=== PATIENT | male | born 1930 | race Caucasian/White ===

== ENCOUNTER 2018-01-25 14:35 | Emergency (ER) | payer MEDICARE ==
[2018-01-25 15:42] LABS: Urine Appearance Cloudy; Urine Blood 1+ (Negative); Urine Color Yellow; Urine Ketones Negative (Negative); Urine Protein 1+(30 mg/dL) (Negative); Urine Specific Gravity 1.023 (1.010-1.030); Urine Urobilinogen Negative (Negative)
[2018-01-25 15:45] LABS: ABS Basophils 0.1 10^3/ul (0-0.2); ABS Eosinophils 0.1 10^3/ul (0-0.6); ABS Lymphocytes 1.3 10^3/ul (1.0-4.8); ABS Monocytes 1.4 10^3/ul (0-0.8); ABS Neutrophils 6.3 10^3/ul (1.5-7.7); ABS Nucleated RBC 0 10^3/ul; Hematocrit 36 % (42-52); Hemoglobin 12.3 g/dl (14.0-18.0); Lymphocyte % 13.9 % (25-47); Mean Corpuscular HGB Conc 34 g/dl (31-36); Mean Corpuscular Hemoglobin 32 pg (27-31); Mean Corpuscular Volume 93 fL (80-94); Mean Platelet Volume 7.9 um3 (7.4-10.4); Nucleated Red Blood Cells % 0; Platelet Count 242 10^3/ul (150-450); Red Blood Count 3.86 10^6/ul (4.0-5.4); Red Cell Distribution Width 14 % (10.5-15); White Blood Count 9.2 10^3/ul (3.5-10.8)
[2018-01-25 16:05] LABS: EGFR Non-African American 66.7 (>60)
--- NOTE | 2018-01-25 16:08 | RAD ---
INDICATION: Altered mental status. COMPARISON: Comparison is made with prior study from July 13, 2016. TECHNIQUE: Dual-energy PA and lateral views of the chest were obtained. FINDINGS: The heart is within normal limits in size. Mediastinal and hilar contours appear within normal limits. The lungs are underinflated. There is a small infiltrate at the left lung base. No pleural effusion is seen. IMPRESSION: LOW LUNG VOLUMES, SMALL LEFT BASILAR INFILTRATE.
[2018-01-25] MEDS ORDERED: Levofloxacin TAB* 250 MG PO ONE (17:31)
[2018-01-25 17:38] VITALS: BP 111/55
--- NOTE | 2018-01-25 20:45 | ED ---
Hawa Brown Edward, scribed for Thor Fishman MD on 01/25/18 at 1457 . Altered Mental Status - HPI Summary HPI Summary: 87 y/o male presents to ED c/o acute worsening of his dementia in the past week. PMHx dementia. Around 1 week ago pt had a cough and a head cold. Pt sent by PCP for concerns of UTI and PNA. Denies pain. Associated sx: decreased appetite, urinary and fecal incontinence. - History Of Current Complaint Chief Complaint: EDAltMentalStatus Stated Complaint: ILLNESS Time Seen by Provider: 01/25/18 14:55 Hx Obtained From: Family/Latex Caster Timing: Lasting Weeks Aggravating Factor(s): Nothing Alleviating Factor(s): Nothing - Allergies/Home Medications Allergies/Adverse Reactions: Allergies Allergy/AdvReac Type Severity Reaction Status Date / Time No Known Allergies Allergy Verified 01/25/18 14:59 Home Medications: Home Medications Digoxin TAB* [Lanoxin TAB*] 62.5 mcg PO DAILY 01/25/18 [History Confirmed ] Diltiazem TAB* [Cardizem TAB*] 120 mg PO DAILY 01/25/18 [History Confirmed 01/25] Latanoprost 0.005%* [Xalatan 0.005%*] 1 drop BOTH EYES QPM 01/25/18 [History Confirmed 01/25/18] Warfarin TAB(*) [Coumadin TAB(*)] 1 mg PO SUMOTUWEFRSA 01/25/18 [History Confirmed 01/25/18] Warfarin TAB(*) [Coumadin TAB(*)] 2 mg PO TH 01/25/18 [History Confirmed ] PMH/Surg Hx/FS Hx/Imm Hx Previously Healthy: No Cardiovascular History: Reports: Hx Coronary Artery Disease, Hx Hypercholesterolemia, Hx Hypertension History: Reports: Hx Benign Prostatic Hyperplasia Musculoskeletal History: Reports: Hx Arthritis, Hx Osteoporosis Sensory History: Reports: Hx Cataracts - BILATERAL, Hx Contacts or Glasses - GLASSES, Hx Hearing Aid, Hx Hearing Problem Opthamlomology History: Reports: Hx Cataracts - BILATERAL, Hx Contacts or Glasses - GLASSES Neurological History: Reports: Hx Dementia, Other Neuro Impairments/Disorders - MILD DEMENTIA, MEMORY LOSS - Surgical History Surgery Procedure, Year, and Place: 1989 [place] [facility], [facility]. 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, [facility] Hx Anesthesia Reactions: Yes - CONFUSED AFTER RETINA SURGERY Infectious Disease History: No Infectious Disease History: Reports: Hx Hepatitis Denies: Traveled Outside the [place] in Last 30 Days - Family History Known Family History: Negative: Other - negative malignant hypothermia, negative adverse reacton to anesthesia Family History: No FHx anesthesia reaction - Social History Alcohol Use: Daily Alcohol Amount: wine 1-2 glasses Hx Substance Use: No Substance Use Type: Reports: None Hx Tobacco Use: No Smoking Status (MU): Never Smoked Tobacco Review of Systems Constitutional: Negative Eyes: Negative ENT: Other - head cold Cardiovascular: Negative Positive: Cough Positive: Other - decreased appetite, fecal incontinence Positive: incontinence Musculoskeletal: Negative Skin: Negative Neurological: Other - AMS Psychological: Normal All Other Systems Reviewed And Are Negative: Yes Physical Exam - Summary Physical Exam Summary: Appearance: The patient is well-nourished in no acute distress and in no acute pain. Skin: The skin is warm and dry and skin color reflects adequate perfusion. The skin is tense. HEENT: The head is normocephalic and atraumatic. The pupils are equal and reactive. The conjunctivae are clear and without drainage. Nares are patent and without drainage. Mouth reveals dry mucous membranes and the throat is without erythema and exudate. The external ears are intact. The ear canals are patent and without drainage. The tympanic membranes are intact. Neck: the neck is supple with full range of motion and non-tender. There are no carotid bruits. There is no neck vein distension. Respiratory: Chest is non-tender. Lungs are clear to auscultation and breath sounds are symmetrical and equal. Cardiovascular: Heart is regular rate and rhythm. There is no murmur or rub auscultated. There is no peripheral edema and pulses are symmetrical and equal. Abdomen: The abdomen is soft and non-tender. There are normal bowel sounds heard in all four quadrants and there is no organomegaly palpated. Musculoskeletal: There is no back tenderness noted. Extremities are non-tender with full range of motion. There is good capillary refill. There is no peripheral edema or calf tenderness elicited. Neurological: Patient is alert and oriented to person, place and time. The patient has symmetrical motor strength in all four extremities. Cranial nerves are grossly intact. Deep tendon reflexes are symmetrical and equal in all four extremities. Psychiatric: The patient has an appropriate affect and does not exhibit any anxiety or depression. Triage Information Reviewed: Yes Vital Signs On Initial Exam: Initial Vitals Temp Pulse Resp BP Pulse Ox 98.7 F 67 18 114/54 98 01/25/18 14:37 01/25/18 14:37 01/25/18 14:37 01/25/18 14:37 01/25/18 14:37 Vital Signs Reviewed: Yes Diagnostics - Vital Signs Vital Signs Temp Pulse Resp BP Pulse Ox 01/25/18 14:37 98.7 F 67 18 114/54 98 - Laboratory Lab Results: Lab Results 01/25/18 01/25/18 01/25/18 Range/Units 15:20 15:35 15:35 WBC 9.2 (3.5-10.8) 10^3/ul RBC 3.86 L (4.0-5.4) 10^6/ul Hgb 12.3 L (14.0-18.0) g/dl Hct 36 L (42-52) % MCV 93 (80-94) fL MCH 32 H (27-31) pg MCHC 34 (31-36) g/dl RDW 14 (10.5-15) % Plt Count 242 (150-450) 10^3/ul MPV 7.9 (7.4-10.4) um3 Neut % (Auto) 68.6 (38-83) % Lymph % (Auto) 13.9 L (25-47) % Cuming % (Auto) 15.6 H (0-7) % Eos % (Auto) 1.0 (0-6) % Baso % (Auto) 0.9 (0-2) % Absolute Neuts (auto) 6.3 (1.5-7.7) 10^3/ul Absolute Lymphs (auto) 1.3 (1.0-4.8) 10^3/ul Absolute Monos (auto) 1.4 H (0-0.8) 10^3/ul Absolute Eos (auto) 0.1 (0-0.6) 10^3/ul Absolute Basos (auto) 0.1 (0-0.2) 10^3/ul Absolute Nucleated RBC 0 10^3/ul Nucleated RBC % 0 Sodium 140 (139-145) mmol/L Potassium 3.9 (3.5-5.0) mmol/L Chloride 106 (101-111) mmol/L Carbon Dioxide 27 (22-32) mmol/L Anion Gap 7 (2-11) mmol/L BUN 17 (6-24) mg/dL Creatinine 1.05 (0.67-1.17) mg/dL Est GFR ( Amer) 85.7 (>60) Est GFR (Non-Af Amer) 66.7 (>60) BUN/Creatinine Ratio 16.2 (8-20) Glucose 81 (70-100) mg/dL Calcium 9.0 (8.6-10.3) mg/dL Total Bilirubin 0.60 (0.2-1.0) mg/dL AST 16 (13-39) U/L ALT 13 (7-52) U/L Alkaline Phosphatase 57 (34-104) U/L C-Reactive Protein 86.94 H (< 5.00) mg/L Total Protein 7.1 (6.4-8.9) g/dL Albumin 3.3 (3.2-5.2) g/dL Globulin 3.8 (2-4) g/dL Albumin/Globulin Ratio 0.9 L (1-3) Urine Color Yellow Urine Appearance Cloudy Urine pH 6.0 (5-9) Ur Specific Hardy 1.023 (1.010-1.030) Urine Protein 1+(30 mg/dl) A (Negative) Urine Ketones Negative (Negative) Urine Blood 1+ A (Negative) Urine Nitrate Negative (Negative) Urine Bilirubin Negative (Negative) Urine Urobilinogen Negative (Negative) Ur Leukocyte Esterase Trace A (Negative) Urine WBC (Auto) 2+(11-20/hpf) A (Absent) Urine RBC (Auto) 3+(>10/hpf) A (Absent) Urine Bacteria Absent (Absent) Hyaline Casts Present A (Absent) Urine Glucose Negative (Negative) Digoxin 0.6 L (0.8-2.0) ng/ml Result Diagrams: 01/25/18 15:35 01/25/18 15:35 Lab Statement: Any lab studies that have been ordered have been reviewed, and results considered in the medical decision making process. - Radiology CXR Radiology Interpretation Completed By: Radiologist - LOW LUNG VOLUMES. SMALL LEFT BASILAR INFILTRATE Re-Evaluation - Re-Evaluation 1' Re-Evaluation Time: 17:25 Comment: Discuss plan to d/c, test results Altered Mental Statu Course/Dx - Course Course Of Treatment: Mr. Vizcaino presented with his who was concerned that he may have pneumonia or a UTI because he has not been acting quite right. He was found to have an equivocal U/A and a likely infiltrate on CXR. He was stable here in the ED and I will treat him with PO antibiotics to cover both. - Diagnoses Provider Diagnoses: PNA (pneumonia) Discharge - Sign-Out/Discharge Documenting (check all that apply): Discharge - Discharge Plan Condition: Stable Disposition: HOME Prescriptions: Levofloxacin TAB* [Levaquin TAB*] 750 mg PO DAILY #10 tab Patient Education Materials: Pneumonia (ED) Referrals: Nicolasa Garner MD [Primary Care Provider] - 4 Days (PLEASE F/U IN 3-5 DAYS) Additional Instructions: RETURN TO THE ED FOR CHANGING OR WORSENING SYMPTOMS - Billing Disposition and Condition Condition: STABLE Disposition: HOME The documentation as recorded by the Hawa moreno Edward accurately reflects the service I personally performed and the decisions made by me, Thor Fishman MD.
== END 2018-01-25 17:45 | disposition home or self-care (01) ==
LOC: ED 14:35
DX: J18.9 Pneumonia, unspecified organism (principal); R05 Cough
CPT/HCPCS: 36415; 71046; 80053; 80162; 81003; 81015; 85025; 86140; 87086; 99283; A9270-GY

== ENCOUNTER 2018-02-10 10:46 | Emergency (ER) | payer MEDICARE ==
--- OUTSIDE RECORDS SUMMARY | 2018-02-10 11:01 | XMS REPORT ---
:1930 External Reference #:[id number] Author Organization [employer] [facility] Address [address] [address] Phone [phone] Care Team Providers Name Role Phone Nicolasa Garner MD Primary Care Physician Unavailable Payers Type Date Identification Numbers Payment Provider Subscriber Medicare Primary Effective: Policy Number: Medicare Ryder Vizcaino 1955 [id number] PayID: [id number] [address] [place] [address] [facility] Policy Number: [id number] [facility] Ryder iVzcaino PayID: [id number] [address] [place] [address] Advance Directives Type Date Description Status Comment Other Directive 07/18/2016 Health Care Proxy Current and Verified Problems Date Description Provider Status Onset: 02/08/2014 Heart disease Vikas Reece M.D. Active Onset: 02/08/2014 Coronary arteriosclerosis Vikas Reece M.D. Active Onset: 04/26/2015 Alzheimer's disease Lisa Lr M.D. Active Onset: 07/13/2016 Pulmonary embolism Celio Santamaria M.D. 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 Active Onset: 07/13/2016 Paroxysmal atrial fibrillation Celio Santamaria M.D. Active Note: Intolerant of long acting cardizem [place] [facility] [place] Onset: 08/26/2016 Dementia Celio Santamaria M.D. Active Onset: 07/13/2016 Deep venous thrombosis of lower Celio Santamaria M.D. 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 Smoking Patient is a former smoker quit smoking cigarettes whe he was in his 40's Recreational Drug Use Denies Drug Use Daily Caffeine Consumes on average 1 cup of decaffeinated hot tea per day Exercise Type/Frequency Exercises sporadically walking around block Allergies, Adverse Reactions, Alerts Date Description Reaction Status Severity Comments 02/08/2014 Simvastatin cognitive impairment active per patients 10/19/2012 NKDA inactive Medications Medication Date Status Form Strength Qnty SIG Indications Ordering Provider Digoxin 08/14/ Active Tablets 125mcg 45tabs 1/2 tab by Z79.01 Vikas Schneider 2015 mouth every Brand, day M.D. Aricept 04/22/ Active Tablets 10mg 60tabs take two Naila 2013 tablets MD Tejinder every day Vitamin B-12 / Active Tablets 500mcg 1 by mouth Unknown 0000 Sub three times a week Warfarin / Active Tablets 1mg 90tabs daily as I26.99 Brett E. Sodium 0000 directed Carissa, M.DTanika 2MG Latanoprost / Active Solution 0.005% 1 gtt to Unknown 0000 bothe eyes daily Diltiazem CD / Active Caps ER 120mg 90caps 1 by mouth Nicolasa 0000 24HR every day Cora Garner Vitamin D3 / Active Capsules 500U 1 by mouth Unknown Super Strength 0000 2-3 times a week Levofloxacin / Active Tablets 750mg Take One Unknown 0000 Tablet By Mouth Every Day ends 02/03/18 Xarelto 02/01/ Hx Tablets 20mg 90tabs 1 by mouth 427.32 Vikas Schneider 2014 - every day Brand, 11/20/ M.DTanika 2015 Aricept 10/19/ Hx Tablets 10mg 60tabs 2 tab by Lisa Christensen 2012 - mouth every Stackman, day M.D. 2012 Aricept / Hx Tablets 23mg 30tabs 1 tab po Lisa Christensen 0000 - qhs Stacksterling, 04/22/ M.DTanika 2012 Aspirin / Hx Tablets 81mg 1 po qd Unknown 0000 - 2015 Vitamin 00/00/ Hx Tablets 1 po qd Unknown B-Complex - 2014 Diltiazem HCL /00/ Hx Caps ER 120mg 90caps 1 po qd Unknown 0000 - 24HR 2015 Doxazosin /00/ Hx Tablets 4mg 30tabs 1 po qd Unknown Mesylate - 2015 Lisinopril /00/ Hx Tablets 20mg 90tabs 1 po qd Unknown 2014 Simvastatin /00/ Hx Tablets 20mg 90tabs 1 po qhs Unknown 2013 Vitamin D-3 00/ Hx Tablets 400Unit 1 po qd Unknown 2013 Glutamine /00/ Hx Capsules 500mg Unknown 2013 Ginkoba 00/ Hx Tablets 40mg qod Unknown 2013 Fish Oil / Hx Capsules 600mg 90caps 1 po qd Unknown - 2014 Vitamin D3 00/ Hx Capsules 400Unit 1 cap po Unknown 0000 - daily 2014 Mirtazapine 00/ Hx Tablets 7.5mg 30tabs pt not Unknown 0000 - using it . 2015 Diltiazem HCL 0000/ Hx Tablets 30mg 1 by mouth Z79.01 Unknown 0000 - four times 11/12/ a day 2016 Digoxin 00/00/ Hx Tablets 0.125mg 1/2 by Unknown 0000 - mouth every 08/14/ day 2016 Magnesium /00/ Hx Capsules 125mg 1 caps a Unknown Citrate 0000 - couple 01/28/ times a 2017 week Immunizations CPT Code Status Date Vaccine Lot # [id number] Given 09/07/2017 Influenza Virus Vaccine, Quadrivalent, Split, [id number] Preservative Free [id number] Given 09/09/2016 Pneumonia Vaccine [id number] Vital Signs Date Vital Result Comment 01/29/2018 Height 66 inches 5'6" Weight 148.00 lb Heart Rate 76 /min BP Systolic Sitting 92 mmHg BP Diastolic Sitting 50 mmHg Respiratory Rate 15 /min BMI (Body Mass Index) 23.9 kg/m2 12/10/2017 Weight 152.00 lb Heart Rate 72 /min BP Systolic Sitting 98 mmHg BP Diastolic Sitting 58 mmHg O2 % BldC Oximetry 96 % 09/07/2017 Height 66.5 inches 5'6.50" Weight 150.38 lb Heart Rate 65 /min BP Systolic Sitting 106 mmHg BP Diastolic Sitting 64 mmHg O2 % BldC Oximetry 95 % BMI (Body Mass Index) 23.9 kg/m2 06/26/2017 Height 58 inches 4'10" Weight 148.00 lb with shoes Heart Rate 108 /min BP Systolic Sitting 120 mmHg Rue reg cuff BP Diastolic Sitting 66 mmHg Rue reg cuff BP Systolic Standing 118 mmHg Rue reg cuff BP Diastolic Standing 68 mmHg Rue reg cuff Respiratory Rate 18 /min BMI (Body Mass Index) 30.9 kg/m2 Ejection Fraction 45-50% 07/14/2016-echo 06/18/2017 Height 58 inches 4'10" Weight 150.00 lb Heart Rate 88 /min BP Systolic Sitting 110 mmHg BP Diastolic Sitting 74 mmHg Respiratory Rate 18 /min BMI (Body Mass Index) 31.3 kg/m2 04/29/2017 Weight 151.12 lb Heart Rate 66 /min BP Systolic 146 mmHg BP Diastolic 70 mmHg Body Temperature 97.9 F O2 % BldC Oximetry 97 % 12/11/2016 Height 68 inches 5'8" Weight 152.00 lb Heart Rate 60 /min BP Systolic Sitting 112 mmHg BP Diastolic Sitting 68 mmHg Respiratory Rate 17 /min BMI (Body Mass Index) 23.1 kg/m2 12/10/2016 Weight 150.00 lb with shoes Heart Rate 61 /min irreg BP Systolic Sitting 138 mmHg Lue reg cuff BP Diastolic Sitting 78 mmHg Lue reg cuff BP Systolic Standing 124 mmHg Lue regcuff BP Diastolic Standing 70 mmHg Lue regcuff Respiratory Rate 17 /min 11/28/2016 Body Temperature 98.2 F recheck 11/28/2016 Height 68 inches 5'8" Weight 158.12 lb Heart Rate 64 /min BP Systolic 110 mmHg BP Diastolic 70 mmHg Body Temperature 94.5 F O2 % BldC Oximetry 97 % BMI (Body Mass Index) 24.0 kg/m2 08/26/2016 Height 68 inches 5'8" Weight 145.38 lb Heart Rate 71 /min BP Systolic 100 mmHg BP Diastolic 75 mmHg Body Temperature 97.5 F O2 % BldC Oximetry 98 % BMI (Body Mass Index) 22.1 kg/m2 08/08/2016 Height 68 inches 5'8" Weight 143.50 lb with shoes Heart Rate 70 /min BP Systolic Sitting 110 mmHg Rue reg cuff BP Diastolic Sitting 60 mmHg Rue reg cuff BP Systolic Standing 106 mmHg Rue reg cuff BP Diastolic Standing 72 mmHg Rue reg cuff Respiratory Rate 16 /min BMI (Body Mass Index) 21.8 kg/m2 Ejection Fraction 45-50% 07/14/2016 06/05/2016 Height 68 inches 5'8" Weight 149.50 lb Heart Rate 68 /min BP Systolic Sitting 102 mmHg BP Diastolic Sitting 60 mmHg Respiratory Rate 16 /min BMI (Body Mass Index) 22.7 kg/m2 12/06/2015 Height 68 inches 5'8" Weight 162.00 lb Heart Rate 76 /min BP Systolic Sitting 102 mmHg BP Diastolic Sitting 70 mmHg Respiratory Rate 17 /min BMI (Body Mass Index) 24.6 kg/m2 07/26/2015 Height 68 inches 5'8" Weight 168.31 lb with shoes Heart Rate 58 /min BP Systolic Sitting 126 mmHg LA, reg cuff BP Diastolic Sitting 64 mmHg LA, reg cuff BP Systolic Standing 128 mmHg LA BP Diastolic Standing 68 mmHg LA Respiratory Rate 14 /min BMI (Body Mass Index) 25.6 kg/m2 Ejection Fraction 55-60% 02/08/2015 04/26/2015 Height 68 inches 5'8" Weight 168.50 lb Heart Rate 54 /min BP Systolic Sitting 130 mmHg BP Diastolic Sitting 78 mmHg Respiratory Rate 16 /min BMI (Body Mass Index) 25.6 kg/m2 03/14/2015 Height 68 inches 5'8" Weight 171.00 lb w/shoes Heart Rate 66 /min BP Systolic Sitting 160 mmHg LA reg cuff BP Diastolic Sitting 82 mmHg LA reg cuff Respiratory Rate 12 /min BMI (Body Mass Index) 26.0 kg/m2 Ejection Fraction 60-65 echo 11/08/13 02/23/2015 Height 68 inches 5'8" Weight 172.00 lb Heart Rate 140 /min BP Systolic Sitting 116 mmHg right arm, reg cuff BP Diastolic Sitting 74 mmHg right arm, reg cuff BP Systolic Standing 100 mmHg right arm, reg cuff BP Diastolic Standing 72 mmHg right arm, reg cuff Respiratory Rate 16 /min BMI (Body Mass Index) 26.1 kg/m2 Ejection Fraction 55-60% 02/08/15 02/01/2015 Height 68 inches 5'8" Weight 173.00 lb w/o shoes Heart Rate 104 /min irreg BP Systolic Sitting 118 mmHg Ra, reg cuff BP Diastolic Sitting 82 mmHg Ra, reg cuff BP Systolic Standing 104 mmHg Ra BP Diastolic Standing 70 mmHg Ra Respiratory Rate 18 /min BMI (Body Mass Index) 26.3 kg/m2 Ejection Fraction 62% Calculated Ef as of 02/10/13 11/02/2014 Height 68 inches 5'8" Weight 173.00 lb Heart Rate 64 /min BP Systolic Sitting 110 mmHg BP Diastolic Sitting 64 mmHg Respiratory Rate 16 /min BMI (Body Mass Index) 26.3 kg/m2 04/27/2014 Height 68 inches 5'8" Weight 164.00 lb Heart Rate 72 /min BP Systolic Sitting 112 mmHg BP Diastolic Sitting 60 mmHg Respiratory Rate 16 /min BMI (Body Mass Index) 24.9 kg/m2 02/08/2014 Height 68 inches 5'8" Weight 167.00 lb Heart Rate 56 /min BP Systolic Sitting 90 mmHg LA reg cuff BP Diastolic Sitting 50 mmHg LA reg cuff BP Systolic Standing 110 mmHg LA BP Diastolic Standing 62 mmHg LA Respiratory Rate 16 /min BMI (Body Mass Index) 25.4 kg/m2 10/27/2013 Heart Rate 60 /min BP Systolic Sitting 140 mmHg BP Diastolic Sitting 70 mmHg Respiratory Rate 16 /min 04/22/2013 Height 70 inches 5'10" Weight 159.00 lb Heart Rate 56 /min BP Systolic Sitting 102 mmHg BP Diastolic Sitting 54 mmHg Respiratory Rate 8 /min BMI (Body Mass Index) 22.8 kg/m2 10/19/2012 Heart Rate 60 /min BP Systolic 120 mmHg BP Diastolic 58 mmHg Respiratory Rate 14 /min Results Test Date Test Result H/L Range Note CBC Auto Diff 01/25/2018 White Blood Count 9.2 10^3/uL 3.5-10.8 Red Blood Count 3.86 10^6/uL Low 4.0-5.4 Hemoglobin 12.3 g/dL Low 14.0-18.0 Hematocrit 36 % Low 42-52 Mean Corpuscular Volume 93 fL 80-94 Mean Corpuscular Hemoglobin 32 pg High 27-31 Mean Corpuscular HGB Conc 34 g/dL 31-36 Red Cell Distribution Width 14 % 10.5-15 Platelet Count 242 10^3/uL 150-450 Mean Platelet Volume 7.9 um3 7.4-10.4 Abs Neutrophils 6.3 10^3/uL 1.5-7.7 Abs Lymphocytes 1.3 10^3/uL 1.0-4.8 Abs Monocytes 1.4 10^3/uL High 0-0.8 Abs Eosinophils 0.1 10^3/uL 0-0.6 Abs Basophils 0.1 10^3/uL 0-0.2 Abs Nucleated RBC 0 10^3/uL Granulocyte % 68.6 % 38-83 Lymphocyte % 13.9 % Low 25-47 Monocyte % 15.6 % High 0-7 Eosinophil % 1.0 % 0-6 Basophil % 0.9 % 0-2 Nucleated Red Blood Cells % 0 Comp Metabolic Panel 01/25/2018 Sodium 140 mmol/L 139-145 Potassium 3.9 mmol/L 3.5-5.0 Chloride 106 mmol/L 101-111 Co2 Carbon Dioxide 27 mmol/L 22-32 Anion Gap 7 mmol/L 2-11 Glucose 81 mg/dL 70-100 Blood Urea Nitrogen 17 mg/dL 6-24 Creatinine 1.05 mg/dL 0.67-1.17 BUN/Creatinine Ratio 16.2 8-20 Calcium 9.0 mg/dL 8.6-10.3 Total Protein 7.1 g/dL 6.4-8.9 Albumin 3.3 g/dL 3.2-5.2 Globulin 3.8 g/dL 2-4 Albumin/Globulin Ratio 0.9 Low 1-3 Total Bilirubin 0.60 mg/dL 0.2-1.0 Alkaline Phosphatase 57 U/L 34-104 Alt 13 U/L 7-52 Ast 16 U/L 13-39 Egfr Non- 66.7 >60 Egfr 85.7 >60 1 Laboratory test finding 01/25/2018 C Reactive Protein 86.94 mg/L High &lt ; 5.00 2 Digoxin 0.6 ng/ml Low 0.8-2.0 Urinalysis Profile 01/25/2018 Urine Color Yellow Urine Appearance Cloudy Urine Specific [place] 1.023 1.010-1.030 Urine pH 6.0 5-9 Urine Urobilinogen Negative Negative Urine Ketones Negative Negative Urine Protein 1+(30 mg/dL) Negative Urine Leukocytes Trace Negative Urine Blood 1+ Negative Urine Nitrite Negative Negative Urine Bilirubin Negative Negative Urine Glucose Negative Negative Urine White Blood Cell 2+(11-20/hpf) Absent Urine Red Blood Cell 3+(>10/hpf) Absent Urine Bacteria Absent Absent Urine Hyaline Casts Present Absent Urine Culture And Sensitivities 01/25/2018 Urine Culture SEE RESULT BELOW 3 Protime W/ Inr 01/07/2018 Prothrombin Time 26.8 Inr 2.2 Protime W/ Inr 12/10/2017 Prothrombin Time 28.2 Inr 2.3 Protime W/ Inr 12/03/2017 Prothrombin Time 18.5 Inr 1.5 Protime W/ Inr 11/12/2017 Prothrombin Time 26.9 Inr 2.2 Protime W/ Inr 11/02/2017 Prothrombin Time 21.6 Inr 1.8 Protime W/ Inr 10/22/2017 Prothrombin Time 24.5 Inr 2.0 Protime W/ Inr 09/24/2017 Prothrombin Time 26.4 Inr 2.2 Protime W/ Inr 09/14/2017 Prothrombin Time 21.1 Inr 1.7 Protime W/ Inr 09/07/2017 Prothrombin Time 21.7 Inr 1.8 Protime W/ Inr 09/02/2017 Prothrombin Time 36.2 Inr 3.0 Lipid Profile (Trig/Chol/HDL) 08/28/2017 Triglycerides 100 mg/dL 4 Cholesterol 220 mg/dL 5 HDL Cholesterol 58.7 mg/dL 6 LDL Cholesterol 141 mg/dL 7 Comp Metabolic Panel 08/28/2017 Sodium 139 mmol/L 133-145 Potassium 4.1 mmol/L 3.5-5.0 Chloride 107 mmol/L 101-111 Co2 Carbon Dioxide 25 mmol/L 22-32 Anion Gap 7 mmol/L 2-11 Glucose 86 mg/dL 70-100 Blood Urea Nitrogen 17 mg/dL 6-24 Creatinine 0.95 mg/dL 0.67-1.17 BUN/Creatinine Ratio 17.9 8-20 Calcium 9.1 mg/dL 8.6-10.3 Total Protein 6.6 g/dL 6.4-8.9 Albumin 3.9 g/dL 3.2-5.2 Globulin 2.7 g/dL 2-4 Albumin/Globulin Ratio 1.4 1-3 Total Bilirubin 1.10 mg/dL High 0.2-1.0 Alkaline Phosphatase 68 U/L 34-104 Alt 16 U/L 7-52 Ast 21 U/L 13-39 Egfr Non- 75.0 >60 Egfr 96.4 >60 8 CBC Auto Diff 08/28/2017 White Blood Count 9.6 10^3/uL 3.5-10.8 Red Blood Count 3.95 10^6/uL Low 4.0-5.4 Hemoglobin 12.7 g/dL Low 14.0-18.0 Hematocrit 38 % Low 42-52 Mean Corpuscular Volume 95 fL High 80-94 Mean Corpuscular Hemoglobin 32 pg High 27-31 Mean Corpuscular HGB Conc 34 g/dL 31-36 Red Cell Distribution Width 14 % 10.5-15 Platelet Count 229 10^3/uL 150-450 Mean Platelet Volume 9 um3 7.4-10.4 Abs Neutrophils 6.6 10^3/uL 1.5-7.7 Abs Lymphocytes 1.6 10^3/uL 1.0-4.8 Abs Monocytes 1.3 10^3/uL High 0-0.8 Abs Eosinophils 0.1 10^3/uL 0-0.6 Abs Basophils 0.1 10^3/uL 0-0.2 Abs Nucleated RBC 0 10^3/uL Granulocyte % 68.2 % 38-83 Lymphocyte % 16.2 % Low 25-47 Monocyte % 13.2 % High 1-9 Eosinophil % 1.4 % 0-6 Basophil % 1.0 % 0-2 Nucleated Red Blood Cells % 0 Protime W/ Inr 08/06/2017 Prothrombin Time 24.6 Inr 2.0 Protime W/ Inr 07/09/2017 Prothrombin Time 26.5 Inr 2.2 Protime W/ Inr 07/02/2017 Prothrombin Time 23.2 Inr 1.9 Protime W/ Inr 06/24/2017 Prothrombin Time 16.9 Inr 1.4 Protime W/ Inr 06/10/2017 Prothrombin Time 23.7 Inr 1.9 Protime W/ Inr 05/13/2017 Prothrombin Time 28.3 Inr 2.4 Comp Metabolic Panel 04/30/2017 Sodium 141 mmol/L 133-145 Potassium 4.1 mmol/L 3.5-5.0 Chloride 106 mmol/L 101-111 Co2 Carbon Dioxide 27 mmol/L 22-32 Anion Gap 8 mmol/L 2-11 Glucose 96 mg/dL 70-100 Blood Urea Nitrogen 15 mg/dL 6-24 Creatinine 0.96 mg/dL 0.67-1.17 BUN/Creatinine Ratio 15.6 8-20 Calcium 9.3 mg/dL 8.6-10.3 Total Protein 7.1 g/dL 6.4-8.9 Albumin 3.9 g/dL 3.2-5.2 Globulin 3.2 g/dL 2-4 Albumin/Globulin Ratio 1.2 1-3 Total Bilirubin 0.90 mg/dL 0.2-1.0 Alkaline Phosphatase 62 U/L 34-104 Alt 13 U/L 7-52 Ast 19 U/L 13-39 Egfr Non- 74.1 >60 Egfr 95.3 >60 9 Protime W/ Inr 04/29/2017 Prothrombin Time 24.9 Inr 2.1 Protime W/ Inr 03/31/2017 Prothrombin Time 31.7 Inr 2.6 Protime W/ Inr 03/03/2017 Prothrombin Time 26.3 Inr 2.2 Protime W/ Inr 02/03/2017 Prothrombin Time 28.7 Inr 2.4 Protime W/ Inr 01/20/2017 Prothrombin Time 28.0 Inr 2.3 Protime W/ Inr 01/13/2017 Prothrombin Time 24.4 Inr 2.0 Protime W/ Inr 12/30/2016 Prothrombin Time 32.2 Inr 2.7 Protime W/ Inr 12/16/2016 Prothrombin Time 31.6 Inr 2.6 Protime W/ Inr 12/09/2016 Prothrombin Time 37.4 Inr 3.1 Protime W/ Inr 12/02/2016 Prothrombin Time 28.6 Inr 2.4 Protime W/ Inr 11/25/2016 Prothrombin Time 25.8 Inr 2.2 Protime W/ Inr 11/18/2016 Prothrombin Time 20.4 Inr 1.7 Protime W/ Inr 10/21/2016 Prothrombin Time 25.5 Inr 2.1 Protime W/ Inr 09/23/2016 Prothrombin Time 27.5 Inr 2.3 Protime W/ Inr 09/09/2016 Prothrombin Time 27.2 Inr 2.3 Protime W/ Inr 08/26/2016 Prothrombin Time 29.2 Inr 2.4 Laboratory test finding 08/26/2016 Digoxin 0.5 ng/ml Low 0.8-2.0 1 Because ethnic data is not always readily available, this report includes an eGFR for both -Americans and non- Americans. The National Kidney Disease Education Program (NKDEP) does not endorse the use of the MDRD equation for patients that are not between the ages of 18 and 70, are , have extremes of body size, muscle mass, or nutritional status, or are non- or non-. According to the National Kidney Foundation, irrespective of diagnosis, the stage of the disease is based on the level of kidney function: Stage Description GFR(mL/min/1.73 m(2)) 1 Kidney damage with normal or decreased GFR 90 2 Kidney damage with mild decrease in GFR 60-89 3 Moderate decrease in GFR 30-59 4 Severe decrease in GFR 15-29 5 Kidney failure <15 (or dialysis) 2 Acute inflammation: >10.00 3 SEE RESULT BELOW Name: RYDER VIZCAINO : [address]: Thor Fishman MD Acct: [id number] Unit: [id number] AGE: 87 Location: ED Re01/25/18 SEX: M Status: DEP ER SPEC: [id number] [place]: 01/25/18-[address] [facility] [address]: Thor Fishman MD REQ: [id number] RECD: 01/25/18 STATUS: COMP [facility] : Nicolasa Garner MD _ SOURCE: URINE SPDESC: ORDERED: Urine Culture Procedure Result Reported Site Urine Culture Final 01/26/18- 1253 ML No growth of clinically significant organisms * ML - Main Lab . END OF REPORT DEPARTMENT OF PATHOLOGY, [address] [place] [address] Jayesh Dinero M.D. Director [facility] # [id number] 4 Desirable: <150 Borderline High: 150-199 High: 200-499 Very High: >500 5 Desirable: <200 Borderline High: 200-239 High: >239 6 Low: <40 Desirable: 40-60 High: >60 7 Desirable: <100 Near Optimal: 100-129 Borderline High: 130-159 High: 160-189 Very High: >189 8 Because ethnic data is not always readily available, this report includes an eGFR for both -Americans and non- Americans. The National Kidney Disease Education Program (NKDEP) does not endorse the use of the MDRD equation for patients that are not between the ages of 18 and 70, are , have extremes of body size, muscle mass, or nutritional status, or are non- or non-. According to the National Kidney Foundation, irrespective of diagnosis, the stage of the disease is based on the level of kidney function: Stage Description GFR(mL/min/1.73 m(2)) 1 Kidney damage with normal or decreased GFR 90 2 Kidney damage with mild decrease in GFR 60-89 3 Moderate decrease in GFR 30-59 4 Severe decrease in GFR 15-29 5 Kidney failure <15 (or dialysis) 9 Because ethnic data is not always readily available, this report includes an eGFR for both -Americans and non- Americans. The National Kidney Disease Education Program (NKDEP) does not endorse the use of the MDRD equation for patients that are not between the ages of 18 and 70, are , have extremes of body size, muscle mass, or nutritional status, or are non- or non-. According to the National Kidney Foundation, irrespective of diagnosis, the stage of the disease is based on the level of kidney function: Stage Description GFR(mL/min/1.73 m(2)) 1 Kidney damage with normal or decreased GFR 90 2 Kidney damage with mild decrease in GFR 60-89 3 Moderate decrease in GFR 30-59 4 Severe decrease in GFR 15-29 5 Kidney failure <15 (or dialysis) Procedures Date CPT Code Description Status 01/06/2017 57476 Holter Monitor Review (24 hr)dr syed & bia Completed only 12/30/2016 80711 ECG Monitor/Recording W/Visual Superimposition Scanning Completed 12/10/2016 20826 EKG Tracing & Interpretation Completed 08/08/2016 40821 EKG Tracing & Interpretation Completed 07/14/2016 58542 ECHO Transthorasic Realtime 2D W Doppler & Color Completed Flow [facility] 07/13/2016 00059 EKG, Interpretation Only Completed 07/10/2016 13715 EKG, Interpretation Only Completed 06/12/2016 Colonoscopy Completed 07/26/2015 72847 EKG Tracing & Interpretation Completed 03/14/2015 92263 EKG Tracing & Interpretation Completed 02/23/2015 37944 EKG Tracing & Interpretation Completed 02/09/2015 81275 Holter Monitoring 24 HR New Completed 02/08/2015 37615 ECHO Transthoracic, Real-Time 2D With Doppler And Color Completed Flow 02/01/2015 18389 EKG Tracing & Interpretation Completed 02/08/2014 39172 EKG Tracing & Interpretation Completed 02/10/2013 31010 ECHO Transthoracic, Real-Time 2D With Doppler And Color Completed Flow 02/07/2013 52315 EKG Tracing & Interpretation Completed Encounters Type Date Location Provider CPT E/M Dx Office Visit 12/10/2017 [facility] Internal Medicine Nicolasa Garner M.D. 71505 Z79.01 10:50a - [place] I48.2 H91.93 Office Visit 09/15/2017 11:00a [facility] [place] [address] L82.1 D22.5 Office Visit 06/26/2017 11:15a [facility] Cheo Reece, 17238 I48.2 Che Shepherd I25.10 Office Visit 06/18/2017 11:45a [facility], 70026 G30.9 Services Of [facility] Kristofer.Jennie F02.80 Office Visit 04/29/2017 11:50a [facility] Internal Medicine Nicolasa Garner M.D. 07059 I48.0 - [place] Z79.01 G30.9 Office Visit 12/11/2016 11:45a [facility], 39088 G30.9 Services Of [facility] M.DTanika F02.80 Office Visit 12/10/2016 11:15a [facility] Cheo Reece, 27253 I48.0 Che Shepherd I26.99 I25.10 Office Visit 11/28/2016 11:20a [facility] Celio Santamaria M.D. 39788 I48.0 - [place] I26.99 Office Visit 08/26/2016 11:00a [facility] Medicine Celio Santamaria 96213 I26.99 - [place] Shepherd I48.0 R13.10 Z79.01 Office Visit 08/08/2016 10:30a [facility] Cheo Reece, 66126 R94.31 Che Shehperd I25.10 I48.3 I26.99 Office Visit 07/22/2016 12:41p [facility] Meka Canseco, 57304 I26.99 Assoc[facility]ists Cora I48.91 J18.9 F03.90 Office Visit 07/21/2016 12:40p [facility] Meka Canseco, 42935 I26.99 Assoc,pc Hospitalists Cora I48.91 J18.9 F03.90 Office Visit 07/20/2016 12:40p [facility], [place] [address] I26.99 Hospitalists I48.91 J18.9 F03.90 Office Visit 07/19/2016 10:26a [facility] [address] I26.99 Hospitalists I48.91 J18.9 F03.90 Office Visit 07/18/2016 10:25a [facility], [place] [address] I26.99 Hospitalists I48.91 J18.9 F03.90 Office Visit 07/17/2016 10:25a [facility], [place] [address] I26.99 Hospitalists I48.91 J18.9 F03.90 Office Visit 07/16/2016 2:26p [facility], [place] [address] I26.99 Hospitalists I48.91 J18.9 F03.90 Office Visit 07/15/2016 2:26p [facility], [place] [address] I26.99 Hospitalists I48.91 J18.9 F03.90 Office Visit 07/14/2016 2:23p [facility] Meka Canseco, 63741 I26.99 Assoc,pc Hospitalists Cora F03.90 I48.91 J18.9 Office Visit 07/13/2016 2:23p [facility], 98896 I26.99 Assoc,pc Hospitalists N.P. I48.91 F03.90 Office Visit 07/10/2016 12:53p [facility], Tello Becerril, 99498 R55 Hospitalists Cora K92.2 I25.10 G30.1 Office Visit 07/09/2016 12:52p [facility],pc Tello Becerril, 42363 R55 Hospitalists Cora K92.2 G30.1 I25.10 Office Visit 07/08/2016 12:52p [facility], Tello Becerril, 09988 R55 Hospitalists M.D. G30.1 K92.2 I25.10 Office Visit 06/05/2016 10:45a [facility], 59975 G30.9 Services Of Physician President M.D. F02.80 Office Visit 12/06/2015 10:45a [facility], 13674 G30.9 Services Of Physician President M.D. F02.80 I48.92 Office Visit 07/26/2015 10:30a [facility] Vikas Reece, 32708 I25.10 Physician President M.D. I48.0 Office Visit 04/26/2015 11:45a [facility], 40839 331.0 Services Of Physician President M.D. Office Visit 03/14/2015 11:30a [facility] STEPHANIE Kang 68070YXI 427.32 424.1 401.9 427.31 427.89 Office Visit 02/23/2015 9:45a [facility] STEPHANIE Kang 47725 427.32 424.1 Office Visit 02/01/2015 9:00a [facility] Vikas Reece, 73472 414.01 Physician President M.D. 427.32 Office Visit 11/02/2014 11:00a [facility], [id number] 331.0 Services Of Physician President M.D. Office Visit 04/27/2014 12:00p [facility], 14943 331.0 Services Of Physician President M.D. Office Visit 02/08/2014 10:15a [facility] Vikas Reece, 55315 429.9 Physician President M.D. 414.01 Office Visit 10/27/2013 11:45a [facility], 72397 331.0 Services Of Physician President M.D. 294.10 Office Visit 04/22/2013 10:45a [facility], 92341 331.83 Services Of Physician President M.D. Office Visit 03/03/2013 12:15p [facility] [phone] [facility] Kristofer.Jennie Office Visit 02/07/2013 2:45p [facility] Vikas Reece, [id number] 414.9 [facility] [place] 780.4 401.9 Office Visit 10/19/2012 11:30a [facility], 68726 780.93 Services Of Che Shepherd Office Visit 05/12/2012 11:30a [facility], [phone] Services Of [facility] Cora Plan of Care Future Appointment(s):02/26/2018 11:45 am - Kip Lopez M.D. at [facility]03/10/2018 10:50 am - Nicolasa Garner M.D. at [facility] Internal [facility] - [facility]43/20/2018 - Kip Lopez M.D.G30.9 Alzheimer' s disease, unspecifiedFollow up:Follow up in 4 weeks
--- NOTE | 2018-02-10 11:58 | RAD ---
INDICATION: Intracranial injury. Fall. COMPARISON: CT brain January 23, 2013 TECHNIQUE: Noncontrast axial source images were acquired from the skull base to the vertex. FINDINGS: Ventricles/sulci: There is cortical atrophy with compensatory dilatation of the CSF spaces. Brain parenchyma: There is periventricular and subcortical white matter change compatible with chronic ischemia. Intracranial hemorrhage:None. Extra-axial spaces: There are no abnormal extra axial fluid collections or evidence of extra-axial mass. Calvarium: There is no calvarial fracture or other calvarial abnormality. Scalp: There is no evidence of scalp or extracalvarial soft tissue abnormality. Paranasal sinuses/mastoid: The paranasal sinuses and mastoid air cells are clear. Other: None. IMPRESSION: Cortical atrophy with chronic microvascular ischemic change. No acute findings.
[2018-02-10 12:19] LABS: ABS Basophils 0.1 10^3/ul (0-0.2); ABS Eosinophils 0.1 10^3/ul (0-0.6); ABS Monocytes 1.2 10^3/ul (0-0.8); ABS Neutrophils 7.2 10^3/ul (1.5-7.7); ABS Nucleated RBC 0 10^3/ul; Eosinophil % 1.3 % (0-6); Hematocrit 37 % (42-52); Hemoglobin 12.6 g/dl (14.0-18.0); Lymphocyte % 10.6 % (25-47); Mean Corpuscular HGB Conc 34 g/dl (31-36); Mean Corpuscular Hemoglobin 32 pg (27-31); Mean Corpuscular Volume 93 fL (80-94); Mean Platelet Volume 7.5 um3 (7.4-10.4); Nucleated Red Blood Cells % 0; Platelet Count 255 10^3/ul (150-450); Red Blood Count 3.97 10^6/ul (4.0-5.4); Red Cell Distribution Width 15 % (10.5-15); White Blood Count 9.6 10^3/ul (3.5-10.8)
[2018-02-10 12:27] LABS: INR 2.11 (0.77-1.02)
--- NOTE | 2018-02-10 12:27 | RAD ---
INDICATION: Facial trauma. COMPARISON: There are no prior studies available for comparison. TECHNIQUE: Contiguous axial sections of the axial images of the facial bones were obtained and reconstructed in the coronal and sagittal planes. FINDINGS: Soft tissue swelling is noted anterior to the right frontal sinus and frontal bone. The walker of the orbits and maxillary sinuses appear intact. The zygomatic arches appear intact. There is no evidence for a fracture of the mandible. The nasal bones appear intact. There is moderate deviation of the nasal septum toward the right side. The pterygoid plates appear intact. There is mild to moderate mucosal thickening within the maxillary sinuses. The remaining paranasal sinuses and ostiomeatal complexes appear clear. IMPRESSION: NO EVIDENCE OF FRACTURE.
--- NOTE | 2018-02-10 12:37 | RAD ---
INDICATION: Right shoulder injury. TECHNIQUE: 4 views of the right shoulder were obtained. FINDINGS: The bones appear osteopenic. No acute fracture is seen. There appears be an old healed fracture of the clavicle. There is decreased space between the humerus and acromion suspicious for an underlying rotator cuff tear. There is also a small calcification adjacent to the superior lateral aspect of the humeral head. There is moderate osteoarthritic change in the glenohumeral joint. IMPRESSION: 1. NO EVIDENCE FOR ACUTE FRACTURE. 2. OLD HEALED FRACTURE OF THE CLAVICLE. 3. DECREASED ACROMIAL HUMERAL INTERVAL SUGGESTIVE OF UNDERLYING ROTATOR CUFF TEAR.
[2018-02-10 12:42] LABS: EGFR Non-African American 68.2 (>60)
--- NOTE | 2018-02-10 12:45 | RAD ---
INDICATION: Fall COMPARISON: None. TECHNIQUE: Axial source images were acquired with coronal and sagittal reformatting. FINDINGS: On the sagittal view the cervical vertebral bodies are adequately aligned. There is levoconvex curvature in the AP plane. Multilevel degenerative changes include loss of intervertebral disc height, marginal osteophyte formation and subchondral lucencies at the articulating endplates. These degenerative changes are most severe at C4-C6. There is no fracture or focal bony lesion. The canal and foramina appear widely patent. The odontoid and the atlantodental interval are normal. The prevertebral soft tissues appear normal. The visualized soft tissue elements of the neck are normal. There is coarse calcification of the bilateral carotid bulbs. The visualized lung apices are clear. IMPRESSION: MULTILEVEL DEGENERATIVE CHANGES OF THE CERVICAL SPINE WITHOUT DEFINITE FRACTURE OR DISLOCATION.
--- NOTE | 2018-02-10 13:16 | ED ---
Nathalie Brown Julia, scribed for Shawn Alexander MD on 02/10/18 at 1119 . 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 reports he fell onto his right shoulder and right face. Pt c/o left knee pain and right facial, wrist, and shoulder pain. Patient denies bloody nose, dental pain, and neck pain. denies LOC. Medications include Warfarin. reports that she forget to give him his medication last night. She states his INR is typicaly 2.4. PMHx of dementia. - History of Current Complaint Stated Complaint: FALL Time Seen by Provider: 02/10/18 11:08 Hx Obtained From: Patient, Family/Ladle Puller Hx From Patient Unobtainable Due To: Dementia Mechanism of Injury: Fall Loss of Consciousness: no loss of consciousness Onset/Duration: Still Present Onset of Pain: Immediate Location: Head, Extremities Related History: Anticoagulants - Additional Pertinent History Primary Care Physician: [id number] - Allergy/Home Medications Allergies/Adverse Reactions: Allergies Allergy/AdvReac Type Severity Reaction Status Date / Time simvastatin AdvReac See Comment Verified 02/10/18 11:25 Home Medications: Home Medications Diltiazem CD CAP* [Cardizem CD CAP*] 120 mg PO DAILY 02/10/18 [History Confirmed 02/10/18] PMH/Surg Hx/FS Hx/Imm Hx Cardiovascular History: Reports: Hx Coronary Artery Disease, Hx Hypercholesterolemia, Hx Hypertension History: Reports: Hx Benign Prostatic Hyperplasia Musculoskeletal History: Reports: Hx Arthritis, Hx Osteoporosis Sensory History: Reports: Hx Cataracts - BILATERAL, Hx Contacts or Glasses - GLASSES, Hx Hearing Aid, Hx Hearing Problem Opthamlomology History: Reports: Hx Cataracts - BILATERAL, Hx Contacts or Glasses - GLASSES Neurological History: Reports: Hx Dementia, Other Neuro Impairments/Disorders - MILD DEMENTIA, MEMORY LOSS - Surgical History Surgery Procedure, Year, and Place: 1989 ANGIOPLASTY, [facility], [facility]. 1993 SURGERY FOR NEARLY DETATCHED RIGHT RETINA, [facility] Hx Anesthesia Reactions: Yes - CONFUSED AFTER RETINA SURGERY Infectious Disease History: Reports: Hx Hepatitis Denies: Traveled Outside the [place] in Last 30 Days - Family History Known Family History: Negative: Other - negative malignant hypothermia, negative adverse reacton to anesthesia Family History: No FHx anesthesia reaction - Social History Lives: With Family Alcohol Use: Daily Alcohol Amount: wine 1-2 glasses Hx Substance Use: No Substance Use Type: Reports: None Hx Tobacco Use: No Smoking Status (MU): Never Smoked Tobacco Review of Systems Negative: Epistaxis, Dental Pain Positive: Myalgia - R hip, R shoulder, R wrist, L hip Positive: Other - abrasions to right wrist Positive: Headache All Other Systems Reviewed And Are Negative: Yes Physical Exam - Summary Physical Exam Summary: General: well-appearing, no pain distress Skin: warm, color reflects adequate perfusion, dry, Skin tear to dorsum of right wrist, Abrasion of the right third MCP joint, Abrasion right shoulder, Abrasion around R orbit and nose Head: normal Eyes: EOMI, CRIS ENT: normal, no blood in nares Neck: supple, nontender Respiratory: CTA, breath sounds present Cardiovascular: RRR Abdomen: soft, nontender Bowel: present Musculoskeletal: strength/ROM intact, Tender in R shoulder with good ROM, Tender to palpation of left knee Neurological: normal, sensory/motor intact, A&O x3 Psychological: affect/mood appropriate Triage Information Reviewed: Yes Vital Signs On Initial Exam: Initial Vitals Temp Pulse Resp BP Pulse Ox 98 F 61 17 104/59 97 02/10/18 11:12 02/10/18 11:12 02/10/18 11:12 02/10/18 11:12 02/10/18 11:12 Vital Signs Reviewed: Yes Diagnostics - Vital Signs Vital Signs Temp Pulse Resp BP Pulse Ox 02/10/18 11:12 98 F 61 17 104/59 97 - Laboratory Lab Results: Lab Results 02/10/18 02/10/18 02/10/18 Range/Units 12:08 12:08 12:08 WBC 9.6 (3.5-10.8) 10^3/ul RBC 3.97 L (4.0-5.4) 10^6/ul Hgb 12.6 L (14.0-18.0) g/dl Hct 37 L (42-52) % MCV 93 (80-94) fL MCH 32 H (27-31) pg MCHC 34 (31-36) g/dl RDW 15 (10.5-15) % Plt Count 255 (150-450) 10^3/ul MPV 7.5 (7.4-10.4) um3 Neut % (Auto) 74.6 (38-83) % Lymph % (Auto) 10.6 L (25-47) % [place] % (Auto) 12.2 H (0-7) % Eos % (Auto) 1.3 (0-6) % Baso % (Auto) 1.3 (0-2) % Absolute Neuts (auto) 7.2 (1.5-7.7) 10^3/ul Absolute Lymphs (auto) 1.0 (1.0-4.8) 10^3/ul Absolute Monos (auto) 1.2 H (0-0.8) 10^3/ul Absolute Eos (auto) 0.1 (0-0.6) 10^3/ul Absolute Basos (auto) 0.1 (0-0.2) 10^3/ul Absolute Nucleated RBC 0 10^3/ul Nucleated RBC % 0 INR (Anticoag Therapy) 2.11 H (0.77-1.02) APTT 39.5 H (26.0-36.3) seconds Sodium 139 (139-145) mmol/L Potassium 4.2 (3.5-5.0) mmol/L Chloride 109 (101-111) mmol/L Carbon Dioxide 26 (22-32) mmol/L Anion Gap 4 (2-11) mmol/L BUN 20 (6-24) mg/dL Creatinine 1.03 (0.67-1.17) mg/dL Est GFR ( Amer) 87.7 (>60) Est GFR (Non-Af Amer) 68.2 (>60) BUN/Creatinine Ratio 19.4 (8-20) Glucose 93 (70-100) mg/dL Calcium 9.2 (8.6-10.3) mg/dL Total Bilirubin 0.80 (0.2-1.0) mg/dL AST 16 (13-39) U/L ALT 10 (7-52) U/L Alkaline Phosphatase 68 (34-104) U/L Total Protein 7.1 (6.4-8.9) g/dL Albumin 3.7 (3.2-5.2) g/dL Globulin 3.4 (2-4) g/dL Albumin/Globulin Ratio 1.1 (1-3) Result Diagrams: 02/10/18 12:08 02/10/18 12:08 Lab Statement: Any lab studies that have been ordered have been reviewed, and results considered in the medical decision making process. - Radiology R Shoulder XR Radiology Interpretation Completed By: Radiologist - 1. NO EVIDENCE FOR ACUTE FRACTURE. 2. OLD HEALED FRACTURE OF THE CLAVICLE. 3. DECREASED ACROMIAL HUMERAL INTERVAL SUGGESTIVE OF UNDERLYING ROTATOR CUFF TEAR. ED Physician has reviewed this report. - CT Brain CT Interpretation Completed By: Radiologist - Cortical atrophy with chronic microvascular ischemic change. No acute findings. ED Physician has reviewed this report. Maxillofacial CT Interpretation Completed By: Radiologist - NO EVIDENCE OF FRACTURE. ED Physician has reviewed this report. C-Spine CT Interpretation Completed By: Radiologist - MULTILEVEL DEGENERATIVE CHANGES OF THE CERVICAL SPINE WITHOUT DEFINITE FRACTURE OR DISLOCATION. ED Physician has reviewed this report. Re-Evaluation - Re-Evaluation 1 Re-Evaluation Time: 12:26 Change: Unchanged Comment: Pt has abrasion of the left knee with good ROM and no swelling. 2 Re-Evaluation Time: 13:07 Comment: Pt informed of results. Pt will be discharged. Pt and is agreeable with plan. Adult Trauma Course/Dx - Course Course Of Treatment: DISCUSSED RESULTS WITH THE PATIENT AND HIS DAUGHTER. F/U PMD; RETURN IF WORSE. - Diagnoses Provider Diagnoses: Head injury, Facial contusion, Facial abrasion, Contusion of shoulder, right, Knee abrasion Discharge - Sign-Out/Discharge Documenting (check all that apply): Discharge/Admit/Transfer - Discharge Plan Condition: Stable Disposition: HOME Patient Education Materials: Head Injury (ED), Facial Contusion (ED), Abrasion (ED), Shoulder Sprain (ED) Referrals: Nicolasa Garner MD [Primary Care Provider] - Additional Instructions: FOLLOW UP WITH YOUR DOCTOR. RETURN TO THE EMERGENCY DEPARTMENT FOR ANY WORSENING OF YOUR CONDITION OR QUESTIONS OR CONCERNS. - Billing Disposition and Condition Condition: STABLE Disposition: HOME The documentation as recorded by the Nathalie moreno Julia accurately reflects the service I personally performed and the decisions made by me, Shawn Alexander MD.
[2018-02-10 13:35] VITALS: BP 118/66
== END 2018-02-10 13:33 | disposition home or self-care (01) ==
LOC: ED 10:46
DX: S09.90XA Unspecified injury of head, initial encounter (principal); S00.83XA Contusion of other part of head, initial encounter; S40.011A Contusion of right shoulder, initial encounter; S00.81XA Abrasion of other part of head, initial encounter; S80.212A Abrasion, left knee, initial encounter; W10.1XXA Fall (on)(from) sidewalk curb, initial encounter; Y93.9 Activity, unspecified; Y92.480 Sidewalk as the place of occurrence of the external cause; M50.322 Other cervical disc degeneration at C5-C6 level; F03.90 Unspecified dementia, unspecified severity, without behavioral disturbance, psychotic disturbance, mood disturbance, and anxiety; Z79.01 Long term (current) use of anticoagulants; I25.10 Atherosclerotic heart disease of native coronary artery without angina pectoris; I10 Essential (primary) hypertension; E78.00 Pure hypercholesterolemia, unspecified; N40.0 Benign prostatic hyperplasia without lower urinary tract symptoms; Z88.8 Allergy status to other drugs, medicaments and biological substances
CPT/HCPCS: 36415; 70450; 70486; 72125; 80053; 85025; 85610; 85730; 99283

== ENCOUNTER 2018-07-04 17:38 | Emergency (ER) | payer MEDICARE ==
--- OUTSIDE RECORDS SUMMARY | 2018-07-04 17:58 | XMS REPORT ---
:1930 External Reference #:[id number] Author Organization [facility] Address [address] [address] [place] [address] Phone [phone] Care Team Providers Name Role Phone Nicolasa Garner MD Primary Care Physician Unavailable Payers Type Date Identification Numbers Payment Provider Subscriber Medicare Primary Effective: Policy Number: Medicare Ryder Vizcaino 1955 [id number] PayID: [id number] [address] [place] [address] [facility] Policy Number: [id number] [facility] Ryder Vizcaino PayID: [id number] [address] [place] [address] Advance Directives Type Date Description Status Comment [...] long acting cardizem during hospital stay at [facility] 07/2016 Onset: 08/26/2016 Dementia Celio Santamaria M.D. Active Onset: 07/13/2016 Deep venous thrombosis of lower Celio Santamaria M.D. 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 Smoking Patient is a former smoker quit smoking cigarettes whe he was in his 40's Recreational Drug Use Denies Drug Use Daily Caffeine Consumes on average 1 cup of decaffeinated hot tea per day Exercise Type/Frequency Does not exercise Allergies, Adverse Reactions, Alerts Date Description Reaction Status Severity Comments 02/08/2014 Simvastatin cognitive impairment active per patients 10/19/2012 NKDA inactive Medications Medication Date Status Form Strength Qnty SIG Indications Ordering Provider Digoxin 08/14/ Active Tablets 125mcg 45tabs 1/2 tab Z79.01 Vikas Schneider 2015 by amee Reece M.D. every day Aricept 04/22/ Active Tablets 10mg 60tabs take two [place] 2013 analy Lopez M.D. every day Vitamin B-12 / Active Tablets 500mcg 1 by Unknown 0000 Sub mouth three times a week Warfarin / Active Tablets 1mg 90tabs daily as I26.99 Brett E. Sodium 0000 directed Cora Ferrer Latanoprost / Active Solution 0.005% 1 gtt to Unknown 0000 bothe eyes daily Diltiazem CD / Active Caps ER 120mg 90caps 1 by Nicolasa 0000 24HR amee Garner M.D. every day Xarelto 02/01/ Hx Tablets 20mg 90tabs 1 by 427.32 Vikas Schneider 2014 - amee Reece M.D. 11/20/ day 2015 Aricept 10/19/ Hx Tablets 10mg 60tabs 2 tab by Lisa Christensen 2012 - mouth Be, 04/22/ every day M.DTanika 2012 Aricept / Hx Tablets 23mg 30tabs 1 tab po Lisa Christensen 0000 - qhs Be, 04/22/ M.DTanika 2012 Aspirin / Hx Tablets 81mg 1 po qd Unknown 0000 - 2015 Vitamin /00/ Hx Tablets 1 po qd Unknown B-Complex 0000 - 2014 Diltiazem HCL 00/00/ Hx Caps ER 120mg 90caps 1 po qd Unknown 0000 - 24HR 2015 Doxazosin 00/00/ Hx Tablets 4mg 30tabs 1 po qd Unknown Mesylate - 2015 Lisinopril /00/ Hx Tablets 20mg 90tabs 1 po qd Unknown - 2014 Simvastatin /00/ Hx Tablets 20mg 90tabs 1 po qhs Unknown - 2013 Vitamin D-3 /00/ Hx Tablets 400Unit 1 po qd Unknown 2013 Glutamine /00/ Hx Capsules 500mg Unknown 2013 Ginkoba 00/ Hx Tablets 40mg qod Unknown 2013 Fish Oil / Hx Capsules 600mg 90caps 1 po qd Unknown 2014 Vitamin D3 /00/ Hx Capsules 400Unit 1 cap po Unknown 0000 - daily 2014 Mirtazapine 00/ Hx Tablets 7.5mg 30tabs pt not Unknown 0000 - using it . 2016 Diltiazem HCL 0000/ Hx Tablets 30mg 1 by Z79.01 Unknown 0000 - mouth 11/12/ four 2017 times a day Digoxin 00/00/ Hx Tablets 0.125mg 1/2 by Unknown 0000 - mouth 08/14/ every day 2015 Magnesium /00/ Hx Capsules 125mg 1 caps a Unknown Citrate 0000 - couple 01/28/ times a 2018 week Vitamin D3 00/00/ Hx Capsules 500U 1 by Unknown Super Strength 0000 - mouth 2-3 times 2017 a week Levofloxacin 00/ Hx Tablets 750mg Take One Unknown 0000 - Tablet By 02/25/ Mouth 2018 Every Day ends 02/03/18 Immunizations CPT Code Status Date Vaccine Lot # [id number] Given 09/07/2017 Influenza Virus Vaccine, Quadrivalent, Split, [id number] Preservative Free [id number] Given 09/09/2016 Pneumonia Vaccine [id number] Vital Signs Date Vital Result Comment 07/02/2018 Height 66 inches 5'6" Weight 147.00 lb Heart Rate 74 /min BP Systolic Sitting 110 mmHg BP Diastolic Sitting 68 mmHg BP Systolic Standing 106 mmHg BP Diastolic Standing 68 mmHg BMI (Body Mass Index) 23.7 kg/m2 02/26/2018 Height 66 inches 5'6" Weight 148.38 lb Heart Rate 108 /min BP Systolic 110 mmHg BP Diastolic 68 mmHg Respiratory Rate 16 /min BMI (Body Mass Index) 23.9 kg/m2 01/29/2018 Height 66 inches 5'6" Weight 148.00 [...] Test Date Test Result H/L Range Note Protime W/ Inr 06/15/2018 Prothrombin Time 29.7 Inr 2.5 Protime W/ Inr 06/03/2018 Prothrombin Time 23.6 Inr 2.0 Protime W/ Inr 05/06/2018 Prothrombin Time 27.3 Inr 2.3 Protime W/ Inr 04/22/2018 Prothrombin Time 29.4 Inr 2.4 Protime W/ Inr 04/08/2018 Prothrombin Time 34.1 Inr 2.8 Protime W/ Inr 04/01/2018 Prothrombin Time 36.1 Inr 3.0 Protime W/ Inr 03/11/2018 Prothrombin Time 30 Inr 2.5 Protime W/ Inr 03/04/2018 Prothrombin Time 31.0 Inr 2.6 Protime W/ Inr 03/01/2018 Prothrombin Time 29.6 Inr 2.5 Protime W/ Inr 02/24/2018 Prothrombin Time 50.8 Inr 4.2 Comp Metabolic Panel 02/10/2018 Sodium 139 mmol/L 139-145 Potassium 4.2 mmol/L 3.5-5.0 Chloride 109 mmol/L 101-111 Co2 Carbon Dioxide 26 mmol/L 22-32 Anion Gap 4 mmol/L 2-11 Glucose 93 mg/dL 70-100 Blood Urea Nitrogen 20 mg/dL 6-24 Creatinine 1.03 mg/dL 0.67-1.17 BUN/Creatinine Ratio 19.4 8-20 Calcium 9.2 mg/dL 8.6-10.3 Total Protein 7.1 g/dL 6.4-8.9 Albumin 3.7 g/dL 3.2-5.2 Globulin 3.4 g/dL 2-4 Albumin/Globulin Ratio 1.1 1-3 Total Bilirubin 0.80 mg/dL 0.2-1.0 Alkaline Phosphatase 68 U/L 34-104 Alt 10 U/L 7-52 Ast 16 U/L 13-39 Egfr Non- 68.2 >60 Egfr 87.7 >60 1 CBC Auto Diff 02/10/2018 White Blood Count 9.6 10^3/uL 3.5-10.8 Red Blood Count 3.97 10^6/uL Low 4.0-5.4 Hemoglobin 12.6 g/dL Low 14.0-18.0 Hematocrit 37 % Low 42-52 Mean Corpuscular Volume 93 fL 80-94 Mean Corpuscular Hemoglobin 32 pg High 27-31 Mean Corpuscular HGB Conc 34 g/dL 31-36 Red Cell Distribution Width 15 % 10.5-15 Platelet Count 255 10^3/uL 150-450 Mean Platelet Volume 7.5 um3 7.4-10.4 Abs Neutrophils 7.2 10^3/uL 1.5-7.7 Abs Lymphocytes 1.0 10^3/uL 1.0-4.8 Abs Monocytes 1.2 10^3/uL High 0-0.8 Abs Eosinophils 0.1 10^3/uL 0-0.6 Abs Basophils 0.1 10^3/uL 0-0.2 Abs Nucleated RBC 0 10^3/uL Granulocyte % 74.6 % 38-83 Lymphocyte % 10.6 % Low 25-47 Monocyte % 12.2 % High 0-7 Eosinophil % 1.3 % 0-6 Basophil % 1.3 % 0-2 Nucleated Red Blood Cells % 0 Inr/Protime 02/10/2018 Inr 2.11 High 0.77-1.02 Laboratory test finding 02/10/2018 Partial Thrombo 39.5 seconds High 26.0- 36.3 Time PTT Inr/Protime 02/01/2018 Inr 4.42 High 0.77-1.02 Urine Culture And 01/25/2018 Urine Culture SEE RESULT BELOW 2 Sensitivities CBC Auto Diff 01/25/2018 White Blood Count [...] Egfr Non- 66.7 >60 Egfr 85.7 >60 3 Laboratory test finding 01/25/2018 C Reactive Protein 86.94 mg/L High < 5.00 4 Digoxin 0.6 ng/ml Low 0.8-2.0 Urinalysis Profile 01/25/2018 Urine Color Yellow Urine Appearance Cloudy Urine Specific Hershey 1.023 1.010-1.030 Urine pH 6.0 5-9 Urine Urobilinogen Negative Negative Urine Ketones Negative Negative Urine Protein 1+(30 mg/dL) Negative Urine Leukocytes Trace Negative Urine Blood 1+ Negative Urine Nitrite Negative Negative Urine Bilirubin Negative Negative Urine Glucose Negative Negative Urine White Blood Cell 2+(11-20/hpf) Absent Urine Red Blood Cell 3+(>10/hpf) Absent Urine Bacteria Absent Absent Urine Hyaline Casts Present Absent Protime W/ Inr 01/07/2018 Prothrombin Time 26.8 [...] Lipid Profile (Trig/Chol/HDL) 08/28/2017 Triglycerides 100 mg/dL 5 Cholesterol 220 mg/dL 6 HDL Cholesterol 58.7 mg/dL 7 LDL Cholesterol 141 mg/dL 8 Comp Metabolic Panel 08/28/2017 Sodium 139 mmol/L [...] Egfr Non- 75.0 >60 Egfr 96.4 >60 9 CBC Auto Diff 08/28/2017 White Blood Count [...] Egfr Non- 74.1 >60 Egfr 95.3 >60 10 Protime W/ Inr 04/29/2017 Prothrombin Time 24.9 [...] 5 Kidney failure <15 (or dialysis) 2 SEE RESULT BELOW Name: RYDER VIZCAINO : [address]: Thor Fishman MD Acct: [id number] Unit: [id number] AGE: 87 Location: ED Re01/25/18 SEX: M Status: DEP ER SPEC: [id number] [place]: 01/25/18-0 [facility] [address]: Thor Fishman MD REQ: [id number] RECD: 01/25/18 STATUS: IKER RIVERA DR: Nicolasa Garner MD _ SOURCE: URINE SPDESC: ORDERED: Urine Culture Procedure Result Reported Site Urine Culture Final 01/26/18- 1253 ML No growth of clinically significant organisms * ML - Main Lab . END OF REPORT DEPARTMENT OF PATHOLOGY, [address] [place] [address] Jayesh Dinero M.D. Director [facility] # [id number] 3 Because ethnic data is not always readily [...] 15-29 5 Kidney failure <15 (or dialysis) 4 Acute inflammation: >10.00 5 Desirable: <150 Borderline High: 150-199 High: 200-499 Very High: >500 6 Desirable: <200 Borderline High: 200-239 High: >239 7 Low: <40 Desirable: 40-60 High: >60 8 Desirable: <100 Near Optimal: 100-129 Borderline High: 130-159 High: 160-189 Very High: >189 9 Because ethnic data is not always [...] 15-29 5 Kidney failure <15 (or dialysis) 10 Because ethnic data is not always readily [...] dialysis) Procedures Date CPT Code Description Status 07/02/2018 48177 EKG Tracing & Interpretation Completed 01/06/2017 83838 Holter Monitor Review (24 hr)dr syed & patriciap only Completed 12/30/2016 12809 ECG Monitor/Recording W/Visual Superimposition Scanning Completed 12/10/2016 13818 EKG Tracing & Interpretation Completed 08/08/2016 36859 EKG Tracing & Interpretation Completed 07/14/2016 10882 ECHO Transthorasic Realtime 2D W Doppler & Color Flow Completed Hosp 07/13/2016 26439 EKG, Interpretation Only Completed 07/10/2016 48952 EKG, Interpretation Only Completed 06/12/2016 Colonoscopy Completed 07/26/2015 34138 EKG Tracing & Interpretation Completed 03/14/2015 39456 EKG Tracing & Interpretation Completed 02/23/2015 51715 EKG Tracing & Interpretation Completed 02/09/2015 13151 Holter Monitoring 24 HR New Completed 02/08/2015 47006 ECHO Transthoracic, Real-Time 2D With Doppler And Color Completed Flow 02/01/2015 75786 EKG Tracing & Interpretation Completed 02/08/2014 49764 EKG Tracing & Interpretation Completed 02/10/2013 70587 ECHO Transthoracic, Real-Time 2D With Doppler And Color Completed Flow 02/07/2013 30534 EKG Tracing & Interpretation Completed Encounters Type Date Location Provider CPT E/M Dx Office Visit 07/02/2018 [facility] Cheo Reece M.D. 63646 I48.2 11:45a [facility] Office Visit 02/26/2018 [facility] Kip Lopez M.D. 61939 G30.9 11:45a [facility] Office Visit 01/29/2018 [facility] Kip Lopez M.D. 84827 G30.9 11:15a [facility] R79.82 Office Visit 12/10/2017 10:50a [facility] Internal Medicine Nicolasa Garner 55627 Z79.01 - Zain Shepherd I48.2 H91.93 Office Visit 09/15/2017 11:00a [facility] [place] [address] L82.1 D22.5 Office Visit 06/26/2017 11:15a [facility] Vikas Reece 12909 I48.2 Che Shepherd I25.10 Office Visit 06/18/2017 11:45a [facility] [place] [address]76 G30.9 [facility] Cora F02.80 Office Visit 04/29/2017 11:50a [facility] Internal Medicine Nicolasa Garner M.D. 28123 I48.0 - [place] Z79.01 G30.9 Office Visit 12/11/2016 11:45a [facility] [place] [address] G30.9 [facility] Cora F02.80 Office Visit 12/10/2016 11:15a [facility] Cheo Reece 86933 I48.0 Che Shepherd I26.99 I25.10 Office Visit 11/28/2016 11:20a [facility] Internal Medicine Celio Santamaria M.D. 59609 I48.0 - [place] I26.99 Office Visit 08/26/2016 11:00a [facility] Internal Medicine Celio Santamaria 50982 I26.99 Renetta Pittman M.D. I48.0 R13.10 Z79.01 Office Visit 08/08/2016 10:30a [facility] Of Vikasisrael Reece, 44627 R94.31 Che Shepherd I25.10 I48.3 I26.99 Office Visit 07/22/2016 12:41p [facility] Meka Montanohn, 73307 I26.99 [facility] Cora I48.91 J18.9 F03.90 Office Visit 07/21/2016 12:40p [facility] Meka Montanohn, 22356 I26.99 [facility] Cora I48.91 J18.9 F03.90 Office Visit 07/20/2016 12:40p [facility] [address] I26.99 Hospitalists I48.91 J18.9 F03.90 Office Visit 07/19/2016 10:26a [facility] [place] [address] I26.99 Hospitalists I48.91 J18.9 F03.90 Office Visit 07/18/2016 10:25a [facility] [place] [address] I26.99 Hospitalists I48.91 J18.9 F03.90 Office Visit 07/17/2016 10:25a [facility] [place] [address] I26.99 Hospitalists I48.91 J18.9 F03.90 Office Visit 07/16/2016 2:26p [facility] [place] [address] I26.99 Hospitalists I48.91 J18.9 F03.90 Office Visit 07/15/2016 2:26p [facility] [place] [address] I26.99 Hospitalists I48.91 J18.9 F03.90 Office Visit 07/14/2016 2:23p [facility] Meka Montanohn, 83264 I26.99 [facility] Cora F03.90 I48.91 J18.9 Office Visit 07/13/2016 2:23p [facility], 17590 I26.99 Assoc[facility] Hospitalists N.P. I48.91 F03.90 Office Visit 07/10/2016 12:53p [facility] Tello Becerril, 88864 R55 Hospitalists M.D. K92.2 I25.10 G30.1 Office Visit 07/09/2016 12:52p [facility] Tello Becerril, 37503 R55 Hospitalists M.D. K92.2 G30.1 I25.10 Office Visit 07/08/2016 12:52p [facility] Tello Becerril, 65078 R55 Hospitalists M.D. G30.1 K92.2 I25.10 Office Visit 06/05/2016 10:45a [facility], 50333 G30.9 Services Of Production Line Manager M.D. F02.80 Office Visit 12/06/2015 10:45a [facility], 90776 G30.9 Services Of Production Line Manager M.D. F02.80 I48.92 Office Visit 07/26/2015 10:30a [facility] Of Vikas Reece, 80987 I25.10 Production Line Manager M.D. I48.0 Office Visit 04/26/2015 11:45a [facility], 19138 331.0 Services Of Production Line Manager M.D. Office Visit 03/14/2015 11:30a [facility] STEPHANIE Kang 02671WWW 427.32 424.1 401.9 427.31 427.89 Office Visit 02/23/2015 9:45a [facility] STEPHANIE Kang 00364 427.32 424.1 Office Visit 02/01/2015 9:00a [facility] Of Vikas Reece 95785 414.01 Production Line Manager M.D. 427.32 Office Visit 11/02/2014 11:00a [facility] [place] [address]781 331.0 Services Of Production Line Manager M.D. Office Visit 04/27/2014 12:00p [facility] [place] 44529 331.0 Services Of Production Line Manager M.D. Office Visit 02/08/2014 10:15a [facility] Vikas Reece, 29032 429.9 [facility] M.Jennie 414.01 Office Visit 10/27/2013 11:45a [facility], 59780 331.0 Services Of Che Miner.Jennie 294.10 Office Visit 04/22/2013 10:45a [facility], 36891 331.83 Services Of Production Line Manager M.DTanika Office Visit 03/03/2013 12:15p [facility] Vikas Reece, 78846 414.9 [facility] M.DTanika Office Visit 02/07/2013 2:45p [facility] Vikas Reece, 65622 414.9 Production Line Manager AT [facility] MLaurent 780.4 401.9 Office Visit 10/19/2012 11:30a [facility], 61685 780.93 Services Of Che MLaurent Office Visit 05/12/2012 11:30a [facility], 59904 780.93 Services Of Production Line Manager M.Jennie Plan of Care Future Appointment(s):08/30/2018 11:00 am - Kip Lopez M.D. at [facility]07/02/2018 - Vikas Reece M.D.I48.2 Chronic atrial fibrillationFollow up:1 year
--- OUTSIDE RECORDS SUMMARY | 2018-07-04 17:59 | XMS REPORT | Continuity of Care Document ---
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 Unavailable Nicolasa Garner MD Primary Care Physician Unavailable Payers Type Date Identification Numbers Payment Provider Subscriber Policy Number: [id number] Medicare Israel Vizcaino PayID: [id number] [address] [place] [address] Policy Number: [id number] [facility] [place] Vizcaino PayID: [id number] [address] [place] [address] Advance Directives Description No Information Available Problems Description No Information Family History Date Family Member(s) Problem(s) Comments Father due to Heart Disease () Father 50 Mother due to Unknown Causes () Social History Type Date Description Comments Sex Unknown Tobacco Use Start: Unknown End: Unknown Former Cigarette Smoker ETOH Use Rare Use Of Alcohol Recreational Drug Use Never Used Drugs Allergies, Adverse Reactions, Alerts Description No Known Drug Allergies Medications Medication Date Status Form Strength Qnty SIG Indications Ordering Provider Simvastatin Active Tablets 1 by Unknown 000 mouth every day Doxazosin Active Tablets Unknown Mesylate 000 Aspir-[address] 81mg 1 by Unknown 000 mouth every day Donepezil HCL Active Tablets Unknown 000 Ginkgo Biloba Active Capsules Unknown 000 Vitamin B 0 Active Tablets Unknown Complex 000 Lisinopril 0 Active Tablets 1 by Unknown 000 mouth every day Vitamin D3 000 Active Capsules Unknown 000 Glutamine 0 Active Capsules Unknown 000 Fish Oil 0 Active Capsules Unknown 000 Cartia XT Active Caps ER 1 tab by Unknown 000 24HR mouth every day day Glucosamine 0 Active Capsules Unknown Chondroitin 000 Lutein 00/00/0 Active Capsules Unknown 000 Aleve Active Capsules 220mg 1 by Unknown 000 mouth twice a day as needed Immunizations Description No Information Available Vital Signs Date Vital Result Comment 06/11/2018 1:17pm Weight 159.00 lb Height 71 inches 5'11" BMI (Body Mass Index) 22.2 kg/m2 BP Systolic 129 mmHg BP Diastolic 71 mmHg Heart Rate 46 /min O2 % BldC Oximetry 98 % Body Temperature 98.0 F Pain Level 0 Results Description No Information Available Procedures Description No Information Available Encounters Description No Information Available Plan of Treatment No Information Available
--- OUTSIDE RECORDS SUMMARY | 2018-07-04 17:59 | XMS REPORT | Continuity of Care Document ---
:1930 External Reference #:[id number] Author Name Lisa Whittaker Care Team Providers Name Role Phone Nicolasa Garner MD Care Team Information Car Designer Unavailable Nicolasa Garner MD Primary Care Physician Unavailable Payers Type Date Identification Numbers Payment Provider Subscriber Policy Number: [id number] Medicare [place] Vizcaino PayID: [id number] [address] [place] [address] Policy Number: [id number] [facility] [place] Vizcaino PayID: [id number] [address] [place] [address] Advance Directives Description No Information Available Problems Description No Information Family History Date Family Member(s) Problem(s) Comments Father due to Heart Disease () Father 50 Mother due to Unknown Causes () Mother 70 First Brother due to Unknown Causes () First Brother 82 First Sister due to Alzheimer's Disease () Second Sister due to Brain Tumor () Social History Type Date Description Comments Sex Unknown Tobacco Use Start: Unknown End: Unknown Former Cigarette Smoker ETOH Use Rare Use Of Alcohol Recreational Drug Use Never Used Drugs Allergies, Adverse Reactions, Alerts Description No Known Drug Allergies Medications Medication Date Status Form Strength Qnty SIG Indications Ordering Provider Warfarin 0 Active Tablets Unknown Sodium 000 Donepezil HCL 0 Active Tablets Unknown 000 Diltiazem HCL Active Unknown 000 Digoxin 0 Active Tablets Unknown 000 Latanoprost 0 Active Solution Unknown 000 B12 0 Active Unknown 000 Simvastatin /0 Hx Tablets 1 by Unknown 000 - mouth every day 018 Doxazosin /0 Hx Tablets Unknown Mesylate 000 - 018 Aspir-[address] 81mg 1 by Unknown 000 - mouth every day 018 Donepezil HCL 0 Hx Tablets Unknown 000 - 018 Ginkgo Biloba 0 Hx Capsules Unknown 000 - 018 Vitamin B 0 Hx Tablets Unknown Complex 000 - 018 Lisinopril 0 Hx Tablets 1 by Unknown 000 - mouth every day 018 Vitamin D3 0 Hx Capsules Unknown 000 - 018 Glutamine 0 Hx Capsules Unknown 000 - 018 Fish Oil Hx Capsules Unknown 000 - 018 Cartia XT Hx Caps ER 1 tab by Unknown 000 - 24HR mouth every day 018 day Glucosamine 0 Hx Capsules Unknown Chondroitin 000 - 018 Lutein 0 Hx Capsules Unknown 000 - 018 Aleve Hx Capsules 220mg 1 by Unknown 000 - mouth twice a 018 day as needed Immunizations Description No Information Available Vital Signs Date Vital Result Comment 06/11/2018 1:17pm Weight 159.00 lb Height 71 inches 5'11" BMI (Body Mass Index) 22.2 kg/m2 BP Systolic 129 mmHg BP Diastolic 71 mmHg Heart Rate 46 /min O2 % BldC Oximetry 98 % Body Temperature 98.0 F Pain Level 0 Results Description No Information Available Procedures Date Code Description Status 06/11/2018 15088 Audiometry, Comprehensive Completed Encounters Type Date Location Provider Dx Diagnosis Office Visit 06/11/2018 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 at [facility]
[2018-07-04] MEDS ORDERED: NS 0.9% 1000 ML* 1,000 ML IV ONE (19:10)
--- NOTE | 2018-07-04 19:17 | ED ---
Abdominal Pain/Male - HPI Summary HPI Summary: A 87 y/o male presents to ED c/o back pain and abdominal pain. In the ED room, the patient has a pulse of 98 BPM, O2 saturation of 98% and blood pressure of 158/92. As per triage, "Pt here with his . Hx of dementia. states pt has scoliosis with c/o back pain and pain around the middle and "unusually compliant"> pt also complaining to of dry mouth. Low grade temp and flushing in face. Pt told he felt "lost" Unsure of urinary patterns at this time per . Pt has not taken warfarin yet tonight". As per , the patient first started c/o back pain, as patient has scoliosos around midnight las tnight. He was very uncomfortable all night. Additionally, his mouth was sticky. She thought it could possibly be dehydration, however, soon after, he started c/o pain around his waist area. She is not sure if it his back or abdomen. In patient did not eat much in the afternoon. When they got home, the patient went to the bathroom, but when he walked out, he was looking around the room in which he said he was getting lost. This was coupled with flushing of his face. She noted that when he goes to the bathroom, which is frequently, he can't remember what is going on. As per patient, he has no pain, "just lumps". LEVEL 5 CAVEAT - REPORTS PATIENT'S SYMPTOMS AND CONCERNS. - History of Current Complaint Chief Complaint: EDFlankPain Stated Complaint: BACK PAIN/CONFUSION Time Seen by Provider: 07/04/18 18:52 Hx Obtained From: Patient Onset/Duration: Lasting Hours Severity Currently: None Pain Intensity: 0 Pain Scale Used: 0-10 Numeric Location: Other - AROUND WAIST AREA Radiates to: Back Aggravating Factor(s): Nothing Alleviating Factor(s): Nothing Associated Signs And Symptoms: Positive: Negative - Allergies/Home Medications Allergies/Adverse Reactions: Allergies Allergy/AdvReac Type Severity Reaction Status Date / Time simvastatin AdvReac See Comment Verified 02/10/18 11:25 PMH/Surg Hx/FS Hx/Imm Hx Cardiovascular History: Reports: Hx Coronary Artery Disease, Hx Hypercholesterolemia, Hx Hypertension History: Reports: Hx Benign Prostatic Hyperplasia Musculoskeletal History: Reports: Hx Arthritis, Hx Osteoporosis Sensory History: Reports: Hx Cataracts - BILATERAL, Hx Contacts or Glasses - GLASSES, Hx Hearing Aid, Hx Hearing Problem Opthamlomology History: Reports: Hx Cataracts - BILATERAL, Hx Contacts or Glasses - GLASSES Neurological History: Reports: Hx Dementia, Other Neuro Impairments/Disorders - MILD DEMENTIA, MEMORY LOSS - Surgical History Surgery Procedure, Year, and Place: 1989 ANGIOPLASTY, [facility]. 1993 SURGERY FOR NEARLY DETATCHED RIGHT RETINA, [facility] Hx Anesthesia Reactions: Yes - CONFUSED AFTER RETINA SURGERY Infectious Disease History: No Infectious Disease History: Reports: Hx Hepatitis Denies: Traveled Outside the [place] in Last 30 Days - Family History Known Family History: Negative: Other - negative malignant hypothermia, negative adverse reacton to anesthesia Family History: No FHx anesthesia reaction - Social History Alcohol Use: Daily Alcohol Amount: wine 1-2 glasses Hx Substance Use: No Substance Use Type: Reports: None Hx Tobacco Use: No Smoking Status (MU): Never Smoked Tobacco Review of Systems Positive: Fever, Other - POSITIVE: FLUSHED Positive: Abdominal Pain Positive: Other - POSITIVE: BACK PAIN All Other Systems Reviewed And Are Negative: Yes Physical Exam - Summary Physical Exam Summary: VITAL SIGNS: Reviewed. GENERAL: Patient is a well-developed and nourished male who is lying comfortable in the stretcher. Patient is not in any acute respiratory distress. Patient is alert and oriented x3. HEAD AND FACE: Normocephalic and atraumatic. EYES: PERRLA, EOMI x 2, No injected conjunctiva. EARS: Hearing grossly intact. Ear canals and tympanic membranes are WNL. MOUTH: Oropharynx within normal limits. NECK: Supple, trachea is midline, no adenopathy, no JVD. CHEST: Symmetric, no tenderness at palpation LUNGS: Clear to auscultation bilaterally. No wheezing or crackles. CVS: RRR, S1 and S2 present, no murmurs or gallops appreciated. ABDOMEN: Soft, non-tender. No signs of distention. Positive bowel sounds. No rebound no guarding, and no masses palpated. No abdominal bruit or pulsations. EXTREMITIES: FROM in all major joints, no edema, no cyanosis or clubbing. NEURO: Alert and oriented x 3. No acute neurological deficits. Speech is normal. SKIN: Dry and warm. Patient's skin is warm to touch. LEVEL 5 CAVEAT. REPORTS PATIENTS SYMPTOMS AND CONCERNS. Triage Information Reviewed: Yes Vital Signs On Initial Exam: Initial Vitals Temp Pulse Resp BP Pulse Ox 99.5 F 100 18 145/75 100 07/04/18 17:50 07/04/18 17:50 07/04/18 17:50 07/04/18 17:50 07/04/18 17:50 Vital Signs Reviewed: Yes Diagnostics - Vital Signs Vital Signs Temp Pulse Resp BP Pulse Ox 07/04/18 19:10 98 F 07/04/18 17:50 99.5 F 100 18 145/75 100 - Laboratory Result Diagrams: 07/04/18 20:07 07/04/18 20:07 Lab Statement: Any lab studies that have been ordered have been reviewed, and results considered in the medical decision making process. - CT CT A/P CT Interpretation Completed By: Radiologist - 1. Mild bibasilar fibro- atelectatic change which is decreased since 07/13/2016 with resolution of trace left pleural effusion. 2. Large left UVJ calculus measuring 5 x 6 x 8 mm with secondary obstructive uropathy of the left upper tract. 3. Nonobstructing left renal calculi. 4. 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 5. Mild prostatic enlargement. 6. Colonic diverticulosis without diverticulitis. ED PHYSICIAN REVIEWED THIS RADIOLOGY REPORT. Abdominal Pain Fem Course/Dx - Course Assessment/Plan: This patient is an 87-year-old male who presents to the senior care with bilateral flank pain. The patient is demented so therefore he is unable to give a good history. The history was obtained by the , who suspects the patient started having flank pain and he thinks he has a urinary tract infection. She reports that he frequently goes to the bathroom and that he is gets confused. Additionally, patient possibly has a fever. Patient has past medical history significant for syncope, rectal bleeding, dementia, PE, ischemic colitis, dysphagia. Abdominal and Pelvic CT Impression: Large UVJ calculus measuring 5x6x8 mm with secondary obstructive uropathy of the left tract . Nonobstructing left renal calculi. Mild prostatic enlargement. Colonic diverticulosis w/o diverticulitis. Blood work shows a wbc's of 16.3, hemoglobin 13.7 hematocrit 40, platelet is 235. Creatinine is 1.19, lactic acid is 2.5 and CRP of 14.7. Urinalysis shows 1+ protein 2+ blood 1+ leukocytes as well as blood cells to close red blood cells and positive squamous epithelial cells. The patient doesn't have any fever in the ER however , he seems that he has a UTI. He was given Rocephin 1 gram,. [facility] does not have a urology consult therefore hospitalist requested for the patient to be transferred to a hospital with urology services. Patients agrees. Patient continues to be hemodynamically stable alert and oriented. He is at his baseline. - Diagnoses Provider Diagnoses: Possible urinary tract infection, Renal calculi - Provider Notifications Discussed Care Of Patient With: Denis Avery Time Discussed With Above Provider: 21:34 Instructed by Provider To: Other - Accepts patient for admission Discharge - Sign-Out/Discharge Documenting (check all that apply): Patient Departure - TRANSFER - Discharge Plan Condition: Stable Disposition: TRANS HIGHER LVL OF CARE FAC Referrals: Nicolasa Garner MD [Primary Care Provider] - - Billing Disposition and Condition Condition: STABLE Disposition: Trans Higher Lvl of Care Fac - Attestation Statements Document Initiated by Scribe: Yes Documenting Scribe: Deric Gerardo Provider For Whom Scribe is Documenting (Include Credential): Brett Booker MD Scribe Attestation: Deric Brown, scribed for Brett Booker MD on 07/04/18 at 2225. Scribe Documentation Reviewed: Yes Provider Attestation: The documentation as recorded by the Deric moreno accurately reflects the service I personally performed and the decisions made by me, Brett Booker MD
[2018-07-04 19:56] LABS: Urine Appearance Clear; Urine Blood 2+ (Negative); Urine Color Yellow; Urine Ketones Negative (Negative); Urine Protein 1+(30 mg/dL) (Negative); Urine Red Blood Cell 3+(>10/hpf) (Absent); Urine Specific Gravity 1.019 (1.010-1.030); Urine Urobilinogen Negative (Negative); Urine White Blood Cell 3+(>20/hpf) (Absent)
[2018-07-04 20:14] LABS: Hematocrit 40 % (42-52); Hemoglobin 13.7 g/dl (14.0-18.0); Mean Corpuscular HGB Conc 34 g/dl (31-36); Mean Corpuscular Hemoglobin 31 pg (27-31); Mean Corpuscular Volume 92 fL (80-94); Mean Platelet Volume 7.4 um3 (7.4-10.4); Platelet Count 235 10^3/ul (150-450); Red Blood Count 4.37 10^6/ul (4.00-5.40); Red Cell Distribution Width 15 % (10.5-15); White Blood Count 16.3 10^3/ul (3.5-10.8)
[2018-07-04 20:22] LABS: INR 2.3 (0.77-1.02)
[2018-07-04 20:32] LABS: EGFR Non-African American 57.7 (>60)
[2018-07-04] MEDS ORDERED: cefTRIAXone(*) 1 GM in NS 0.9% 50 ML* 50 ML IVPB ONE (20:54)
--- NOTE | 2018-07-04 20:55 | RAD ---
EXAM: CT Abdomen and Pelvis Without Intravenous Contrast EXAM DATE/TIME: Exam ordered 07/04/2018 7:39 PM CLINICAL HISTORY: 87 years old, male; Pain; Abdominal pain; Flank; Other: Bilateral; Additional info: Flank pain TECHNIQUE: Axial computed tomography images of the abdomen and pelvis without intravenous contrast. All CT scans at this facility use at least one of these dose optimization techniques: automated exposure control; mA and/or kV adjustment per patient size (includes targeted exams where dose is matched to clinical indication); or iterative reconstruction. Coronal and sagittal reformatted images were created and reviewed. COMPARISON: A/P WO CT ABD/PEL W/O 07/13/2016 4:53 PM FINDINGS: Lung bases: Mild bibasilar fibro-atelectatic change, greatest in the lower lobes. Heart: Coronary artery calcifications are present. ABDOMEN: Liver: Unremarkable. Gallbladder and bile ducts: The gallbladder is contracted with no stones. No ductal dilation. Pancreas: Unremarkable. No ductal dilation. Spleen: Unremarkable. No splenomegaly. Adrenals: Unremarkable. No mass. Kidneys and ureters: There are left renal cysts measuring up to 4.9 cm. Nonobstructing left renal calculi. Left perinephric induration and stranding with moderate left hydronephrosis and hydroureter with periureteral edema which extends into the left UVJ where there is a large UVJ calculus measuring 5 x 8 x 6 mm. Stomach and bowel: There is colonic diverticulosis without evidence of diverticulitis. No obstruction. PELVIS: Appendix: There are no changes of appendicitis. A normal appendix is not seen. Bladder: There is bladder wall thickening, however, the bladder is nondistended and is nonspecific. There is a left bladder diverticulum measuring 2.5 x 1.5 cm. No stones. Reproductive: There is mild prostatic enlargement. ABDOMEN and PELVIS: Intraperitoneal space: Unremarkable. No free air. No significant fluid collection. Bones/joints: Degenerative changes of the lumbar spine with some neural foraminal stenosis, particularly L5-S1. No acute fracture. No dislocation. Soft tissues: Unremarkable. Vasculature: Unremarkable. No abdominal aortic aneurysm. Lymph nodes: Unremarkable. No enlarged lymph nodes. IMPRESSION: 1. Mild bibasilar fibro-atelectatic change which is decreased since 07/13/2016 with resolution of trace left pleural effusion. 2. Large left UVJ calculus measuring 5 x 6 x 8 mm with secondary obstructive uropathy of the left upper tract. 3. Nonobstructing left renal calculi. 4. 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 5. Mild prostatic enlargement. 6. Colonic diverticulosis without diverticulitis.
[2018-07-04 21:00] LABS: ABS Basophils 0.1 10^3/ul (0-0.2); ABS Eosinophils 0 10^3/ul (0-0.6); ABS Lymphocytes 1.6 10^3/ul (1.0-4.8); ABS Monocytes 2.2 10^3/ul (0-0.8); ABS Neutrophils 12.4 10^3/ul (1.5-7.7); ABS Nucleated RBC 0 10^3/ul; Eosinophil % 0.1 % (0-6); Lymphocyte % 9.7 % (25-47); Nucleated Red Blood Cells % 0
[2018-07-04 23:38] VITALS: BP 130/75
== END 2018-07-05 00:02 | disposition short-term general hospital (02) ==
LOC: ED 17:38
DX: N20.2 Calculus of kidney with calculus of ureter (principal); N32.3 Diverticulum of bladder; J98.11 Atelectasis; K57.30 Diverticulosis of large intestine without perforation or abscess without bleeding; F03.90 Unspecified dementia, unspecified severity, without behavioral disturbance, psychotic disturbance, mood disturbance, and anxiety; N40.0 Benign prostatic hyperplasia without lower urinary tract symptoms; Z86.711 Personal history of pulmonary embolism; Z88.8 Allergy status to other drugs, medicaments and biological substances
CPT/HCPCS: 36415; 74176; 80053; 81003; 81015; 82550; 83605; 83690; 83880; 84145; 84484; 85025; 85610; 85730; 86140; 87040; 87086; 96361; 96374; 99285; J0696

== ENCOUNTER 2018-07-07 09:02 | Inpatient (IN) | payer MEDICARE ==
[2018-07-07] MEDS ORDERED: Ondansetron INJ* 2 MG/ML VIAL IV PRN (14:37)
[2018-07-07] MEDS ORDERED: Acetaminophen TAB* 325 MG PO PRN (14:37)
[2018-07-07 15:32] LABS: ABS Basophils 0.1 10^3/ul (0-0.2); ABS Eosinophils 0.2 10^3/ul (0-0.6); ABS Lymphocytes 1.2 10^3/ul (1.0-4.8); ABS Monocytes 1.2 10^3/ul (0-0.8); ABS Neutrophils 7.3 10^3/ul (1.5-7.7); ABS Nucleated RBC 0 10^3/ul; Eosinophil % 1.6 % (0-6); Hematocrit 36 % (42-52); Hemoglobin 12.1 g/dl (14.0-18.0); Lymphocyte % 11.7 % (25-47); Mean Corpuscular HGB Conc 34 g/dl (31-36); Mean Corpuscular Hemoglobin 31 pg (27-31); Mean Corpuscular Volume 93 fL (80-94); Mean Platelet Volume 7.5 um3 (7.4-10.4); Nucleated Red Blood Cells % 0; Platelet Count 214 10^3/ul (150-450); Red Blood Count 3.85 10^6/ul (4.00-5.40); Red Cell Distribution Width 15 % (10.5-15); White Blood Count 9.9 10^3/ul (3.5-10.8)
[2018-07-07 15:45] LABS: INR 1.17 (0.77-1.02)
[2018-07-07 15:55] LABS: EGFR Non-African American 81.7 (>60)
[2018-07-07] MEDS ORDERED: NS 0.9% 500 ML* 500 ML IV ONE (16:07)
[2018-07-07] MEDS ORDERED: Magnesium Sulfate 2 GM IV* 2 GM/50 ML BAG IV ONE (16:07)
[2018-07-07] MEDS ORDERED: Digoxin IV* 0.5 MG/2 ML AMP (0.25 MG/ML) IV SLOW PU ONE ×2 (16:08→19:55)
[2018-07-07] MEDS: Latanoprost 0.005%* 2.5 ml BTL BOTH EYES SCH (18:14)
[2018-07-07] MEDS ORDERED: Digoxin IV* 0.5 MG/2 ML AMP (0.25 MG/ML) ONE (20:09)
[2018-07-07] MEDS: Warfarin TAB(*) 1 MG PO SCH (20:14)
[2018-07-07] MEDS: Sulfamethox/Trimethoprim DS 800/160* TAB PO SCH (20:15)
[2018-07-07] MEDS ORDERED: Sulfamethox/Trimethoprim DS 800/160* TAB PO SCH (21:00)
[2018-07-07] MEDS: Heparin VIAL(*) 5000 UNITS/ML VIAL (FIVE THOUSAND) SUBCUT SCH (21:33)
--- NOTE | 2018-07-07 21:46 | HP ---
CC: Dr. Garner; Dr. Reece; Dr. Frost, Urology in [place] * HISTORY AND PHYSICAL: DATE OF ADMISSION: 07/07/18 PRIMARY CARE PROVIDER: Dr. Garner. MY ATTENDING PHYSICIAN WHILE IN THE HOSPITAL: Trevor Becerril MD * (report dictated by Gilberto Cabrera NP) CHIEF COMPLAINT: Obstructive uropathy. HISTORY OF PRESENT ILLNESS: I refer you to [facility]'s discharge summary for details but in short, Mr. Vizcaino presented to the ER on the night of the with complaints of flank pain, back pain, and increasing confusion. He was found to have an obstructive uropathy. He was transferred to [facility] on the because we did not have any urological backup here. He underwent a cystoscopy. 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 In addition to this, they were unfortunately unable to pass a stent to relieve the obstruction. He was transferred to the PACU. Later in his hospitalization, a nephrostomy tube was placed after his Coumadin was reversed with Kcentra and vitamin K. He went to after reversal of the Coumadin and had a nephrostomy tube placed and postprocedure the patient was having significant confusion, aggressive behavior particularly at night, he had AFib with RVR. He would not take oral medications. He was put on IV diltiazem. He started returning to his baseline. He started getting back on his p.o. medications. His delirium was resolving. The patient was transferred from [facility] to here today for further care, particularly trying to find the patient help at home and to continue his treatment in the form of Bactrim twice a day now, as he was on Zosyn at [facility] and also to continue getting his rate better controlled. The patient was evaluated in the hospital bed. He is denying any chest pain or shortness of breath, although he is pleasantly confused. He at baseline does not know where he is or the year, but he is denying any pain. He denies any lower back pain. He denies having any chest pain or shortness of breath. His is at the bedside with him and does corroborate the story where he was having pain on the significantly in the lower back, wrapping into the front of his stomach. She was concerned because he was acting more confused. He was placed on Zosyn. He did have a microbiology report from that nephrostomy tube that showed no growth. Again, because of this fact and there was concern on the 's part for care for the nephrostomy tube given his aggression she was concerned that he might pull it out at home, so the patient was transferred here for further placement issues and further help at home. PAST MEDICAL HISTORY: Significant for: 1. Arthritis. 2. AFib. 3. BPH. 4. Cataracts. 5. Coronary artery disease. 6. Dementia. 7. Hypertension. 8. There was a note of hepatitis on his H and P from [facility], but the denies this. 9. He also has had PE x2. 10. Ischemic colitis. 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 PAST SURGICAL HISTORY: 1. He has had angioplasty. 2. Cataract extraction. 3. Eye surgery for detached retina. 4. Recently he had nephrostomy and a cystoscopy. MEDICATIONS: His discharge meds and now home meds from [facility] include: 1. Digoxin. He is actually taking 0.625 mg daily. 2. Diltiazem 120 mg daily. 3. Latanoprost 1 drop both eyes at bedtime. 4. B12 of 500 mcg daily. 5. Warfarin. He is on 1 mg p.o. daily. 6. He is also now on Bactrim DS 1 tablet p.o. b.i.d. for 5 more days. 7. Aricept 20 mg daily. ALLERGIES: To medications, it is more of an intolerance, include SIMVASTATIN. FAMILY HISTORY: His mother's history is unknown but the father did have an NH. SOCIAL HISTORY: He is a former smoker. He does drink 1 glass of nonalcoholic wine at night. Surrogate decision maker is his . REVIEW OF SYSTEMS: There is no documented fever. He denied having any significant weight change. There is no double vision. He denies having any ear discharge. There is no rhinorrhea. There is no sore throat. No thyroid enlargement. He denies having any chest pain. There is no orthopnea. There is no nocturnal dyspnea. He denied having any abdominal pain. Currently, there is no nausea, no vomiting. No dysuria, no frequency. No seizure, no loss of consciousness. No pruritus and no skin ulcerations. Review of 14 systems was completed; all others negative. PHYSICAL EXAMINATION GENERAL: At this time, Mr. Vizcaino is an 87-year-old male patient. He is sitting in the hospital bed. He does not appear to be in any acute distress. He appears to be well nourished and well developed. VITAL SIGNS: Blood pressure 115/55 with a pulse of 110, respirations were 18, O2 sat 97%, temperature of 98.7. HEENT: Head: Atraumatic and normocephalic. Eyes: EOMs are intact. Sclerae were anicteric and not pale. His throat, oral mucosa appears to be moist. No oropharyngeal erythema. NECK: Supple. LUNGS: Clear to auscultation bilaterally. No wheezes, rales, or rhonchi. HEART: Sounds S1, S2. He had an irregularly irregular rate and rhythm. No murmurs, rubs, or gallops. ABDOMEN: Soft, flat, nontender. He had no CVA tenderness. He does have a nephrostomy tube noted to the left flank, which is covered with a dressing that is clean, dry, and intact. EXTREMITIES: Pulses were 2+ throughout. He is moving all 4 extremities with 5/ 5 strength. NEUROLOGICAL: He is confused to time and place. He is oriented to self. Speech is clear. His tongue is midline. [place] Sdet were equal. He had no gross focal deficits. SKIN: Intact with the exception he does have that nephrostomy tube to the left kidney. DIAGNOSTIC STUDIES/LAB DATA: He had an abdominal pelvis CT done on 07/04/18, which showed impression: Mild basilar fibroatelectatic change, which has decreased since 07/13/16 exam with resolution of pleural effusion. He has a large left UVJ calculus measuring 5 x 6 x 8 mm with secondary obstructive uropathy of the left upper tract, obstructing left renal calculi, left bladder diverticulum which was seen on prior study, mild prostatic enlargement, colonic diverticulosis without diverticulitis. Labs from this morning: WBC of 12.8, RBC of 4.09, hemoglobin 12.7, hematocrit of 37.8, his platelet count was 224,000. Sodium 143, potassium 4.1, chloride of 107, his bicarb was 21, BUN was 14, glucose was 78, creatinine of 0.91. His calcium was 8.5. Mag was 1.8. Phos 1.8. INR 1.43. Microbiology showed no growth from the neph tube. Old medical records were reviewed. ASSESSMENT AND PLAN: Mr. Vizcaino is an 87-year-old male patient coming from [facility] after having a nephrostomy tube placed secondary to a left renal calculi. We were asked to evaluate after transfer as the patient does need help at home and it was requested that the patient be transferred for further evaluation and possible placement with possible evaluation for VNS. He will be admitted under observation status for: 1. Obstructive uropathy status post nephrostomy tube. The patient has been instructed to follow up with Urology in [place]. There is a number on the [facility] discharge paperwork which the has. He is to follow up with Dr. Garner already which has been scheduled for 07/19/18 at 12 p.m. and she is to call Urology for a followup appointment. There is a plan to reevaluate in 2 weeks to see if a stent can be placed at that point and to further evaluate the bladder tumor but at this point, we will go ahead and continue his Bactrim DS for 5 more days. We will continue to follow him. We will provide nephrostomy tube care teaching and we will also continue with changing the nephrostomy tube dressing every 72 hours as needed for other drainage. That was on the discharge instructions, which we will continue here. Also I have placed a consult to again, social work, for possible placement. 2. Atrial fibrillation. There was difficulty with control. He was 110 here, but when I auscultated him apically he was 90. We will continue his meds as prescribed. I am checking mag and potassium levels and a digoxin level. We will continue current medical regimen. We will get him back on his warfarin at 1 mg a day, may need to consider starting him on a higher dose, but I am going to give 1 mg tonight. This was again on the discharge instructions that it was okay to start the Coumadin tonight, which I am going to restart and slowly get him back to his regimen. I do not believe he needs bridging given the recent procedure. 3. History of pulmonary embolism. I have ordered heparin subcu subtherapeutic dosing and we will get him back on his warfarin. 4. Benign prostatic hypertrophy. Again, follow with his primary urologist. 5. Dementia. Continue with supportive care. 6. Coronary artery disease. Continue his diltiazem. He is not on an aspirin. We can follow with Dr. Reece for this. 7. History of cataracts. Follow with his PCP. 8. History of hypertension. Continue meds as prescribed. 9. DVT prophylaxis. Again, he is high risk, but I have placed him on heparin subcu and SCDs. 10. Code status. He does have a MOLST form. He is a DNR. 11. Fluids, electrolytes, and nutrition. He can have a regular diet. TIME SPENT: On admission was 60 minutes, greater than half the time was spent face- to-face with the patient obtaining my history and physical; other half time was spent going over the plan of care with the patient and implementing the plan of care. I did discuss the plan of care with my attending, Dr. Becerril; he is in agreement. GILBERTO CABRERA, ANDREW [id number]/CPS #: [id number] JOHN
[2018-07-08] MEDS: Heparin VIAL(*) 5000 UNITS/ML VIAL (FIVE THOUSAND) SUBCUT SCH ×3 (05:57→20:08)
[2018-07-08] MEDS: Cyanocobalamin TAB* 500 MCG PO SCH (09:42)
[2018-07-08] MEDS: Donepezil TAB* 5 MG PO SCH (09:42)
[2018-07-08] MEDS: Diltiazem CD CAP* 120 MG PO SCH (09:43)
[2018-07-08] MEDS: Sulfamethox/Trimethoprim DS 800/160* TAB PO SCH ×2 (09:43→20:08)
[2018-07-08] MEDS: Digoxin TAB* 0.125 MG PO SCH (09:43)
[2018-07-08 11:50] LABS: ABS Basophils 0.1 10^3/ul (0-0.2); ABS Eosinophils 0.2 10^3/ul (0-0.6); ABS Lymphocytes 1.2 10^3/ul (1.0-4.8); ABS Monocytes 1.4 10^3/ul (0-0.8); ABS Neutrophils 7.3 10^3/ul (1.5-7.7); ABS Nucleated RBC 0 10^3/ul; Eosinophil % 1.7 % (0-6); Hematocrit 35 % (42-52); Hemoglobin 11.8 g/dl (14.0-18.0); Lymphocyte % 11.6 % (25-47); Mean Corpuscular HGB Conc 34 g/dl (31-36); Mean Corpuscular Hemoglobin 32 pg (27-31); Mean Corpuscular Volume 92 fL (80-94); Mean Platelet Volume 7.5 um3 (7.4-10.4); Nucleated Red Blood Cells % 0; Platelet Count 230 10^3/ul (150-450); Red Blood Count 3.75 10^6/ul (4.00-5.40); Red Cell Distribution Width 15 % (10.5-15); White Blood Count 10.2 10^3/ul (3.5-10.8)
[2018-07-08 11:58] LABS: INR 1.29 (0.77-1.02)
[2018-07-08 12:11] LABS: EGFR Non-African American 81.7 (>60)
[2018-07-08] MEDS: Latanoprost 0.005%* 2.5 ml BTL BOTH EYES SCH (17:20)
--- NOTE | 2018-07-08 18:59 | PN ---
Subjective Date of Service: 07/08/18 Interval History: Confused at baseline per . Patient able to state birthday and name, unable to accurately answer questions. Denies chest pain or shortness of breath. no reported abd pain n/v/d. Family History: Unchanged from Admission Social History: Unchanged from Admission Past Medical History: Unchanged from Admission Objective Active Medications: Acetaminophen (Tylenol Tab*) 650 mg PO Q4H PRN PRN Reason: FEVER/PAIN Cyanocobalamin (Vitamin B12 Tab*) 500 mcg PO DAILY [facility] Last Admin: 07/08/18 09:42 Dose: 500 mcg Digoxin (Lanoxin Tab*) 0.0625 mg PO DAILY [facility] Last Admin: 07/08/18 09:43 Dose: 0.0625 mg Diltiazem HCl (Cardizem Cd Cap*) 120 mg PO DAILY [facility] Last Admin: 07/08/18 09:43 Dose: 120 mg Donepezil HCl (Aricept Tab*) 20 mg PO QAM [facility] Last Admin: 07/08/18 09:42 Dose: 20 mg Heparin Sodium (Porcine) (Heparin Vial(*)) 5,000 units SUBCUT Q8HR [facility] Last Admin: 07/08/18 14:56 Dose: Not Given Latanoprost (Xalatan 0.005%*) 1 drop BOTH EYES QPM [facility] Last Admin: 07/08/18 17:20 Dose: Not Given Ondansetron HCl (Zofran Inj*) 4 mg IV Q6H PRN PRN Reason: NAUSEA Trimethoprim/Sulfamethoxazole (Bactrim Ds 800/160 Tab*) 1 tab PO BID [facility] Last Admin: 07/08/18 09:43 Dose: 1 tab Warfarin Sodium (Coumadin Tab(*)) 1 mg PO DAILY@1999 [facility]; Protocol Last Admin: 07/07/18 20:14 Dose: 1 mg Vital Signs - 8 hr 07/08/18 07/08/18 07/08/18 11:20 14:06 14:10 Temperature 98.3 F 98.3 F Pulse Rate 112 121 88 Respiratory 16 16 Rate Blood Pressure 124/64 89/58 102/68 (mmHg) O2 Sat by Pulse 97 94 94 Oximetry Oxygen Devices in Use Now: None Appearance: alert, confused sitting in the chair , no acute distress Eyes: No Scleral Icterus Ears/Nose/Mouth/Throat: Clear Oropharnyx, Mucous Membranes Moist Neck: NL Appearance and Movements; NL JVP Respiratory: Symmetrical Chest Expansion and Respiratory Effort, Clear to Auscultation Cardiovascular: NL Sounds; No Murmurs; No JVD, No Edema Extremities: No Edema, No Clubbing, Cyanosis Skin: No Rash or Ulcers, - - nephrosotmy tube intact to left posterior flank. site without swelling or redness Neurological: - - confused to place , time and situation Nutrition: Taking PO's Result Diagrams: 07/08/18 11:39 07/08/18 11:39 Assess/Plan/Problems-Billing Assessment: Mr. Vizcaino is a 87 y.o male with a past medical history significant for dementia , CAD, HTN, Arthritis ,BPH, PE x2 who was transferred from [facility] for rehab placement s/p left nephrostomy tube placement. - Patient Problems (1) Obstructive uropathy Current Visit: Yes Status: Acute Code(s): N13.9 - OBSTRUCTIVE AND REFLUX UROPATHY, UNSPECIFIED SNOMED Code(s): 3044603 Comment: S/p Left nephrostomy tube placement at [facility] - transferred to [facility] [place] -site without redness or swelling , draining urine - will monitor site, change dressing Q 72 hours - continue bactrim for 5 more days as per [facility] discharge intructions (2) HTN (hypertension) Current Visit: Yes Status: Acute Code(s): I10 - ESSENTIAL (PRIMARY) HYPERTENSION SNOMED Code(s): 03541552 Comment: stable continue cardizem (3) DVT prophylaxis Current Visit: No Status: Acute Code(s): FLS7419 - SNOMED Code(s): 522814862 Comment: Coumadin heparin (4) Dementia Current Visit: No Status: Acute Code(s): F03.90 - UNSPECIFIED DEMENTIA WITHOUT BEHAVIORAL DISTURBANCE SNOMED Code(s): 73892957 Comment: at baseline per - will contiue supportive care and aricept (5) PAF (paroxysmal atrial fibrillation) Current Visit: No Status: Acute Code(s): I48.0 - PAROXYSMAL ATRIAL FIBRILLATION SNOMED Code(s): 495091483 Comment: afib-/ flutter 88-110's will continue digoxin and cardizem
[2018-07-08] MEDS: Warfarin TAB(*) 1 MG PO SCH (20:08)
[2018-07-09] MEDS: Heparin VIAL(*) 5000 UNITS/ML VIAL (FIVE THOUSAND) SUBCUT SCH ×4 (05:48→21:34)
[2018-07-09 06:41] LABS: Hematocrit 34 % (42-52); Hemoglobin 11.6 g/dl (14.0-18.0); Mean Corpuscular HGB Conc 34 g/dl (31-36); Mean Corpuscular Hemoglobin 31 pg (27-31); Mean Corpuscular Volume 92 fL (80-94); Mean Platelet Volume 7.6 um3 (7.4-10.4); Platelet Count 233 10^3/ul (150-450); Red Blood Count 3.68 10^6/ul (4.00-5.40); Red Cell Distribution Width 14 % (10.5-15); White Blood Count 8.8 10^3/ul (3.5-10.8)
[2018-07-09 07:01] LABS: EGFR Non-African American 74.8 (>60)
[2018-07-09] MEDS: Donepezil TAB* 5 MG PO SCH (08:30)
[2018-07-09] MEDS: Diltiazem CD CAP* 120 MG PO SCH (08:36)
[2018-07-09] MEDS: Sulfamethox/Trimethoprim DS 800/160* TAB PO SCH ×2 (08:37→21:34)
[2018-07-09] MEDS: Cyanocobalamin TAB* 500 MCG PO SCH (08:38)
[2018-07-09] MEDS: Digoxin TAB* 0.125 MG PO SCH (08:38)
[2018-07-09] MEDS ORDERED: Magnesium Sulfate 2 GM IV* 2 GM/50 ML BAG IVPB ONE (11:04)
[2018-07-09] MEDS: Latanoprost 0.005%* 2.5 ml BTL BOTH EYES SCH (17:32)
--- NOTE | 2018-07-09 17:43 | PN ---
Subjective Date of Service: 07/09/18 Interval History: Confused sitting in the chair. no reported fever during the night. left nephrostomy tube intact and patent, draining dark yellow urine. Denies pain but unable to accurately participate in conversation d/t his level of dementia. Able to make needs known. Discussed with family discharge care options - wishes for short term rehab as she is unable to care for the patient at home at this time. Family History: Unchanged from Admission Social History: Unchanged from Admission Past Medical History: Unchanged from Admission Objective Active Medications: Acetaminophen (Tylenol Tab*) 650 mg PO Q4H PRN PRN Reason: FEVER/PAIN Cyanocobalamin (Vitamin B12 Tab*) 500 mcg PO DAILY [facility] Last Admin: 07/09/18 08:38 Dose: 500 mcg Digoxin (Lanoxin Tab*) 0.0625 mg PO DAILY [facility] Last Admin: 07/09/18 08:38 Dose: 0.0625 mg Diltiazem HCl (Cardizem Cd Cap*) 120 mg PO DAILY [facility] Last Admin: 07/09/18 08:36 Dose: 120 mg Donepezil HCl (Aricept Tab*) 20 mg PO QAM [facility] Last Admin: 07/09/18 08:30 Dose: 20 mg Heparin Sodium (Porcine) (Heparin Vial(*)) 5,000 units SUBCUT Q8HR [facility] Last Admin: 07/09/18 14:19 Dose: 5,000 units Latanoprost (Xalatan 0.005%*) 1 drop BOTH EYES QPM [facility] Last Admin: 07/08/18 17:20 Dose: Not Given Ondansetron HCl (Zofran Inj*) 4 mg IV Q6H PRN PRN Reason: NAUSEA Trimethoprim/Sulfamethoxazole (Bactrim Ds 800/160 Tab*) 1 tab PO BID [facility] Last Admin: 07/09/18 08:37 Dose: 1 tab Warfarin Sodium (Coumadin Tab(*)) 1 mg PO DAILY@1999 [facility]; Protocol Last Admin: 07/08/18 20:08 Dose: 1 mg Vital Signs - 8 hr 07/09/18 13:03 Temperature 97.9 F Pulse Rate 53 Respiratory 16 Rate Blood Pressure 99/57 (mmHg) O2 Sat by Pulse 95 Oximetry Oxygen Devices in Use Now: None Appearance: confused sitting in the chair, no acute distress Eyes: No Scleral Icterus Ears/Nose/Mouth/Throat: Clear Oropharnyx, Mucous Membranes Moist Neck: NL Appearance and Movements; NL JVP, Trachea Midline Respiratory: Symmetrical Chest Expansion and Respiratory Effort, Clear to Auscultation Cardiovascular: NL Sounds; No Murmurs; No JVD, No Edema Abdominal: NL Sounds; No Tenderness; No Distention, - - left nephrostomy Extremities: No Edema, No Clubbing, Cyanosis Skin: No Rash or Ulcers Neurological: - - confused, oriented to name, confused to place, time and situation Nutrition: Taking PO's Result Diagrams: 07/09/18 06:19 07/09/18 06:19 Assess/Plan/Problems-Billing Assessment: Mr. Vizcaino is a 87 y.o male with a past medical history significant for dementia , CAD, HTN, Arthritis ,BPH, PE x2 who was transferred from [facility] for rehab placement s/p left nephrostomy tube placement. - Patient Problems (1) Obstructive uropathy Current Visit: Yes Status: Acute Code(s): N13.9 - OBSTRUCTIVE AND REFLUX UROPATHY, UNSPECIFIED SNOMED Code(s): 9632740 Comment: S/p Left nephrostomy tube placement at [facility] - transferred to [facility] [place] -site without redness or swelling , patent draining dark yellow urine - will monitor site, change dressing Q 72 hours - continue bactrim for 5 more days as per [facility] discharge intructions (2) HTN (hypertension) Current Visit: Yes Status: Acute Code(s): I10 - ESSENTIAL (PRIMARY) HYPERTENSION SNOMED Code(s): 82843138 Comment: stable continue cardizem (3) DVT prophylaxis Current Visit: No Status: Acute Code(s): UAG3576 - SNOMED Code(s): 392740447 Comment: Coumadin heparin (4) Dementia Current Visit: No Status: Acute Code(s): F03.90 - UNSPECIFIED DEMENTIA WITHOUT BEHAVIORAL DISTURBANCE SNOMED Code(s): 99367255 Comment: at baseline per - will contiue supportive care and aricept (5) PAF (paroxysmal atrial fibrillation) Current Visit: No Status: Acute Code(s): I48.0 - PAROXYSMAL ATRIAL FIBRILLATION SNOMED Code(s): 437103285 Comment: afib-/ flutter 50's to 120 will continue digoxin and cardizem - HR is elevated in the 110's in the AM and 50's in the afternoon - will try adjusting medication times to better regulate HR. Status and Disposition: inpatient - to [facility] on thursday
[2018-07-09] MEDS: Warfarin TAB(*) 1 MG PO SCH (21:33)
[2018-07-10] MEDS: Heparin VIAL(*) 5000 UNITS/ML VIAL (FIVE THOUSAND) SUBCUT SCH ×3 (04:12→21:02)
[2018-07-10 06:36] LABS: ABS Basophils 0.1 10^3/ul (0-0.2); ABS Eosinophils 0.3 10^3/ul (0-0.6); ABS Lymphocytes 1.5 10^3/ul (1.0-4.8); ABS Monocytes 1.2 10^3/ul (0-0.8); ABS Neutrophils 4.9 10^3/ul (1.5-7.7); ABS Nucleated RBC 0 10^3/ul; Eosinophil % 4.2 % (0-6); Hematocrit 34 % (42-52); Hemoglobin 11.7 g/dl (14.0-18.0); Lymphocyte % 18.4 % (25-47); Mean Corpuscular HGB Conc 34 g/dl (31-36); Mean Corpuscular Hemoglobin 31 pg (27-31); Mean Corpuscular Volume 92 fL (80-94); Mean Platelet Volume 7.7 um3 (7.4-10.4); Nucleated Red Blood Cells % 0; Platelet Count 250 10^3/ul (150-450); Red Blood Count 3.71 10^6/ul (4.00-5.40); Red Cell Distribution Width 15 % (10.5-15); White Blood Count 8.1 10^3/ul (3.5-10.8)
[2018-07-10] MEDS: Donepezil TAB* 5 MG PO SCH (08:14)
[2018-07-10] MEDS: Digoxin TAB* 0.125 MG PO SCH (08:15)
[2018-07-10] MEDS: Diltiazem CD CAP* 120 MG PO SCH (08:15)
[2018-07-10] MEDS: Sulfamethox/Trimethoprim DS 800/160* TAB PO SCH ×2 (08:15→20:15)
[2018-07-10] MEDS: Cyanocobalamin TAB* 500 MCG PO SCH (08:15)
--- NOTE | 2018-07-10 08:39 | PN ---
Subjective Date of Service: 07/10/18 Interval History: Mr. Vizcaino is reluctant to speak with me this morning but he denies complaint. His has also not noticed any complaint but notes that he seems to be less talkative today and more frustrated. Family History: Unchanged from Admission Social History: Unchanged from Admission Past Medical History: Unchanged from Admission Objective Active Medications: Acetaminophen (Tylenol Tab*) 650 mg PO Q4H PRN Cyanocobalamin (Vitamin B12 Tab*) 500 mcg PO DAILY [facility] Digoxin (Lanoxin Tab*) 0.0625 mg PO DAILY [facility] Diltiazem HCl (Cardizem Cd Cap*) 120 mg PO DAILY [facility] Donepezil HCl (Aricept Tab*) 20 mg PO QAM [facility] Heparin Sodium (Porcine) (Heparin Vial(*)) 5,000 units SUBCUT Q8HR [facility] Latanoprost (Xalatan 0.005%*) 1 drop BOTH EYES QPM [facility] Ondansetron HCl (Zofran Inj*) 4 mg IV Q6H PRN Trimethoprim/Sulfamethoxazole (Bactrim Ds 800/160 Tab*) 1 tab PO BID [facility] Warfarin Sodium (Coumadin Tab(*)) 1 mg PO DAILY@1999 [facility]; Protocol Vital Signs: Temp Pulse Resp BP Pulse Ox 98.7 F 92 18 103/54 94 07/10/18 08:09 07/10/18 07:15 07/10/18 08:09 07/10/18 08:09 07/10/18 08:09 Oxygen Devices in Use Now: None Appearance: Male sitting up in bed in NAD Eyes: No Scleral Icterus Ears/Nose/Mouth/Throat: Mucous Membranes Moist Neck: NL Appearance and Movements; NL JVP Respiratory: Symmetrical Chest Expansion and Respiratory Effort, Clear to Auscultation Cardiovascular: NL Sounds; No Murmurs; No JVD, No Edema Abdominal: NL Sounds; No Tenderness; No Distention Extremities: No Edema Skin: No Rash or Ulcers Neurological: NL Muscle Strength and Tone, - - Alert, oriented to self Nutrition: Taking PO's Result Diagrams: 07/10/18 06:12 07/09/18 06:19 Assess/Plan/Problems-Billing Assessment: Mr. Vizcaino is a 87 y.o male with a past medical history significant for dementia , CAD, HTN, Arthritis ,BPH, PE x2 who was transferred from [facility] for rehab placement s/p left nephrostomy tube placement. - Patient Problems (1) Obstructive uropathy Comment: - S/p left nephrostomy tube placement at [facility] on 07/05/18. 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 - Will monitor site, change dressing Q 72 hours - Continue bactrim for 5 more days as per [facility] discharge intructions - Plan for follow up with Dr. Garner Update on 07/19/18 at 12pm (2) HTN (hypertension) Comment: - BP well controlled. - Continue cardizem. (3) PAF (paroxysmal atrial fibrillation) Comment: - HR 80-90s. In afib/flutter on arrival. - Continue cardizem and digoxin. Continue warfarin, no hx of CVA so no bridging therapy indicated. (4) Dementia Comment: - Contiue supportive care and aricept (5) DVT prophylaxis Comment: - Coumadin with heparin SQ until INR therapeutic (6) DNR (do not resuscitate) Comment: Status and Disposition: Inpatient - to [facility] on Thursday.
[2018-07-10] MEDS: Latanoprost 0.005%* 2.5 ml BTL BOTH EYES SCH (17:26)
[2018-07-10] MEDS: Warfarin TAB(*) 1 MG PO SCH (20:15)
[2018-07-11] MEDS ORDERED: Haloperidol INJ IV/IM* 5 MG/ML AMP IV ONE (01:07)
[2018-07-11] MEDS: Heparin VIAL(*) 5000 UNITS/ML VIAL (FIVE THOUSAND) SUBCUT SCH (05:30)
[2018-07-11 06:32] LABS: INR 2.47 (0.77-1.02)
--- NOTE | 2018-07-11 07:40 | PN ---
Subjective Date of Service: 07/11/18 Interval History: Mr. Vizcaino denies complaint today and is pleasant and cooperative. Nursing staff report that he was agitated through the night, requiring haldol times one. Family History: Unchanged from Admission Social History: Unchanged from Admission Past Medical History: Unchanged from Admission Objective Active Medications: Acetaminophen (Tylenol Tab*) 650 mg PO Q4H PRN Cyanocobalamin (Vitamin B12 Tab*) 500 mcg PO DAILY [facility] Digoxin (Lanoxin Tab*) 0.0625 mg PO DAILY [facility] Diltiazem HCl (Cardizem Cd Cap*) 120 mg PO DAILY [facility] Donepezil HCl (Aricept Tab*) 20 mg PO QAM [facility] Heparin Sodium (Porcine) (Heparin Vial(*)) 5,000 units SUBCUT Q8HR [facility] Latanoprost (Xalatan 0.005%*) 1 drop BOTH EYES QPM [facility] Magnesium Oxide (Magox 400 Tab*) 400 mg PO DAILY [facility] Ondansetron HCl (Zofran Inj*) 4 mg IV Q6H PRN Trimethoprim/Sulfamethoxazole (Bactrim Ds 800/160 Tab*) 1 tab PO BID [facility] Warfarin Sodium (Coumadin Tab(*)) 1 mg PO DAILY@1999 [facility]; Protocol Vital Signs: Temp Pulse Resp BP Pulse Ox 99.6 F 114 18 132/75 97 07/10/18 23:20 07/10/18 23:20 07/10/18 23:20 07/10/18 23:20 07/10/18 23:20 Oxygen Devices in Use Now: None Appearance: Male lying in bed in NAD Eyes: No Scleral Icterus Ears/Nose/Mouth/Throat: Mucous Membranes Moist Neck: Trachea Midline Respiratory: Symmetrical Chest Expansion and Respiratory Effort, Clear to Auscultation Cardiovascular: NL Sounds; No Murmurs; No JVD, No Edema Abdominal: NL Sounds; No Tenderness; No Distention Lymphatic: No Cervical Adenopathy Extremities: No Edema Skin: No Rash or Ulcers Neurological: NL Muscle Strength and Tone, - - Alert and oriented to self, pleasant and cooperative, more talkative than yesterday Nutrition: Taking PO's Result Diagrams: 07/10/18 06:12 07/09/18 06:19 Assess/Plan/Problems-Billing Assessment: Mr. Vizcaino is a 87 y.o male with a past medical history significant for dementia , CAD, HTN, Arthritis ,BPH, PE x2 who was transferred from [facility] for rehab placement s/p left nephrostomy tube placement. - Patient Problems (1) Obstructive uropathy Comment: - S/p left nephrostomy tube placement at [facility] on 07/05/18. Had obstructing renal calculi but stent could not be placed as ureteral openings were obscured by bladder trabeculations. 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 - Change dressing Q 72 hours - Continue bactrim, last dose 07/12/18 - Plan for follow up with Dr. Garner ([facility]) on 07/19/18 at 12pm (2) HTN (hypertension) Comment: - BP well controlled. - Continue cardizem. (3) PAF (paroxysmal atrial fibrillation) Comment: - HR 110s again today. In afib/flutter on arrival. - Increase cardizem from 120 to 180mg daily, continue digoxin (level 0.8). Continue warfarin, INR therapeutic. (4) Dementia Comment: - Contiue supportive care and aricept (5) DVT prophylaxis Comment: - Coumadin with heparin SQ until INR therapeutic (6) DNR (do not resuscitate) Comment: Status and Disposition: Inpatient - to [facility] on Thursday.
[2018-07-11] MEDS: Digoxin TAB* 0.125 MG PO SCH (08:54)
[2018-07-11] MEDS: Magnesium Oxide TAB* 400 MG PO SCH (08:54)
[2018-07-11] MEDS: Cyanocobalamin TAB* 500 MCG PO SCH (08:55)
[2018-07-11] MEDS: Sulfamethox/Trimethoprim DS 800/160* TAB PO SCH ×2 (08:55→23:12)
[2018-07-11] MEDS: Diltiazem CD CAP* 120 MG PO SCH (08:55)
[2018-07-11] MEDS: Donepezil TAB* 5 MG PO SCH (08:55)
[2018-07-11] MEDS ORDERED: Diltiazem TAB* 60 MG PO ONE (09:23)
[2018-07-11 11:00] LABS: Hematocrit 35 % (42-52); Hemoglobin 11.8 g/dl (14.0-18.0)
[2018-07-11] MEDS: Latanoprost 0.005%* 2.5 ml BTL BOTH EYES SCH (17:31)
--- NOTE | 2018-07-12 00:14 | DS ---
AMENDED REPORT NOW INCLUDES COSIGNER DESIGNATION CC: Dr. Garner; Urologist in [place], Dr. Amato * HOSPITAL MEDICINE DISCHARGE SUMMARY: DATE OF ADMISSION: 07/07/18 DATE OF DISCHARGE: 07/12/18 PRIMARY CARE PHYSICIAN: Dr. Garner. UROLOGIST: Urologist in [place], Dr. Amato. ATTENDING PHYSICIAN: Celio Santamaria MD * (dictation provided by Genesis Gill NP ). PRIMARY DIAGNOSES: 1. Status post nephrostomy tube placement for obstructive uropathy. 2. Urinary tract infection, completed antibiotic therapy. SECONDARY DIAGNOSES: 1. A new finding of papillary tumor. Plan is to follow up with Dr. Garner in [place]. 2. Arthritis. 3. Atrial fibrillation. 4. Benign prostatic hypertrophy. 5. Cataracts. 6. Coronary artery disease. 7. Dementia. 8. Hypertension. 9. History of pulmonary embolism x2. 10. Ischemic colitis. PAST SURGICAL HISTORY: 1. History of angioplasty. 2. Cataract extraction. 3. Eye surgery for detached retina. MEDICATIONS AT THE TIME OF DISCHARGE: 1. Cardizem CD 240 mg p.o. daily (recently increased from 120 mg p.o. daily). 2. Warfarin 1 mg p.o. daily with INR 2.47. 3. Xalatan 0.005% 1 drop both eyes q.p.m. 4. Donepezil 20 mg p.o. q.a.m. 5. Cyanocobalamin 500 mcg p.o. daily. 6. Digoxin 62.5 mcg p.o. daily with the last digoxin level 0.8. 7. Magnesium oxide 400 mg p.o. daily. HOSPITAL COURSE: Mr. Vizcaino is an 87-year-old male with past medical history as outlined above, who presented to the hospital on transfer from [facility] on 07/07/18. Please see the dictated H and P from Gilberto Cabrera NP, for complete details. In brief, the patient had been to our ER on 07/05/18, and was found to have obstructive uropathy. Due to lack of Urology coverage here at that point, the patient was transferred to [facility]. There he underwent cystoscopy, but a stent was unable to be placed due to the presence of obstructing bladder trabeculations that prevented pass of the scope into the ureteral orifice. The patient was then taken to the OR for placement of a nephrostomy tube. He did require the treatment with Kcentra and vitamin K due to being on Coumadin therapy before that procedure. Mr. Vizcaino was transferred back to our hospital with plans for placement for rehabilitation. He has completed a course of Bactrim for presence of urinary tract infection. He has been doing well while here is the hospital. He has had no fever, no chills. No nausea, vomiting, diarrhea or abdominal pain. He denies chest pain or shortness of breath. His vitals have been stable. His labs are stable. During this hospitalization, the patient has had some periods of tachycardia with the heart rate running about 110. I checked the digoxin level and it is 0.8, and then have increased his Cardizem CD from 120 mg p.o. daily to 240 mg daily in hopes that this will achieve better rate control for him. In addition , patient had a small amount of blood in stool, however Hgb was stable throughout his stay. I reviewed this with his who reports this has been a retirement intermittent issue and that he has tolerated being on coumadin throughout. She would like to continue coumadin but he will need to be watched closely for signs of bleeding. Mr. Vizcaino is planned to be discharged to [facility] for short-term rehab on 07/12/18. DISPOSITION: [place]. DIET: Regular. ACTIVITY: As tolerated. FOLLOWUP PLAN: 1. Please follow up with Dr. Garner, [place] urologist, on 07/19/18 at noon. 2. Please follow up with Dr. Garner from [facility] for general followup after acute hospitalization. TIME SPENT: Approximately 60 minutes were spent in the discharge of this patient, more than half that time was spent with the patient at the bedside and with his reviewing the events leading up to this hospitalization, performing the physical examination, and reviewing the plan of care. GENESIS GILL NP [id number]/CPS #: [id number] MTDD
[2018-07-12 06:55] LABS: ABS Basophils 0.1 10^3/ul (0-0.2); ABS Eosinophils 0.3 10^3/ul (0-0.6); ABS Lymphocytes 1.9 10^3/ul (1.0-4.8); ABS Monocytes 1.4 10^3/ul (0-0.8); ABS Nucleated RBC 0 10^3/ul; Eosinophil % 3.4 % (0-6); Hematocrit 35 % (42-52); Hemoglobin 11.9 g/dl (14.0-18.0); Lymphocyte % 21.9 % (25-47); Mean Corpuscular HGB Conc 34 g/dl (31-36); Mean Corpuscular Hemoglobin 31 pg (27-31); Mean Corpuscular Volume 92 fL (80-94); Mean Platelet Volume 7.3 um3 (7.4-10.4); Nucleated Red Blood Cells % 0.1; Platelet Count 280 10^3/ul (150-450); Red Blood Count 3.84 10^6/ul (4.00-5.40); Red Cell Distribution Width 15 % (10.5-15); White Blood Count 8.8 10^3/ul (3.5-10.8)
[2018-07-12 07:13] LABS: INR 2.51 (0.77-1.02)
[2018-07-12 08:00] VITALS: BP 123/72
--- NOTE | 2018-07-12 08:36 | PN ---
Progress Note - Progress Note Date of Service: 07/12/18 Note: Plan for discharge today, paperwork completed yesterday (07/11/18). Reviewed report of blood in stool at length with . Note is made of the fact that the patient's Hgb is unchanged. His reports that this has been an ongoing issue for several years. He has report of a colonoscopy in 2016 which showed ischemic colitis only. Patient denies abdominal pain and is tolerating oral intake well. Patient has tolerated being on coumadin with a therapeutic INR, which patient's would like to continue. Encouraged to work with [facility] staff and providers to monitor for signs of bleeding and intervene as indicated.
[2018-07-12] MEDS ORDERED: Diltiazem CD CAP* 240 MG PO SCH (09:00)
[2018-07-12] MEDS ORDERED: Diltiazem CD CAP* 180 MG PO SCH (09:00)
[2018-07-12] MEDS: Cyanocobalamin TAB* 500 MCG PO SCH (09:31)
[2018-07-12] MEDS: Donepezil TAB* 5 MG PO SCH (09:31)
[2018-07-12] MEDS: Magnesium Oxide TAB* 400 MG PO SCH (09:31)
[2018-07-12] MEDS: Digoxin TAB* 0.125 MG PO SCH (09:31)
[2018-07-12] MEDS: Sulfamethox/Trimethoprim DS 800/160* TAB PO SCH (09:33)
== END 2018-07-12 11:30 | DRG 690 ==
LOC: INTOOBSV 12:45 → MED 12:45 → OBSVTOIN 14:33 → MED 07-08 15:39
PROVIDERS: ADMIT Internal Medicine; ATTEND Internal Medicine
DX: N13.5 Crossing vessel and stricture of ureter without hydronephrosis (principal); N39.0 Urinary tract infection, site not specified; K55.9 Vascular disorder of intestine, unspecified; K92.1 Melena; J98.11 Atelectasis; N20.0 Calculus of kidney; I48.0 Paroxysmal atrial fibrillation; Z93.6 Other artificial openings of urinary tract status; I11.9 Hypertensive heart disease without heart failure; F03.90 Unspecified dementia, unspecified severity, without behavioral disturbance, psychotic disturbance, mood disturbance, and anxiety; D36.9 Benign neoplasm, unspecified site; Z66 Do not resuscitate; D41.4 Neoplasm of uncertain behavior of bladder; Z79.01 Long term (current) use of anticoagulants; M19.90 Unspecified osteoarthritis, unspecified site; N40.0 Benign prostatic hyperplasia without lower urinary tract symptoms; I25.10 Atherosclerotic heart disease of native coronary artery without angina pectoris; Z98.61 Coronary angioplasty status; Z86.711 Personal history of pulmonary embolism; Z79.899 Other long term (current) drug therapy; Z88.8 Allergy status to other drugs, medicaments and biological substances; Z82.49 Family history of ischemic heart disease and other diseases of the circulatory system; Z87.891 Personal history of nicotine dependence; Z75.1 Person awaiting admission to adequate facility elsewhere; N32.3 Diverticulum of bladder; K57.30 Diverticulosis of large intestine without perforation or abscess without bleeding
CPT/HCPCS: 36415; 80048; 80162; 83735; 85014; 85018; 85025; 85027; 85610; 85730; 93005; A9270-GY; G8978-GP-CH; G8979-GP-CH; G8980-GP-CH; G8987-GO-CK; G8988-GO-CJ; J1160; J1630; J1644; J3475

== ENCOUNTER 2018-11-25 02:13 | Emergency (ER) | payer MEDICARE ==
[2018-11-25] MEDS ORDERED: NS 0.9% 1000 ML** 1,000 ML IV ONE (02:35)
[2018-11-25] MEDS ORDERED: Haloperidol INJ IV/IM* 5 MG/ML AMP IM ONE (02:37)
[2018-11-25] MEDS ORDERED: LORazepam INJ* 2 MG/ML 1 ML VIAL IV PUSH ONE (02:37)
[2018-11-25] MEDS ORDERED: Haloperidol INJ IV/IM* 5 MG/ML AMP ONE (02:39)
--- NOTE | 2018-11-25 02:40 | ED ---
Abdominal Pain/Male - HPI Summary HPI Summary: LEVEL 5 CAVEAT DUE TO DEMENTIA. This patient is an 87 year old M with severe dementia accompanied by his presenting to ED with a chief complaint of abdominal pain since a few hours ago. The patient woke up his and pointed to his abdomen. Symptoms aggravated by nothing. Symptoms alleviated by nothing. denies vomiting and recent falls. The patient is able to walk on his own. Per the , the patient s eating habits have not changed. PMHx of scoliosis. The says that he takes Digoxin (1x a day) 1.25 mg for his afib, baby ASA, D3, and B12. The patient is not on any blood thinners. - History of Current Complaint Stated Complaint: ABD PAIN Time Seen by Provider: 11/25/18 02:14 Hx Obtained From: Family/Qc Scientist - Hx From Patient Unobtainable Due To: Dementia Onset/Duration: Sudden Onset, Lasting Hours, Still Present Timing: Constant Location: Other - unknown Aggravating Factor(s): Nothing Alleviating Factor(s): Nothing Associated Signs And Symptoms: Positive: Other - denies recent falls. Negative : Vomiting - Allergies/Home Medications Allergies/Adverse Reactions: Allergies Allergy/AdvReac Type Severity Reaction Status Date / Time simvastatin AdvReac See Comment Verified 02/10/18 11:25 PMH/Surg Hx/FS Hx/Imm Hx Previously Healthy: No - LEVEL 5 CAVEAT DUE TO DEMENTIA. Endocrine/Hematology History: Reports: Hx Anticoagulant Therapy Cardiovascular History: Reports: Hx Coronary Artery Disease, Hx Deep Vein Thrombosis - July 2017, Hx Embolism - PE july 2017, Hx Hypercholesterolemia, Hx Hypertension Respiratory History: Reports: Hx Pneumonia History: Denies: Hx Benign Prostatic Hyperplasia Musculoskeletal History: Reports: Hx Arthritis, Hx Osteoporosis, Hx Scoliosis Sensory History: Reports: Hx Cataracts - BILATERAL, Hx Contacts or Glasses - GLASSES, Hx Hearing Aid, Hx Hearing Problem Opthamlomology History: Reports: Hx Cataracts - BILATERAL, Hx Contacts or Glasses - GLASSES Neurological History: Reports: Hx Dementia, Other Neuro Impairments/Disorders - MILD DEMENTIA, MEMORY LOSS - Surgical History Surgery Procedure, Year, and Place: 1989 ANGIOPLASTY, [facility]. 1993 SURGERY FOR NEARLY DETATCHED RIGHT RETINA, [facility] Hx Anesthesia Reactions: Yes - CONFUSED AFTER RETINA SURGERY Infectious Disease History: Unable to Obtain/Confirm Infectious Disease History: Reports: Hx Hepatitis Denies: Traveled Outside the [place] in Last 30 Days - Family History Known Family History: Negative: Other - negative malignant hypothermia, negative adverse reacton to anesthesia Family History: No FHx anesthesia reaction - Social History Alcohol Use: None Alcohol Amount: wine 1-2 glasses Hx Substance Use: No Substance Use Type: Reports: None Hx Tobacco Use: No Smoking Status (MU): Former Smoker Review of Systems Positive: Abdominal Pain. Negative: Vomiting Positive: Other - denies recent falls All Other Systems Reviewed And Are Negative: No - Comments Additional Review of Systems Comments: LEVEL 5 CAVEAT DUE TO DEMENTIA. Physical Exam - Summary Physical Exam Summary: VITAL SIGNS: Reviewed. GENERAL: Patient is a well-developed and nourished MALE who is lying comfortable in the stretcher. Patient is not in any acute respiratory distress. Patient seems angry. HEAD AND FACE: No signs of trauma. No ecchymosis, hematomas or skull depressions. No sinus tenderness. EYES: PERRLA, EOMI x 2, No injected conjunctiva, no nystagmus. EARS: Hearing grossly intact. Ear canals and tympanic membranes are within normal limits. MOUTH: Oropharynx within normal limits. NECK: Supple, trachea is midline, no adenopathy, no JVD, no carotid bruit, no c- spine tenderness, neck with full ROM. CHEST: Symmetric, no tenderness at palpation LUNGS: Clear to auscultation bilaterally. No wheezing or crackles. CVS: Regular rate and rhythm, S1 and S2 present, no murmurs or gallops appreciated. ABDOMEN: Soft, may have some abdominal tenderness. Currently unable to confirm. No signs of distention. No rebound no guarding, and no masses palpated. Bowel sounds are normal. EXTREMITIES: FROM in all major joints, no edema, no cyanosis or clubbing. NEURO: Alert and oriented x 3. No acute neurological deficits. Speech is normal and follows commands. SKIN: Dry and warm Triage Information Reviewed: Yes Vital Signs On Initial Exam: Initial Vitals Temp Pulse Resp BP Pulse Ox 98.1 F 90 18 136/92 97 11/25/18 02:18 11/25/18 02:18 11/25/18 02:18 11/25/18 02:18 11/25/18 02:18 Vital Signs Reviewed: Yes Completion Of Physical Exam Limited Due To: Dementia, Level 5 Diagnostics - Vital Signs Vital Signs Temp Pulse Resp BP Pulse Ox 11/25/18 02:18 98.1 F 90 18 136/92 97 - Laboratory Result Diagrams: 11/25/18 03:31 11/25/18 03:31 Lab Statement: Any lab studies that have been ordered have been reviewed, and results considered in the medical decision making process. - CT CT chest/abd/pel CT Interpretation Completed By: Radiologist Summary of CT Findings: CT chest reveals no acute findings. CT abd/pel reveals 1. Large fecal load. 2. Colonic diverticulosis with no evidence of acute diverticulitis. 3. Left bladder diverticulum. 4. Enlarged prostate gland with coarse calcifications. 5. Partially visualized high position of left testicle, just below the inguinal canal. 6. 2 adjacent complex left renal cysts measuring 4.5 cm and 1.3 cm, respectively. Further evaluation may be considered. ED physician has reviewed this radiology report. - EKG 0336 Cardiac Rate: Other Rate - afib/flutter at 114 BPM EKG Rhythm: Atrial Fibrillation - afib/flutter Summary of EKG Findings: No ischemic changes Re-Evaluation - Re-Evaluation First Eval Re-Evaluation Time: 05:38 Comment: Discussed the CT results and plan for discharge. Abdominal Pain Fem Course/Dx - Course Assessment/Plan: LEVEL 5 CAVEAT DUE TO DEMENTIA. This patient is an 87 year old M with severe dementia accompanied by his presenting to ED with a chief complaint of abdominal pain since a few hours ago. EKG done at 0336 reveals afib/flutter at 114 BPM and no ischemic changes. CT chest reveals no acute findings. CT abd/pel reveals 1. Large fecal load. 2. Colonic diverticulosis with no evidence of acute diverticulitis. 3. Left bladder diverticulum. 4. Enlarged prostate gland with coarse calcifications. 5. Partially visualized high position of left testicle, just below the inguinal canal. 6. 2 adjacent complex left renal cysts measuring 4.5 cm and 1.3 cm, respectively. Further evaluation may be considered. This patient will be discharged with dx of constipation and UTI. Patient's understands and agrees with this plan. - Diagnoses Differential Diagnosis/HQI/PQRI: Constipation, Urinary Tract Infection Provider Diagnoses: Constipation, UTI (urinary tract infection) Discharge - Sign-Out/Discharge Documenting (check all that apply): Patient Departure - discharge Patient Received Moderate/Deep Sedation with Procedure: No - Discharge Plan Condition: Stable Disposition: HOME Prescriptions: Levofloxacin TAB* [Levaquin TAB*] 500 mg PO DAILY #7 tab Patient Education Materials: Constipation (ED), Urinary Tract Infection in Men (ED) Referrals: Nicolasa Garner MD [Primary Care Provider] - (Follow up in 1-2 days.) Additional Instructions: RETURN TO THE EMERGENCY DEPARTMENT FOR CHANGING OR WORSENING SYMPTOMS. FOLLOW UP WITH PCP IN 1-2 DAYS. - Attestation Statements Document Initiated by Scribe: Yes Documenting Scribe: Amilcar Mckay Provider For Whom Scribe is Documenting (Include Credential): Sarai Leiva MD Scribe Attestation: Amilcar Brown, scribed for Sarai Leiva MD on 11/25/18 at 0538. Status of Scribe Document: Ready
[2018-11-25 03:46] LABS: ABS Basophils 0.1 10^3/ul (0-0.2); ABS Eosinophils 0.4 10^3/ul (0-0.6); ABS Lymphocytes 2.9 10^3/ul (1.0-4.8); ABS Monocytes 1.4 10^3/ul (0-0.8); ABS Neutrophils 4.8 10^3/ul (1.5-7.7); ABS Nucleated RBC 0 10^3/ul; Eosinophil % 4.6 %; Hematocrit 36 % (42-52); Hemoglobin 11.6 g/dl (14.0-18.0); Lymphocyte % 29.9 %; Mean Corpuscular HGB Conc 32 g/dl (31-36); Mean Corpuscular Hemoglobin 30 pg (27-31); Mean Corpuscular Volume 93 fL (80-94); Mean Platelet Volume 7.9 fL (7.4-10.4); Nucleated Red Blood Cells % 0; Platelet Count 264 10^3/ul (150-450); Red Blood Count 3.86 10^6/ul (4.00-5.40); Red Cell Distribution Width 15 % (10.5-15); White Blood Count 9.7 10^3/ul (3.5-10.8)
[2018-11-25 03:55] LABS: Activated Partial Thrombo Time 27.8 seconds (26.0-36.3); INR 1.04 (0.77-1.02)
[2018-11-25 04:03] LABS: Albumin 3.8 g/dL (3.2-5.2); BUN/Creatinine Ratio 26.2 (8-20); C Reactive Protein 8.92 mg/L (<8.01); Calcium 9.6 mg/dL (8.6-10.3); EGFR African American 78.9 (>60); EGFR Non-African American 65.2 (>60); Globulin 3.7 g/dL (2-4); Potassium 4.2 mmol/L (3.5-5.0); Total Bilirubin 0.5 mg/dL (0.2-1.0); Total Protein 7.5 g/dL (6.4-8.9)
[2018-11-25 04:06] LABS: Digoxin 0.9 ng/ml (0.8-2.0)
[2018-11-25] MEDS ORDERED: Iohexol 300* (CONTRAST) 10 ML SDV IV ONE (04:21)
[2018-11-25 04:58] LABS: Troponin I 0.02 ng/mL (<0.04)
[2018-11-25 05:20] LABS: Urine Appearance Cloudy; Urine Bacteria Absent (Absent); Urine Bilirubin Negative (Negative); Urine Blood Negative (Negative); Urine Color Yellow; Urine Glucose Negative (Negative); Urine Ketones Negative (Negative); Urine Nitrite Negative (Negative); Urine Protein Negative (Negative); Urine Red Blood Cell Absent (Absent); Urine Specific Gravity 1.016 (1.010-1.030); Urine Urobilinogen Negative (Negative); Urine White Blood Cell 3+(>20/hpf) (Absent)
[2018-11-25] MEDS ORDERED: Levofloxacin TAB* 500 MG PO ONE (05:27)
[2018-11-25] MEDS ORDERED: Bisacodyl SUPP* 10 MG SUPP PR ONE (05:28)
[2018-11-25] MEDS ORDERED: Magnesium CITRATE* 300 ML BTL PO ONE (05:28)
[2018-11-25 07:04] VITALS: BP 119/63
== END 2018-11-25 07:09 | disposition home or self-care (01) ==
LOC: ED 02:13
DX: K59.00 Constipation, unspecified (principal); N39.0 Urinary tract infection, site not specified; I48.91 Unspecified atrial fibrillation; F03.90 Unspecified dementia, unspecified severity, without behavioral disturbance, psychotic disturbance, mood disturbance, and anxiety; Z87.891 Personal history of nicotine dependence; M41.9 Scoliosis, unspecified; Z79.82 Long term (current) use of aspirin; I25.10 Atherosclerotic heart disease of native coronary artery without angina pectoris; Z86.718 Personal history of other venous thrombosis and embolism; Z79.01 Long term (current) use of anticoagulants
CPT/HCPCS: 36415; 71260; 74177; 80053; 80162; 81003; 81015; 82150; 83605; 83690; 83735; 84484; 85025; 85610; 85730; 86140; 87040; 87077; 87086; 87186; 93005; 96361; 96372; 96374; 99284; A9270-GY; J1630; J2060; Q9967

== ENCOUNTER 2018-11-25 14:46 | Inpatient (IN) | payer MEDICARE ==
--- NOTE | 2018-11-25 15:07 | ED ---
Altered Mental Status - HPI Summary HPI Summary: An 87 y/o M with dementia presents to ED with c/o increasing confusion onset today. Patient was seen at [facility] last night and released this AM with a UTI and constipation. He was given stool softener and ABX but has not taken either yet. Per , pt was seated on the bed this AM and before she could get to his side , he fell to the floor, hitting his head on a wooden chair on the way down. She called EMS who evaluated the patient at home. The called EMS again because of the patient's increasing confusion, and that is when he was brought to the ED for evaluation. His says he has not eaten or drank anything since he was released this AM. He takes a daily baby aspirin. The Warfarin was stopped approx 1 month ago. He is not on a narcotic medication. - History Of Current Complaint Stated Complaint: WEAKNESS/FALL Time Seen by Provider: 11/25/18 14:49 Hx Obtained From: Patient, Family/Server Administrator - , EMS Onset/Duration: Still Present Timing: Constant, Lasting Hours Character: Confusion Aggravating Factor(s): Trauma - fall, hit head - Allergies/Home Medications Allergies/Adverse Reactions: Allergies Allergy/AdvReac Type Severity Reaction Status Date / Time simvastatin AdvReac See Comment Verified 02/10/18 11:25 Home Medications: Home Medications Cholecalciferol (Vitamin D3) [Vitamin D3] 1,000 unit PO DAILY 11/25/18 [History Confirmed 11/25/18] PMH/Surg Hx/FS Hx/Imm Hx Previously Healthy: No Endocrine/Hematology History: Reports: Hx Anticoagulant Therapy Denies: Hx Diabetes - Per Cardiovascular History: Reports: Hx Coronary Artery Disease, Hx Deep Vein Thrombosis - July 2017, Hx Embolism - PE july 2017, Hx Hypercholesterolemia, Hx Hypertension Respiratory History: Reports: Hx Pneumonia History: Denies: Hx Benign Prostatic Hyperplasia, Hx Renal Disease - Per Musculoskeletal History: Reports: Hx Arthritis, Hx Osteoporosis, Hx Scoliosis Sensory History: Reports: Hx Cataracts - BILATERAL, Hx Contacts or Glasses - GLASSES, Hx Hearing Aid, Hx Hearing Problem Opthamlomology History: Reports: Hx Cataracts - BILATERAL, Hx Contacts or Glasses - GLASSES Neurological History: Reports: Hx Dementia, Other Neuro Impairments/Disorders - MILD DEMENTIA, MEMORY LOSS - Surgical History Surgery Procedure, Year, and Place: 1989 ANGIOPLASTY, [facility]. 1993 SURGERY FOR NEARLY DETATCHED RIGHT RETINA, [facility] Hx Anesthesia Reactions: Yes - CONFUSED AFTER RETINA SURGERY Infectious Disease History: Unable to Obtain/Confirm Infectious Disease History: Reports: Hx Hepatitis Denies: Traveled Outside the [place] in Last 30 Days - Family History Known Family History: Negative: Other - negative malignant hypothermia, negative adverse reacton to anesthesia Family History: No FHx anesthesia reaction - Social History Occupation: Retired Lives: With Family Alcohol Use: None Alcohol Amount: wine 1-2 glasses Hx Substance Use: No Substance Use Type: Reports: None Hx Tobacco Use: No Smoking Status (MU): Former Smoker Review of Systems Negative: Fever, Chills Negative: Erythema Negative: Sore Throat Negative: Chest Pain Negative: Shortness Of Breath, Cough Negative: Abdominal Pain, Vomiting, Nausea Negative: dysuria, hematuria Negative: Myalgia, Edema Negative: Rash Neurological: Other - pos: confusion. neg: dizziness All Other Systems Reviewed And Are Negative: Yes Physical Exam - Summary Physical Exam Summary: Constitutional: Well-developed, Well-nourished, Alert, Cooperative Skin: Warm, Dry HENT: Normocephalic; No Racoons eyes; No chavez's sign; No abrasion; No contusion; No hemotympanum; No maxilla facial tenderness or instability; Dentition are smooth; No dental trauma; No trismus. Dry oral mucosa. Eyes: EOM normal, pin point pupils Neck: Trachea is midline. No stridor; No JVD; No step off; No posterior cervical spine tenderness Cardio: Rhythm regular, rate normal Heart sounds normal; Intact distal pulses; The pedal pulses are 2+ and symmetric. Radial pulses are 2+ and symmetric. Pulmonary/Chest wall: Effort normal; Breath sounds normal; Equal chest rise; No flail segment; No rib tenderness; No sternal tenderness Abd: Soft, Appearance normal. No distension; No tenderness; No palpable pulsatile mass; No Cullens sign; No Lyon-Turners sign Musculoskeletal: Full ROM and no tenderness at hips, ankles, shoulders, elbows and knees; No joint swelling; No vertebral body tenderness; No paraspinal tenderness; No step off or deformity of the spine; Pelvis is stable to lateral compression and rock Neuro: Alert, Oriented x3, Strength 5/5 all extremities. : No blood at urethral meatus Psych: Mood and affect Normal Triage Information Reviewed: Yes Vital Signs On Initial Exam: Initial Vitals Temp Pulse Resp BP Pulse Ox 97.6 F 113 14 137/85 98 11/25/18 14:52 11/25/18 14:52 11/25/18 14:52 11/25/18 14:52 11/25/18 14:52 Vital Signs Reviewed: Yes - Avalon Coma Scale Glascow Coma Scale Comments: GCS: 14 Diagnostics - Vital Signs Vital Signs Temp Pulse Resp BP Pulse Ox 11/25/18 14:52 97.6 F 113 14 137/85 98 - Laboratory Result Diagrams: 11/25/18 15:24 11/25/18 15:24 Lab Statement: Any lab studies that have been ordered have been reviewed, and results considered in the medical decision making process. - CT C-SPINE CT Interpretation Completed By: Radiologist Summary of CT Findings: IMPRESSION: 1. OSTEOPENIA. 2. DEGENERATIVE DISC DISEASE AND OSTEOARTHRITIS. 3. NO ACUTE OSSEOUS INJURY TO THE CERVICAL SPINE. ED provider has reviewed this report. BRAIN CT CT Interpretation Completed By: Radiologist Summary of CT Findings: IMPRESSION: NO ACUTE INTRACRANIAL PATHOLOGY. DIFFUSE INVOLUTIONAL CHANGE WITH CHRONIC SMALL VESSEL ISCHEMIC CHANGES. ED provider has reviewed this report. - EKG 14:55 Cardiac Rate: Tachycardia - 113 bpm Summary of EKG Findings: Ectopic atrial tachycardia at 113 bpm. No STEMI. PVCs. Altered Mental Statu Course/Dx - Course Course Of Treatment: Pt is an 87 y/o M with dementia and known UTI, constipation presenting with increasing confusion onset today s/p fall this AM. Patient was seen at [facility] last night and released this AM. His says he has not eaten or drank anything since he was released this AM. He takes a daily baby aspirin. The Warfarin was stopped approx 1 month ago. He is not on a narcotic medication. Consulted with Dr. Ivy, hospitalist, who will accept pt. - Diagnoses Provider Diagnoses: UTI (urinary tract infection), Delirium, Altered mental status - Provider Notifications Discussed Care Of Patient With: Awa Ivy - hospitalist Time Discussed With Above Provider: 17:55 Instructed by Provider To: Admit As Inpatient - Critical Care Time Critical Care Time: 30-74 min - 35 mins CC time Discharge - Sign-Out/Discharge Documenting (check all that apply): Patient Departure - ADMIT Patient Received Moderate/Deep Sedation with Procedure: No - Discharge Plan Condition: Stable Disposition: ADMITTED TO [facility] Referrals: Nicolasa Garner MD [Primary Care Provider] - - Attestation Statements Document Initiated by Scribe: Yes Documenting Scribe: Sacha Gonzales Provider For Whom Scribe is Documenting (Include Credential): Dr. Antonio Wooten MD Scribe Attestation: I, lou Saeedibed for Dr. Antonio Wooten MD on 11/25/18 at 1908. Status of Scribe Document: Ready
[2018-11-25] MEDS: NS 0.9% 1000 ML** 2,000 ML IV ONE ×2 (15:16→15:17)
[2018-11-25] MEDS ORDERED: cefTRIAXone(*) 1 GM in NS 0.9% 50 ML* 50 ML IVPB ONE (15:32)
[2018-11-25 15:37] LABS: ABS Basophils 0.1 10^3/ul (0-0.2); ABS Eosinophils 0.2 10^3/ul (0-0.6); ABS Lymphocytes 2.1 10^3/ul (1.0-4.8); ABS Monocytes 1.5 10^3/ul (0-0.8); ABS Neutrophils 6.8 10^3/ul (1.5-7.7); ABS Nucleated RBC 0 10^3/ul; Eosinophil % 1.8 %; Hematocrit 36 % (42-52); Hemoglobin 12.1 g/dl (14.0-18.0); Lymphocyte % 19.8 %; Mean Corpuscular HGB Conc 33 g/dl (31-36); Mean Corpuscular Hemoglobin 31 pg (27-31); Mean Corpuscular Volume 93 fL (80-94); Mean Platelet Volume 7.8 fL (7.4-10.4); Nucleated Red Blood Cells % 0; Platelet Count 279 10^3/ul (150-450); Red Blood Count 3.89 10^6/ul (4.00-5.40); Red Cell Distribution Width 15 % (10.5-15); White Blood Count 10.6 10^3/ul (3.5-10.8)
[2018-11-25 15:58] LABS: Troponin I 0.01 ng/mL (<0.04)
[2018-11-25 16:13] LABS: ALT 9 U/L (7-52); AST 17 U/L (13-39); Albumin 3.8 g/dL (3.2-5.2); Alkaline Phosphatase 76 U/L (34-104); Anion Gap 8 mmol/L (2-11); BUN/Creatinine Ratio 23.4 (8-20); Blood Urea Nitrogen 22 mg/dL (6-24); CO2 Carbon Dioxide 25 mmol/L (22-32); Calcium 9.2 mg/dL (8.6-10.3); Chloride 108 mmol/L (101-111); EGFR African American 91.6 (>60); EGFR Non-African American 75.7 (>60); Globulin 3.7 g/dL (2-4); Glucose 101 mg/dL (70-100); Potassium 3.9 mmol/L (3.5-5.0); Sodium 141 mmol/L (135-145); Total Protein 7.5 g/dL (6.4-8.9)
[2018-11-25 16:43] LABS: TSH (Thyroid Stimulating Horm) 5.17 mcIU/mL (0.34-5.60)
[2018-11-25 17:05] LABS: Alcohol < 10 mg/dL (<10)
[2018-11-25] MEDS ORDERED: LORazepam INJ* 2 MG/ML 1 ML VIAL IV PUSH ONE ×2 (17:18→18:44)
[2018-11-25] MEDS ORDERED: LORazepam INJ* 2 MG/ML 1 ML VIAL ONE (17:19)
[2018-11-25] MEDS ORDERED: Haloperidol INJ IV/IM* 5 MG/ML AMP IV SLOW PU ONE (18:44)
[2018-11-25] MEDS ORDERED: Al Hydrox/Mg Hydrox/Simet LIQ* 30 ML UDC PO PRN (21:43)
[2018-11-25] MEDS ORDERED: Ondansetron INJ* 2 MG/ML VIAL IV PRN (21:43)
[2018-11-25] MEDS: NS 0.9% 1000 ML** 1,000 ML IV SCH (23:25)
[2018-11-25] MEDS: Polyethylene Glycol 3350* 17 GM PACKET PO SCH (23:28)
[2018-11-25] MEDS: Acetaminophen TAB* 325 MG PO PRN (23:29)
[2018-11-25] MEDS: Senna TAB PO SCH (23:29)
[2018-11-25] MEDS: Docusate CAP* 100 MG PO SCH (23:29)
[2018-11-25] MEDS: Latanoprost 0.005%* 2.5 ml BTL BOTH EYES SCH (23:30)
--- NOTE | 2018-11-26 01:28 | HP ---
CC: Dr. Garner * HISTORY AND PHYSICAL: DATE OF ADMISSION: 11/25/18 TIME OF EVALUATION: 2100. PRIMARY CARE PHYSICIAN: Dr. Garner. CHIEF COMPLAINT: Weakness and fall. HISTORY OF PRESENT ILLNESS: This is an 87-year-old male with a past medical history of silrlzzr-wy-[id number] dementia, who presented initially to the emergency room in the early hours of 11/25/18 for complaints of weakness. According to the , he was diagnosed with constipation and UTI at that time and was sent home with an antibiotic and liquid mag citrate. She was concerned about his discharge at that time. She tried to give him the antibiotic and liquid, but he was so weak and lethargic that she could not give it to him. She thought he would rest and around noon today, he wanted to use the bathroom, she went to go get the commode and during that time, he fell and hit the left side of his head and shoulder. She called EMS, they evaluated him. They felt that he seemed okay and did not need further evaluation. Because of how weak he was, the was concerned that she was not going to be able to care for him and this was not a safe disposition for him to stay at home with his increase in weakness and confusion. She called the PCP and they said to call EMS again because the was not even able to get him in her car, so EMS brought him again for the second time. The states normally he has some bowel incontinence off and on. He is normally not incontinent of urine, but he was today. She states he does ambulate, currently he cannot ambulate due to how weak he is. He had a hospitalization back in July in [place] for a kidney stone, required a nephrostomy tube and apparently he had bladder cancer at that time as well and he was in skilled nursing after that. He has declined rather significantly since then, but she was able to leave him for short periods of time, but he was not able to express his needs. He has had a decrease in appetite. She denies any choking or coughing on his food. No vomiting, no diarrhea. She states he had a large bowel movement on 11/24/18, but when she brought him in initially on 11/24/18, she was concerned that he was complaining of abdominal pain, he appeared to be grimacing, but again he is not able to express his needs. On my encounter, the is very upset with the healthcare assistance and she hates everybody and feels that he has not been well taken care of. The patient appears restless, delirious, and unable to answer any questions appropriately, thus review of systems is limited. In the emergency room, the patient had labs, imaging. He was given a gram of ceftriaxone, 2.5 mg of Haldol, 3 mg of Ativan, and 2 L of fluid, and referred to the hospitalist service for further evaluation. PAST MEDICAL HISTORY: 1. History of what appears to be advanced dementia. 2. History of paroxysmal atrial fibrillation. 3. Hypertension. 4. Coronary artery disease. 5. History of DVT and PE in 2017. 6. History of hyperlipidemia. 7. Hypertension. 8. History of BPH with recent hospitalization for kidney stone. 9. History of arthritis. 10. Osteoporosis. 11. Scoliosis. MEDICATIONS: 1. Vitamin D3 1000 units daily. 2. Levaquin 500 mg p.o. daily. Of note, the was not able to give this as this was not started; this was initiated early this morning on his initial ER visit. 3. Latanoprost 0.005% 1 drop both eyes in the evening. 4. Digoxin 125 mcg p.o. daily. 5. Vitamin B12 500 mcg p.o. daily. ALLERGIES: SIMVASTATIN. FAMILY HISTORY: Reviewed and noncontributory. SOCIAL HISTORY: The patient lives with his , who mainly takes care of him. Normally, he does ambulate. He is not able to express his needs. He needs help with his ADLs. He is a remote smoker 50 years ago. No alcohol or illicit drug use. Code status: He does have a MOLST form confirmed. He is a DNR/DNI with a trial of noninvasive ventilation. REVIEW OF SYSTEMS: Unable to obtain due to patient's acute delirium. PHYSICAL EXAMINATION GENERAL: The patient is restless and appears delirious, not able to answer questions appropriately. VITAL SIGNS: Temp is 97.6, pulse rate is 120, respiratory rate is 17, oxygen saturation 99% on room air, blood pressure is 120/81. HEENT: Head normocephalic. Pupils equal are equal and reactive, anicteric. Oropharynx: Mucous membranes are dry. NECK: Supple. RESPIRATORY: Diminished breath sounds. No wheezes, rhonchi, or rales. CARDIAC: Tachycardic. Soft systolic murmurs heard throughout. ABDOMEN: Positive bowel sounds, soft, nontender, nondistended. EXTREMITIES: No clubbing, cyanosis, or edema. He appears cachectic, malnourished. NEUROLOGIC: He is alert and oriented x0. Unable to follow commands, but moving all extremities. DIAGNOSTIC STUDIES/LAB DATA: White count 10.6, hemoglobin 12, hematocrit 36, platelets 279. INR is 1.04. Carbon monoxide screen less than 4. Sodium 141, potassium 3.9, chloride 108, bicarb 25, BUN 22, creatinine 0.94, glucose 101, lactic acid 1.9. Troponin is 0.01. Ammonia level 44. CRP from 11/24/18 is 8.92. His UA from earlier this morning shows +3 leuks, +3 whites, negative bacteria. Toxicology: Dig level is 1, alcohol level is less than 10. Radiographic data: Head CT: No acute intracranial pathology, diffuse involutional change with chronic small vessel ischemic change. Cervical spine CT: Osteopenia, degenerative disk disease, and osteoarthritis. No acute osseous injury to the cervical spine. EKG shows atrial flutter. Chest, abdomen, and pelvis CT from 11/25/18 early this morning, on his initial ER visit shows large fecal colonic diverticulosis, no evidence of acute diverticulitis, left bladder diverticulum, enlarged prostate gland with coarse calcifications, partially visualized high position of the left testicle just below the inguinal canal, 2 adjacent complex left renal cysts measuring 4.5 and 1.3 respectively. ASSESSMENT AND PLAN: This is an 87-year-old with past medical history of dementia, who presents to the emergency room with worsening altered mental status and weakness with a fall. Altered mental status and weakness. Assessment: The patient now appears to be delirious. The etiology is unclear. I am not convinced this is urinary tract infection. He has no white count, no fever, and his UA shows no bacteria. He did get a dose of ceftriaxone, can continue thus far now until the culture returns from his initial visit. It is possible that he does have underlying constipation, which resulted in his delirium. There is a question of urinary retention that may be contributing to this as well. His electrolytes, his labs are all unremarkable. It seems the patient has had a rather rapid decline in his dementia since his hospitalization in [place] in October, but there does not seem to be an inciting event that may have contributed to his acute delirium other than lack of sleep since his initial ER visit early this morning and now he returns to the emergency room again likely worsening his dementia causing from as well. Plan: We will admit him to [address] [place] [address]. I am going to start him on an aggressive bowel regimen. As mentioned, I will continue with ceftriaxone for now until his urine culture comes back. I will order a bladder scan. Consult PT. CHRONIC MEDICAL PROBLEMS: We will continue his home medications as prescribed. FEN: Regular diet. We will also consult nutrition to help with supplementation. Code status. The patient is a DNR/DNI. PATIENT TIME: Greater than 60 minutes was spent doing the history and physical , more than half the time spent in direct patient contact. [id number]/CPS #: [id number] JOHN
[2018-11-26] MEDS ORDERED: Haloperidol INJ IV/IM* 5 MG/ML AMP ONE (03:53)
[2018-11-26] MEDS: Haloperidol INJ IV/IM* 5 MG/ML AMP IV SLOW PU PRN ×2 (03:59→15:17)
[2018-11-26] MEDS: Heparin VIAL(*) 5000 UNITS/ML VIAL (FIVE THOUSAND) SUBCUT SCH ×2 (05:07→15:17)
[2018-11-26] MEDS: Polyethylene Glycol 3350* 17 GM PACKET PO SCH (10:48)
[2018-11-26] MEDS: Docusate CAP* 100 MG PO SCH (10:48)
[2018-11-26] MEDS: Cyanocobalamin TAB* 500 MCG PO SCH (10:48)
[2018-11-26] MEDS: Senna TAB PO SCH ×2 (10:48→23:48)
[2018-11-26] MEDS: Digoxin TAB* 0.125 MG PO SCH (10:48)
--- NOTE | 2018-11-26 11:19 | PN ---
Subjective Date of Service: 11/26/18 Interval History: Pt continues to have weakness and altered mental status. Spoke with , as pt is not communicative. states that pt had extended hospitalization in July lasting approximately 6 weeks. Since, he has progressively gotten worse. Prior to admission yesterday, he was able to get up on his own and walked with a shuffling gait. he was occasionally incontinent of bowel for appx 1 month. He was able to use the toilet to urinate, but had to be directed, as he often "forgot" where the toilet was. Yesterday, he developed weakness and fell while attempting to get to the bedside commode. Pt's is frustrated and concerned ; she feels he is no longer able to care for him. He is occasionally combative with her or other people. He has difficulty communicating his needs and does not speak clearly, mumbling frequently or making little sense with what he is saying. Pt has h/o AF, for which he was on Digoxin, diltiazem and another medication, which she does not remember and is not on D/C summary from 06/2018. He was also on Aricept. Pt was having syncopal episodes and was bradycardic during his hospital stay in [facility] in July. Diltiazem and Aricept were both d/c'd d/t side effects of bradycardia. Since, pt has not been on any med for rate control of AF, except Dig. Objective Active Medications: Acetaminophen (Tylenol Tab*) 650 mg PO Q4H PRN Al Hydrox/Mg Hydrox/Simethicone (Maalox Plus*) 30 ml PO Q6H PRN Cyanocobalamin (Vitamin B12 Tab*) 500 mcg PO DAILY PRISCILLA Digoxin (Lanoxin Tab*) 0.125 mg PO DAILY PRISCILLA Docusate Sodium (Colace Cap*) 100 mg PO BID PRISCILLA Haloperidol Lactate (Haldol Inj Iv/Im*) 5 mg IV SLOW PU Q6H PRN Heparin Sodium (Porcine) (Heparin Vial(*)) 5,000 units SUBCUT Q8HR PRISCILLA Sodium Chloride (Ns 0.9% 1000 Ml) 1,000 mls @ 75 mls/hr IV PER RATE PRISCILLA Ceftriaxone Sodium 1 gm/ (Sodium Chloride) 50 mls @ 200 mls/hr IVPB Q24H PRISCILLA Latanoprost (Xalatan 0.005%*) 1 drop BOTH EYES QPM PRISCILLA Ondansetron HCl (Zofran Inj*) 4 mg IV Q4H PRN Polyethylene Glycol/Electrolytes (Miralax*) 17 gm PO DAILY PRISCILLA Senna (Senokot Tab*) 1 tab PO BID PRISCILLA Vital Signs: Temp Pulse Resp BP Pulse Ox 97.8 F 118 19 118/65 88 11/26/18 03:51 11/26/18 03:51 11/26/18 03:51 11/26/18 03:51 11/26/18 03:51 Oxygen Devices in Use Now: None Appearance: Pt is sitting at edge of bed, regularly trying to get out of bed; he has 1:1 observation present. He appears thin and frail and is fidgiting. He does not communicate with me when I talk to him. He is uncooperative, and, therefore, difficult to evaluate. Eyes: No Scleral Icterus Ears/Nose/Mouth/Throat: Mucous Membranes Moist, - - Pt has food from breakfast in his mouth still. Neck: NL Appearance and Movements; NL JVP, Trachea Midline Respiratory: Symmetrical Chest Expansion and Respiratory Effort, Clear to Auscultation - Not taking deep inhalations Cardiovascular: NL Sounds; No Murmurs; No JVD, RRR, No Edema Abdominal: NL Sounds; No Tenderness; No Distention, No Hepatosplenomegaly Lymphatic: No Cervical Adenopathy Extremities: No Edema, No Clubbing, Cyanosis Neurological: - - Unable to asses strength, sensation, gait, as pt is noncommunicative at this point. Pt has a resting tremor. Result Diagrams: 11/25/18 15:24 11/25/18 15:24 Assess/Plan/Problems-Billing Assessment: Pt is an 87yom with PMHx dementia, AF, HTN, CAD, HLD, BPH, OA, scoliosis who is admitted for evaluation of weakness and altered mental status. - Patient Problems (1) Altered mental status Comment: -Pt has tachycardia, tachypnea, confusion- pt meets SIRS criteria with unclear source of infection -UA shows +LE, -nitrates; will continue to treat with ceftriaxone (DAY 2) for ? UTI until cx returns -Dig level WNL, negative ETOH, negative CO, electrolytes WNL, CT CAP shows nothing acute- this is likely progression of dementia -Swallow eval ordered (2) PAF (paroxysmal atrial fibrillation) Comment: -HR elevated -Start tele -Start metoprolol 12.5 bid (3) HTN (hypertension) Comment: -SBP b/t 117-173 -Metoprolol 12.5 BID ordered (4) Constipation SNOMED Code(s): 09941318 Comment: -Continue bowel regimen (5) DVT prophylaxis Comment: -Heparin (6) DNR (do not resuscitate) Comment: Status and Disposition: Inpatient. Discharge when stable.
[2018-11-26] MEDS: NS 0.9% 1000 ML** 1,000 ML IV SCH (14:30)
[2018-11-26] MEDS: cefTRIAXone(*) 1 GM in NS 0.9% 50 ML* 50 ML IVPB SCH (16:55)
[2018-11-26] MEDS: Latanoprost 0.005%* 2.5 ml BTL BOTH EYES SCH (17:41)
[2018-11-26] MEDS ORDERED: Metoprolol Tartrate TAB* 25 MG PO SCH (21:00)
[2018-11-26] MEDS ORDERED: Docusate LIQ* 100 MG/10 ML UDC PO PRN (21:00)
[2018-11-26] MEDS: Metoprolol Tartrate TAB* 25 MG PO SCH (23:49)
[2018-11-27] MEDS: Heparin VIAL(*) 5000 UNITS/ML VIAL (FIVE THOUSAND) SUBCUT SCH ×4 (00:03→21:43)
[2018-11-27] MEDS: NS 0.9% 1000 ML** 1,000 ML IV SCH ×2 (03:48→16:26)
[2018-11-27] MEDS: Senna TAB PO SCH ×2 (08:07→21:43)
[2018-11-27] MEDS: Digoxin TAB* 0.125 MG PO SCH (08:07)
[2018-11-27] MEDS: Polyethylene Glycol 3350* 17 GM PACKET PO SCH (08:07)
[2018-11-27] MEDS: Cyanocobalamin TAB* 500 MCG PO SCH (08:07)
[2018-11-27] MEDS: Metoprolol Tartrate TAB* 25 MG PO SCH ×2 (08:08→21:43)
--- NOTE | 2018-11-27 09:48 | PN ---
Subjective Date of Service: 11/27/18 Interval History: Mr. Vizcaino is sleeping during my examination. He awakens with physical exam and pushes me away. His reports that he does not recognize her at baseline , at least for the past 6 months. He is not able to offer meaningful complaint today. Objective Active Medications: Acetaminophen (Tylenol Tab*) 650 mg PO Q4H PRN Al Hydrox/Mg Hydrox/Simethicone (Maalox Plus*) 30 ml PO Q6H PRN Cyanocobalamin (Vitamin B12 Tab*) 500 mcg PO DAILY PRISCILLA Digoxin (Lanoxin Tab*) 0.125 mg PO DAILY PRISCILLA Docusate Sodium (Colace Liq*) 100 mg PO BID PRN Haloperidol Lactate (Haldol Inj Iv/Im*) 5 mg IV SLOW PU Q6H PRN Heparin Sodium (Porcine) (Heparin Vial(*)) 5,000 units SUBCUT Q8HR PRISCILLA Sodium Chloride (Ns 0.9% 1000 Ml) 1,000 mls @ 75 mls/hr IV PER RATE PRISCILLA Ceftriaxone Sodium 1 gm/ (Sodium Chloride) 50 mls @ 200 mls/hr IVPB Q24H PRISCILLA Latanoprost (Xalatan 0.005%*) 1 drop BOTH EYES QPM PRISCILLA Metoprolol Tartrate (Lopressor Tab*) 12.5 mg PO Q12HR PRISCILLA Ondansetron HCl (Zofran Inj*) 4 mg IV Q4H PRN Polyethylene Glycol/Electrolytes (Miralax*) 17 gm PO DAILY PRISCILLA Senna (Senokot Tab*) 1 tab PO BID [facility] Vital Signs: Temp Pulse Resp BP Pulse Ox 97.5 F 112 16 153/82 96 11/27/18 07:20 11/27/18 08:07 11/27/18 07:20 11/27/18 07:20 11/27/18 07:20 Oxygen Devices in Use Now: Nasal Cannula Appearance: Male lying in bed in NAD, at bedside Eyes: No Scleral Icterus Ears/Nose/Mouth/Throat: Mucous Membranes Moist Neck: Trachea Midline Respiratory: Symmetrical Chest Expansion and Respiratory Effort, Clear to Auscultation Cardiovascular: NL Sounds; No Murmurs; No JVD, No Edema Abdominal: NL Sounds; No Tenderness; No Distention Lymphatic: No Cervical Adenopathy Extremities: No Edema Skin: No Rash or Ulcers Neurological: NL Muscle Strength and Tone, - - Awakens to voice, pushes away during examination, spontaneously moves all extremities Nutrition: Taking PO's - Nutrition: Malnutrition Diagnosis/Plan Malnutrition Assessment by Registered Dietitian: Malnutrition Assessment Clinical Characteristics Acute,Severe Malnutrition Assessment: - Moderate temporal and clavicle muscle wasting Criteria - 10% wt loss x past month (per pt's ) Malnutrition Assessment: As able, will send Ensure Enlive w/ meals. 350 Interventions kcals, 20 grams protein. Malnutrition Assessment: Goals 1. Ultimately, intake will be adequate to promote wt repletion and maintain hydration. Result Diagrams: 11/25/18 15:24 11/25/18 15:24 Microbiology and Other Data: . Assess/Plan/Problems-Billing Assessment: Ms. Vizcaino is an 87yo male with PMH dementia, AF, HTN, CAD, HLD, BPH, OA, scoliosis who is admitted for evaluation of weakness and altered mental status. - Patient Problems (1) Altered mental status Comment: - Suspect toxic metabolic encephalopathy, perhaps related to UTI, causing delirium though patient has been steadily declining for some time. - Pt had tachycardia, tachypnea, confusion- pt meets SIRS criteria with unclear source of infection - UA shows +LE, -nitrates; will continue to treat with ceftriaxone (DAY 3) for ? UTI until cx returns - Dig level WNL, negative ETOH, negative CO, electrolytes WNL, CT CAP shows nothing acute - Swallow eval appreciated, pureed with thin liquids (2) Dementia Comment: - Contiue supportive care and aricept (3) PAF (paroxysmal atrial fibrillation) Comment: - HR 110s - Increase metoprolol 25 bid, continue digoxin (4) HTN (hypertension) Comment: - SBP 110-170 - Metoprolol increased to 25 BID (5) Constipation Comment: -Continue bowel regimen (6) DNR (do not resuscitate) Comment: (7) DVT prophylaxis Comment: -Heparin Status and Disposition: Inpatient. Discharge when stable, may need SNF or additional support services
[2018-11-27] MEDS: Haloperidol INJ IV/IM* 5 MG/ML AMP IV SLOW PU PRN ×2 (16:16→21:38)
[2018-11-27] MEDS: cefTRIAXone(*) 1 GM in NS 0.9% 50 ML* 50 ML IVPB SCH (16:25)
[2018-11-27] MEDS: Latanoprost 0.005%* 2.5 ml BTL BOTH EYES SCH (17:34)
[2018-11-28] MEDS: Acetaminophen TAB* 325 MG PO PRN ×2 (05:19→19:56)
[2018-11-28] MEDS: Haloperidol INJ IV/IM* 5 MG/ML AMP IV SLOW PU PRN (05:19)
[2018-11-28] MEDS: NS 0.9% 1000 ML** 1,000 ML IV SCH (05:38)
[2018-11-28] MEDS: Heparin VIAL(*) 5000 UNITS/ML VIAL (FIVE THOUSAND) SUBCUT SCH ×3 (05:38→22:58)
[2018-11-28] MEDS ORDERED: Iohexol 350* (CONTRAST) 500 ML MDV IV ONE (09:09)
[2018-11-28] MEDS: Cyanocobalamin TAB* 500 MCG PO SCH (10:41)
[2018-11-28] MEDS: Senna TAB PO SCH ×2 (10:41→19:58)
[2018-11-28] MEDS: Polyethylene Glycol 3350* 17 GM PACKET PO SCH (10:41)
--- NOTE | 2018-11-28 11:51 | PN ---
Subjective Date of Service: 11/28/18 Interval History: Mr. Phelps is not able to offer complaint today but he appears in no acute distress. Objective Active Medications: Acetaminophen (Tylenol Tab*) 650 mg PO Q4H PRN Al Hydrox/Mg Hydrox/Simethicone (Maalox Plus*) 30 ml PO Q6H PRN Digoxin (Lanoxin Tab*) 0.125 mg PO DAILY PRISCILLA Docusate Sodium (Colace Liq*) 100 mg PO BID PRN Haloperidol Lactate (Haldol Inj Iv/Im*) 5 mg IV SLOW PU Q6H PRN Heparin Sodium (Porcine) (Heparin Vial(*)) 5,000 units SUBCUT Q8HR PRISCILLA Sodium Chloride (Ns 0.9% 1000 Ml) 1,000 mls @ 75 mls/hr IV PER RATE PRISCILLA Ceftriaxone Sodium 1 gm/ (Sodium Chloride) 50 mls @ 200 mls/hr IVPB Q24H PRISCILLA Latanoprost (Xalatan 0.005%*) 1 drop BOTH EYES QPM PRISCILLA Metoprolol Tartrate (Lopressor Tab*) 25 mg PO Q12HR PRISCILLA Ondansetron HCl (Zofran Inj*) 4 mg IV Q4H PRN Polyethylene Glycol/Electrolytes (Miralax*) 17 gm PO DAILY PRISCILLA Senna (Senokot Tab*) 1 tab PO BID [facility] Vital Signs: Temp Pulse Resp BP Pulse Ox 98.9 F 98 16 115/65 94 11/28/18 07:50 11/28/18 07:50 11/28/18 08:00 11/28/18 07:50 11/28/18 07:50 Oxygen Devices in Use Now: Nasal Cannula Appearance: Thin elderly male lying in bed in NAD Eyes: No Scleral Icterus Ears/Nose/Mouth/Throat: Mucous Membranes Moist Neck: Trachea Midline Respiratory: Symmetrical Chest Expansion and Respiratory Effort, Clear to Auscultation Cardiovascular: NL Sounds; No Murmurs; No JVD, No Edema Abdominal: NL Sounds; No Tenderness; No Distention Extremities: No Edema Skin: No Rash or Ulcers Neurological: Alert and Oriented x 3, NL Muscle Strength and Tone Nutrition: Taking PO's - Nutrition: Malnutrition Diagnosis/Plan Malnutrition Assessment by Registered Dietitian: Malnutrition Assessment Clinical Characteristics Acute,Severe Malnutrition Assessment: - Moderate temporal and clavicle muscle wasting Criteria - 10% wt loss x past month (per pt's ) Malnutrition Assessment: As able, will send Ensure Enlive w/ meals. 350 Interventions kcals, 20 grams protein. Malnutrition Assessment: Goals 1. Ultimately, intake will be adequate to promote wt repletion and maintain hydration. Result Diagrams: 11/25/18 15:24 11/25/18 15:24 Microbiology and Other Data: . Assess/Plan/Problems-Billing Assessment: Ms. Vizcaino is an 87yo male with PMH dementia, AF, HTN, CAD, HLD, BPH, OA, scoliosis who is admitted for evaluation of weakness and altered mental status. - Patient Problems (1) Altered mental status Comment: - No real improvement, underlying advanced dementia - Ddimer elevated, CTA chest positive for PE, hx of same but off warfarin. Likely related to recent diagnosis of bladder cancer. - Suspect toxic metabolic encephalopathy related to PE and UTI - Pt had tachycardia, tachypnea, confusion- pt met SIRS criteria, due to PE and UTI - Patient's considering comfort care, hold anticoagulation for now (2) UTI (urinary tract infection) Comment: - VRE with multiple resistances to antibiotics - Patient's considering comfort care, requests to hold antibiotics for now (3) Dementia Comment: - Contiue supportive care and aricept (4) PAF (paroxysmal atrial fibrillation) Comment: - HR 110s - Increase metoprolol 25 bid, continue digoxin (5) HTN (hypertension) Comment: - SBP 110-170 - Metoprolol increased to 25 BID (6) Constipation Comment: -Continue bowel regimen (7) DNR (do not resuscitate) Comment: (8) DVT prophylaxis Comment: -Heparin Status and Disposition: Inpatient. patient's strongly considering comfort care. Will place palliative care consult, hopeful for Hospice Residence but is aware may not be available. Considering options for NH placement for Hospice as well.
[2018-11-28] MEDS: Metoprolol Tartrate TAB* 25 MG PO SCH ×2 (13:16→19:58)
[2018-11-28] MEDS: Digoxin TAB* 0.125 MG PO SCH (13:16)
[2018-11-28] MEDS: Latanoprost 0.005%* 2.5 ml BTL BOTH EYES SCH (17:04)
[2018-11-29] MEDS: Haloperidol INJ IV/IM* 5 MG/ML AMP IV SLOW PU PRN (01:58)
[2018-11-29] MEDS: Heparin VIAL(*) 5000 UNITS/ML VIAL (FIVE THOUSAND) SUBCUT SCH (06:33)
[2018-11-29] MEDS: NS 0.9% 1000 ML** 1,000 ML IV SCH ×2 (06:36→19:39)
[2018-11-29] MEDS: Senna TAB PO SCH ×2 (08:01→19:24)
[2018-11-29] MEDS: Metoprolol Tartrate TAB* 25 MG PO SCH ×2 (08:01→19:24)
[2018-11-29] MEDS: Cyanocobalamin TAB* 500 MCG PO SCH (08:01)
[2018-11-29] MEDS: Digoxin TAB* 0.125 MG PO SCH (08:01)
[2018-11-29] MEDS: Polyethylene Glycol 3350* 17 GM PACKET PO SCH (08:06)
--- NOTE | 2018-11-29 12:48 | PN ---
Subjective Date of Service: 11/29/18 Interval History: Mr. Vizcaino is not able to offer any complaint today but appears in no acute distress. Objective Active Medications: Acetaminophen (Tylenol Tab*) 650 mg PO Q4H PRN Al Hydrox/Mg Hydrox/Simethicone (Maalox Plus*) 30 ml PO Q6H PRN Cyanocobalamin (Vitamin B12 Tab*) 500 mcg PO DAILY PRISCILLA Digoxin (Lanoxin Tab*) 0.125 mg PO DAILY PRISCILLA Docusate Sodium (Colace Liq*) 100 mg PO BID PRN Haloperidol Lactate (Haldol Inj Iv/Im*) 5 mg IV SLOW PU Q6H PRN Heparin Sodium (Porcine) (Heparin Vial(*)) 5,000 units SUBCUT Q8HR PRISCILLA Sodium Chloride (Ns 0.9% 1000 Ml) 1,000 mls @ 75 mls/hr IV PER RATE PRISCILLA Latanoprost (Xalatan 0.005%*) 1 drop BOTH EYES QPM PRISCILLA Metoprolol Tartrate (Lopressor Tab*) 25 mg PO Q12HR PRISCILLA Ondansetron HCl (Zofran Inj*) 4 mg IV Q4H PRN Polyethylene Glycol/Electrolytes (Miralax*) 17 gm PO DAILY PRISCILLA Senna (Senokot Tab*) 1 tab PO BID [facility] Vital Signs: Temp Pulse Resp BP Pulse Ox 97.4 F 60 18 111/55 99 11/29/18 11:18 11/29/18 11:18 11/29/18 11:18 11/29/18 11:18 11/29/18 11:18 Oxygen Devices in Use Now: None Appearance: Male lying in bed in NAD Eyes: No Scleral Icterus Neck: Trachea Midline Respiratory: Symmetrical Chest Expansion and Respiratory Effort, Clear to Auscultation Cardiovascular: NL Sounds; No Murmurs; No JVD, No Edema Lymphatic: No Cervical Adenopathy Extremities: No Edema Skin: No Rash or Ulcers Neurological: - - Alert, mumbling, pulling at blankets at times - Nutrition: Malnutrition Diagnosis/Plan Malnutrition Assessment by Registered Dietitian: Malnutrition Assessment Clinical Characteristics Acute,Severe Malnutrition Assessment: - Moderate temporal and clavicle muscle wasting Criteria - 10% wt loss x past month (per pt's ) Malnutrition Assessment: As able, will send Ensure Enlive w/ meals. 350 Interventions kcals, 20 grams protein. Malnutrition Assessment: Goals 1. Ultimately, intake will be adequate to promote wt repletion and maintain hydration. Result Diagrams: 11/25/18 15:24 11/25/18 15:24 Microbiology and Other Data: . Assess/Plan/Problems-Billing Assessment: Ms. Vizcaino is an 87yo male with PMH dementia, AF, HTN, CAD, HLD, BPH, OA, scoliosis who is admitted for evaluation of weakness and altered mental status. - Patient Problems (1) Altered mental status Comment: - No real improvement, underlying advanced dementia - Ddimer elevated, CTA chest positive for PE, hx of same but off warfarin. Likely related to recent diagnosis of bladder cancer. - Suspect toxic metabolic encephalopathy related to PE and UTI - Pt had tachycardia, tachypnea, confusion- pt met SIRS criteria, due to PE and UTI - Patient's opting for comfort care, hospice eval pending (2) UTI (urinary tract infection) Comment: - VRE with multiple resistances to antibiotics - Patient's opting for comfort care (3) Dementia Comment: - Contiue supportive (4) PAF (paroxysmal atrial fibrillation) Comment: - HR 110s - Increase metoprolol 25 bid, continue digoxin (5) HTN (hypertension) Comment: - SBP 110-170 - Metoprolol increased to 25 BID (6) Constipation Comment: -Continue bowel regimen (7) DNR (do not resuscitate) Comment: (8) DVT prophylaxis Comment: - stop prophylaxis, comfort care Status and Disposition: Inpatient. Patient's opting for comfort care. Hospice eval pending.
--- NOTE | 2018-11-29 13:18 | PN ---
Progress Note - Progress Note Date of Service: 11/25/18 Note: Urine culture grew VRE enterococcus Patient is allergic to several medications Per Krista Gill note, is opting for comfort care He is not being treated at this time
--- NOTE | 2018-11-29 16:24 | CONSULT ---
Palliative / Hospice Consult Ordering Provider: Krista Garner - Subjective Code Status: DNR Advance Directives Location: No Advance Directives MOLST Part A Completed: Yes - on chart MOLST Part E Completed:: Yes - on chart - History or Present Illness History or Present Illness: 87 yo male with mod/severe dementia presented to ER with weakness and altered mental status was diagnosed with UTI and constipation and discharged to home came back to ER later after falling. Admitted with altered mental status. PMH bladder ca removed, kidney stone, BPH, paroxysmal afib, HTN, CAD, DVT with PE in 2017, hyperlipidemia, osteoporosis and arthritis. All history is from and medical records. Pt is ex tob user, no etoh and no drug use. EKG showed aflutter, Ct brain showed chronic small vessel ischemic changes. CT cervical spine osteopenia and degenerative disc disease. BUN/Cr 22/.94 egfr 75, lactic acid 1.9, Ca+2 9.2, tprot 7.5, alb 3.8. CTA showed multiple bilateral PE's and diagnosed with VRE. 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 She notes he is incontinent and non ambulatory but does speak some words. FAST scale 7c, KPS 40% PPS 30%. notes he has been declining losing 10 kilos in last 10 months. He is a DNR/DNI with MOLST form on the chart. ER visit 01/27 for illness , 05/29 ER for fall, ER 23hr obv back pain and confusion, 07/07 admitted for kidney stone. Has also been to [facility] and was in [facility] but returned home. No longer feels she can safely care for him at home. Lab Values: Laboratory Last Values WBC 10.6 10^3/ul (3.5-10.8) 11/25/18 15:24 RBC 3.89 10^6/ul (4.00-5.40) L 11/25/18 15:24 Hgb 12.1 g/dl (14.0-18.0) L 11/25/18 15:24 Hct 36 % (42-52) L 11/25/18 15:24 MCV 93 fL (80-94) 11/25/18 15:24 MCH 31 pg (27-31) 11/25/18 15:24 MCHC 33 g/dl (31-36) 11/25/18 15:24 RDW 15 % (10.5-15) 11/25/18 15:24 Plt Count 279 10^3/ul (150-450) 11/25/18 15:24 MPV 7.8 fL (7.4-10.4) 11/25/18 15:24 Neut % (Auto) 63.5 % 11/25/18 15:24 Lymph % (Auto) 19.8 % 11/25/18 15:24 Esmeralda % (Auto) 13.8 % 11/25/18 15:24 Eos % (Auto) 1.8 % 11/25/18 15:24 Baso % (Auto) 1.1 % 11/25/18 15:24 Absolute Neuts (auto) 6.8 10^3/ul (1.5-7.7) 11/25/18 15:24 Absolute Lymphs (auto) 2.1 10^3/ul (1.0-4.8) 11/25/18 15:24 Absolute Monos (auto) 1.5 10^3/ul (0-0.8) H 11/25/18 15:24 Absolute Eos (auto) 0.2 10^3/ul (0-0.6) 11/25/18 15:24 Absolute Basos (auto) 0.1 10^3/ul (0-0.2) 11/25/18 15:24 Absolute Nucleated RBC 0 10^3/ul 11/25/18 15:24 Nucleated RBC % 0 11/25/18 15:24 D-Dimer, Quantitative > 1050 ng/mL (Less Than 230) H 11/27/18 15:38 Carbon Monoxide Screen <4.0 % (<4.0) 11/25/18 16:49 Sodium 141 mmol/L (135-145) 11/25/18 15:24 Potassium 3.9 mmol/L (3.5-5.0) 11/25/18 15:24 Chloride 108 mmol/L (101-111) 11/25/18 15:24 Carbon Dioxide 25 mmol/L (22-32) 11/25/18 15:24 Anion Gap 8 mmol/L (2-11) 11/25/18 15:24 BUN 22 mg/dL (6-24) 11/25/18 15:24 Creatinine 0.94 mg/dL (0.67-1.17) 11/25/18 15:24 Est GFR ( Amer) 91.6 (>60) 11/25/18 15:24 Est GFR (Non-Af Amer) 75.7 (>60) 11/25/18 15:24 BUN/Creatinine Ratio 23.4 (8-20) H 11/25/18 15:24 Glucose 101 mg/dL (70-100) H 11/25/18 15:24 Lactic Acid 1.9 mmol/L (0.5-2.0) 11/25/18 15:24 Calcium 9.2 mg/dL (8.6-10.3) 11/25/18 15:24 Magnesium 1.8 mg/dL (1.9-2.7) L 11/26/18 16:44 Total Bilirubin 0.70 mg/dL (0.2-1.0) 11/25/18 15:24 AST 17 U/L (13-39) 11/25/18 15:24 ALT 9 U/L (7-52) 11/25/18 15:24 Alkaline Phosphatase 76 U/L (34-104) 11/25/18 15:24 Ammonia 44 mcmol/L (16-53) 11/25/18 16:49 Troponin I 0.01 ng/mL (<0.04) 11/25/18 15:24 Total Protein 7.5 g/dL (6.4-8.9) 11/25/18 15:24 Albumin 3.8 g/dL (3.2-5.2) 11/25/18 15:24 Globulin 3.7 g/dL (2-4) 11/25/18 15:24 Albumin/Globulin Ratio 1.0 (1-3) 11/25/18 15:24 TSH 5.17 mcIU/mL (0.34-5.60) 11/25/18 15:24 Digoxin 1.0 ng/ml (0.8-2.0) 11/25/18 15:24 Serum Alcohol < 10 mg/dL (<10) 11/25/18 15:24 - Objective Active Medications: Acetaminophen (Tylenol Tab*) 650 mg PO Q4H PRN PRN Reason: FEVER/PAIN Last Admin: 11/28/18 19:56 Dose: 650 mg Al Hydrox/Mg Hydrox/Simethicone (Maalox Plus*) 30 ml PO Q6H PRN PRN Reason: INDIGESTION Cyanocobalamin (Vitamin B12 Tab*) 500 mcg PO DAILY [facility] Last Admin: 11/29/18 08:01 Dose: 500 mcg Digoxin (Lanoxin Tab*) 0.125 mg PO DAILY [facility] Last Admin: 11/29/18 08:01 Dose: 0.125 mg Docusate Sodium (Colace Liq*) 100 mg PO BID PRN PRN Reason: CONSTIPATION Haloperidol Lactate (Haldol Inj Iv/Im*) 5 mg IV SLOW PU Q6H PRN PRN Reason: AGITATION Last Admin: 11/29/18 01:58 Dose: 5 mg Sodium Chloride (Ns 0.9% 1000 Ml) 1,000 mls @ 75 mls/hr IV PER RATE [facility] Last Admin: 11/29/18 06:36 Dose: 75 mls/hr Latanoprost (Xalatan 0.005%*) 1 drop BOTH EYES QPM [facility] Last Admin: 11/28/18 17:04 Dose: 1 drop Metoprolol Tartrate (Lopressor Tab*) 25 mg PO Q12HR [facility] Last Admin: 11/29/18 08:01 Dose: 25 mg Ondansetron HCl (Zofran Inj*) 4 mg IV Q4H PRN PRN Reason: NAUSEA/VOMITING Polyethylene Glycol/Electrolytes (Miralax*) 17 gm PO DAILY [facility] Last Admin: 11/29/18 08:06 Dose: Not Given Senna (Senokot Tab*) 1 tab PO BID [facility] Last Admin: 11/29/18 08:01 Dose: 1 tab Vital Signs: Vital Signs: Temp Pulse Resp BP Pulse Ox 96.9 F 116 20 148/100 100 11/29/18 15:40 11/29/18 15:40 11/29/18 15:40 11/29/18 15:40 11/29/18 15:40 Patient Weight: Weight 61.689 kg Intake and Output: Intake & Output 11/27/18 11/28/18 11/29/18 11/30/18 06:59 06:59 06:59 06:59 Intake Total 2881 2011 1246 100 Balance 2881 2011 1246 100 Weight 61.689 kg Intake: IV Fluids 2531 1802 1006 Normal saline 2531 1802 1006 IVPB 110 ABX - CEFTRIAXONE 110 Oral 240 210 240 100 Other: Estimated Void Medium Large Date of Last Bowel [id number] unknown Movement # Bowel Movements 1 0 0 Estimated Stool Amount Small # Voids 2 1 ADLs: Meal Record Start: 11/25/18 21: 47 Freq: DAILY@0900,1400,1800 Status: Active Protocol: Created 11/25/18 21:47 System (Rec: 11/25/18 21:47 System MED-M20) Document 11/26/18 09:00 [id number] (Rec: 11/26/18 10:16 [id number] MED-C11) Document 11/26/18 14:00 [id number] (Rec: 11/26/18 16:51 [id number] MED-C09) Document 11/26/18 18:00 [id number] (Rec: 11/26/18 19:22 [id number] MED-C09) Document 11/27/18 09:00 [id number] (Rec: 11/27/18 11:03 [id number] MED-M09) Document 11/27/18 13:54 [id number] (Rec: 11/27/18 13:56 [id number] MED-C13) Document 11/27/18 17:45 [id number] (Rec: 11/27/18 17:49 [id number] MED-M09) Document 11/28/18 09:00 [id number] (Rec: 11/28/18 10:32 [id number] MED-C11) Document 11/28/18 14:00 [id number] (Rec: 11/28/18 15:21 [id number] MED-C11) Document 11/28/18 18:00 [id number] (Rec: 11/28/18 18:26 [id number] MED-C11) Document 11/29/18 09:00 [id number] (Rec: 11/29/18 10:50 [id number] MED-C02) Document 11/29/18 14:00 [id number] (Rec: 11/29/18 15:04 [id number] MED-C09) Intake and Output Start: 11/25/18 14: 56 Freq: Status: Active Protocol: Created 11/25/18 14:56 System (Rec: 11/25/18 14:56 System [id number]) Intake and Output Start: 11/25/18 21: 47 Freq: DAILY@0600,1400,2200 Status: Active Protocol: Created 11/25/18 21:47 System (Rec: 11/25/18 21:47 System MED-M20) Document 11/26/18 06:00 [id number] (Rec: 11/26/18 06:13 [id number] MED-M18) Document 11/26/18 14:00 [id number] (Rec: 11/26/18 16:51 [id number] MED-C09) Document 11/26/18 22:00 [id number] (Rec: 11/26/18 22:36 [id number] MED-C09) Document 11/27/18 13:54 [id number] (Rec: 11/27/18 13:56 [id number] MED-C13) Document 11/27/18 21:59 [id number] (Rec: 11/27/18 22:01 [id number] MED-M09) Document 11/28/18 06:00 [id number] (Rec: 11/28/18 06:38 [id number] MED-C11) Document 11/28/18 14:00 [id number] (Rec: 11/28/18 15:21 [id number] MED-C11) Document 11/28/18 20:34 [id number] (Rec: 11/28/18 20:34 [id number] MED-C42) Document 11/29/18 04:54 [id number] (Rec: 11/29/18 04:57 [id number] MED-C13) Document 11/29/18 14:00 [id number] (Rec: 11/29/18 15:04 [id number] MED-C09) Eyes: No Scleral Icterus Ears/Nose/Mouth/Throat: Mucous Membranes Moist Neck: Trachea Midline Cardiovascular: NL Sounds; No Murmurs; No JVD, No Edema Abdominal: NL Sounds; No Tenderness; No Distention Extremities: No Edema Neurological: - - Alert, mumbling, pulling at blankets at times - Assessment Assessment: 87 yo male with mod/severe dementia presents to ER s/p fall and weakness with multiple bilateral PEs & VRE seeking hospice residence - Plan Consult Plan (MU): Hospice Plan: Long discussion with . She feels she is unable to continue to care for her at home safely. Her ideal situation would be for her to get a bed at the residence. She likes it because it is peaceful. Her second option is SNF with a referral to hospice. principal product manager was to send referral earlier today for hospice evaluation. Pt is eligible for hospice based on dementia/bladder ca/ multiple PEs, weight loss and multiple ER visits & hospitalizations. - Time On Unit Date of Evaluation: 11/29/18 Hospice Consult Time in: 11:30 Hospice Consult Time Out: 01:00 Hospice Consult Time Total: -630 > 50% of Time Spend In Counseling or Coordinating Care: Yes
[2018-11-29] MEDS ORDERED: Morphine ORAL.SOLN 10 mg* 2 MG/ML UDC 5 ml PO PRN (16:43)
[2018-11-29] MEDS: Latanoprost 0.005%* 2.5 ml BTL BOTH EYES SCH (17:01)
[2018-11-29] MEDS: Morphine ORAL.SOLN 10 mg* 2 MG/ML UDC 5 ml PO PRN ×2 (19:22→21:53)
[2018-11-30] MEDS: Senna TAB PO SCH ×2 (09:27→20:54)
[2018-11-30] MEDS: Cyanocobalamin TAB* 500 MCG PO SCH (09:27)
[2018-11-30] MEDS: Metoprolol Tartrate TAB* 25 MG PO SCH ×2 (09:27→20:54)
[2018-11-30] MEDS: Polyethylene Glycol 3350* 17 GM PACKET PO SCH (09:28)
[2018-11-30] MEDS: Digoxin TAB* 0.125 MG PO SCH (09:28)
[2018-11-30] MEDS: NS 0.9% 1000 ML** 1,000 ML IV SCH (09:41)
[2018-11-30] MEDS: Morphine ORAL.SOLN 10 mg* 2 MG/ML UDC 5 ml PO PRN (09:50)
--- NOTE | 2018-11-30 13:11 | PN ---
Subjective Date of Service: 11/30/18 Interval History: Mr. Vizcaino is unable to offer complaint but is in no acute distress. Objective Active Medications: Acetaminophen (Tylenol Tab*) 650 mg PO Q4H PRN Al Hydrox/Mg Hydrox/Simethicone (Maalox Plus*) 30 ml PO Q6H PRN Cyanocobalamin (Vitamin B12 Tab*) 500 mcg PO DAILY [facility] Digoxin (Lanoxin Tab*) 0.125 mg PO DAILY [facility] Docusate Sodium (Colace Liq*) 100 mg PO BID PRN Haloperidol Lactate (Haldol Inj Iv/Im*) 5 mg IV SLOW PU Q6H PRN Sodium Chloride (Ns 0.9% 1000 Ml) 1,000 mls @ 75 mls/hr IV PER RATE [facility] Latanoprost (Xalatan 0.005%*) 1 drop BOTH EYES QPM [facility] Metoprolol Tartrate (Lopressor Tab*) 25 mg PO Q12HR [facility] Morphine Sulfate (Morphine Oral.Soln 10 Mg*) 5 mg PO Q2H PRN Ondansetron HCl (Zofran Inj*) 4 mg IV Q4H PRN Polyethylene Glycol/Electrolytes (Miralax*) 17 gm PO DAILY [facility] Senna (Senokot Tab*) 1 tab PO BID [facility] Vital Signs: Temp Pulse Resp BP Pulse Ox 97.4 F 60 18 116/56 98 11/30/18 11:26 11/30/18 11:26 11/30/18 11:26 11/30/18 11:26 11/30/18 11:26 Oxygen Devices in Use Now: None Appearance: Male lying in bed in NAD Eyes: No Scleral Icterus Ears/Nose/Mouth/Throat: Mucous Membranes Moist Neck: Trachea Midline Respiratory: Symmetrical Chest Expansion and Respiratory Effort, Clear to Auscultation Cardiovascular: NL Sounds; No Murmurs; No JVD, No Edema Abdominal: NL Sounds; No Tenderness; No Distention Extremities: No Edema Skin: No Rash or Ulcers Neurological: - - Sleeping peacefully - Nutrition: Malnutrition Diagnosis/Plan Malnutrition Assessment by Registered Dietitian: Malnutrition Assessment Clinical Characteristics Acute,Severe Malnutrition Assessment: - Moderate temporal and clavicle muscle wasting Criteria - 10% wt loss x past month (per pt's ) Malnutrition Assessment: As able, will send Ensure Enlive w/ meals. 350 Interventions kcals, 20 grams protein. Malnutrition Assessment: Goals 1. Ultimately, intake will be adequate to promote wt repletion and maintain hydration. Result Diagrams: 11/25/18 15:24 11/25/18 15:24 Microbiology and Other Data: . Assess/Plan/Problems-Billing Assessment: Ms. Vizcaino is an 87yo male with PMH of advanced dementia, PE/DVT, AF, HTN, CAD, HLD, BPH, OA, scoliosis who is admitted for evaluation of weakness and altered mental status found to have pulmonary emboli and VRE UTI, now on comfort care. - Patient Problems (1) Need for comfort care Comment: - Morphine prn - Supportive care - Appreciate hospice consult, no bed available at residence, case management following to arrange NH placement. (2) DNR (do not resuscitate) Comment: Status and Disposition: Inpatient. Patient's opting for comfort care.
[2018-11-30] MEDS: Latanoprost 0.005%* 2.5 ml BTL BOTH EYES SCH (20:53)
[2018-12-01] MEDS: Senna TAB PO SCH ×2 (10:06→21:05)
[2018-12-01] MEDS: Cyanocobalamin TAB* 500 MCG PO SCH (10:06)
[2018-12-01] MEDS: Digoxin TAB* 0.125 MG PO SCH (10:06)
[2018-12-01] MEDS: Metoprolol Tartrate TAB* 25 MG PO SCH ×2 (10:06→21:05)
[2018-12-01] MEDS: Polyethylene Glycol 3350* 17 GM PACKET PO SCH (10:07)
--- NOTE | 2018-12-01 10:12 | PN ---
Subjective Date of Service: 12/01/18 Interval History: Mr. Vizcaino is not able to provide any subjective data. He is sitting in bed, quietly playing with the sheets. His 3 children are at the bedside. They feel as though he is more alert today than previous days. They believe he is comfortable and have no concerns, but many questions regarding care going forward. Family History: Unchanged from Admission Social History: Unchanged from Admission Past Medical History: Unchanged from Admission Objective Active Medications: Acetaminophen (Tylenol Tab*) 650 mg PO Q4H PRN FEVER/PAIN Digoxin (Lanoxin Tab*) 0.125 mg PO DAILY [facility] Docusate Sodium (Colace Liq*) 100 mg PO BID PRN CONSTIPATION Haloperidol Lactate (Haldol Inj Iv/Im*) 5 mg IV SLOW PU Q6H PRN AGITATION Latanoprost (Xalatan 0.005%*) 1 drop BOTH EYES QPM [facility] Metoprolol Tartrate (Lopressor Tab*) 25 mg PO Q12HR [facility] Morphine Sulfate (Morphine Oral.Soln 10 Mg*) 5 mg PO Q2H PRN PAIN Ondansetron HCl (Zofran Inj*) 4 mg IV Q4H PRN NAUSEA/VOMITING Senna (Senokot Tab*) 1 tab PO BID [facility] Vital Signs - 8 hr 12/01/18 07:56 Temperature 99.9 F Respiratory 15 Rate Blood Pressure 109/69 (mmHg) O2 Sat by Pulse 96 Oximetry Oxygen Devices in Use Now: None Appearance: Elderly male sitting in bed in NAD Eyes: No Scleral Icterus Ears/Nose/Mouth/Throat: Mucous Membranes Moist Neck: NL Appearance and Movements; NL JVP, Trachea Midline Respiratory: Symmetrical Chest Expansion and Respiratory Effort Cardiovascular: RRR Abdominal: NL Sounds; No Tenderness; No Distention Extremities: No Edema Neurological: - - Alert Lines/Tubes/Other Access: Clean, Dry and Intact Peripheral IV Nutrition: Taking PO's - Nutrition: Malnutrition Diagnosis/Plan Malnutrition Assessment by Registered Dietitian: Malnutrition Assessment Clinical Characteristics Acute,Severe Malnutrition Assessment: - Moderate temporal and clavicle muscle wasting Criteria - 10% wt loss x past month (per pt's ) Malnutrition Assessment: As able, will send Ensure Enlive w/ meals. 350 Interventions kcals, 20 grams protein. Malnutrition Assessment: Goals 1. Ultimately, intake will be adequate to promote wt repletion and maintain hydration. Result Diagrams: 11/25/18 15:24 11/25/18 15:24 Assess/Plan/Problems-Billing Assessment: Ms. Vizcaino is an 87 yo M with PMH of advanced dementia, PE/DVT, AF, HTN, CAD, HLD, BPH, OA, scoliosis; who is admitted for evaluation of weakness and altered mental status, found to have pulmonary emboli and VRE UTI, now on comfort care. - Patient Problems (1) Comfort measures only status Code(s): Z51.5 - ENCOUNTER FOR PALLIATIVE CARE Comment: - does not want further treatment and is agreeable to comfort care - Appreciate Palliative consult; meets criteria for hospice and is agreeable - Continue morphine PRN; will continue metoprolol and digoxin for comfort as long as he is still able to swallow safely (2) DNR (do not resuscitate) Comment: Status and Disposition: Inpatient. would prefer bed at Hospice residence, but no bed currently available. Case management working to obtain placement. Attending: Beba Villarreal
[2018-12-01] MEDS: Latanoprost 0.005%* 2.5 ml BTL BOTH EYES SCH (17:15)
[2018-12-01] MEDS: Morphine ORAL.SOLN 10 mg* 2 MG/ML UDC 5 ml PO PRN (21:11)
[2018-12-02 09:31] VITALS: BP 122/80
[2018-12-02] MEDS: Digoxin TAB* 0.125 MG PO SCH (10:35)
[2018-12-02] MEDS: Senna TAB PO SCH (10:35)
[2018-12-02] MEDS: Metoprolol Tartrate TAB* 25 MG PO SCH (10:35)
--- NOTE | 2018-12-02 10:41 | DS ---
CC: Dr. Nicolasa Garner * DISCHARGE SUMMARY: DATE OF ADMISSION: 11/25/18 DATE OF DISCHARGE: 12/02/18 PRIMARY CARE PROVIDER: Dr. Nicolasa Garner ATTENDING PHYSICIAN: Dr. Trevor Becerril * (dictatd by Annemarie Johnson NP) PRIMARY DIAGNOSES: 1. Pulmonary embolism. 2. Urinary tract infection. 3. Sepsis. 4. Septic encephalopathy. SECONDARY DIAGNOSES: 1. Dementia. 2. Paroxysmal atrial fibrillation. STUDIES WHILE IN THE HOSPITAL: 1. Brain CT on 11/25/18, reads as no acute intracranial pathology. Diffuse involutional change with chronic small vessel ischemic changes. 2. Cervical spine CT on 11/25/18, reads as osteopenia. Degenerative disk disease and osteoarthritis. No acute osseous injury to the cervical spine. 3. EKG on 11/25/18 shows sinus tachycardia with a rate of 114, QTc 418. I will note that this EKG is of very poor quality due to artifact. 4. EKG on 11/25/18 shows atrial flutter with a rate of 114, QTc 445, inverted T waves in 2 and 3. I will note that this EKG is of very poor quality due to artifact. 5. EKG on 11/25/18 shows atrial flutter with a rate of 113, QTc 454, occasional PVCs, inverted T waves in 2, 3, and aVF. 6. Chest thorax CTA on 11/28/18, reads as multiple bilateral pulmonary emboli. HISTORY OF PRESENT ILLNESS AND HOSPITAL COURSE: Mr. Vizcaino is an 87-year-old male with past medical history of paroxysmal atrial fibrillation, advanced dementia, hypertension, coronary artery disease, DVT, and PE in 2017 and hyperlipidemia, who presented to the emergency room on 11/25/18 with complaints of weakness and a fall. Please see the history and physical by Dr. Grigsby for complete summary of events leading up to this hospitalization. In short, the patient was brought in by his , according to her, he was diagnosed with constipation and UTI in the emergency room early in the day on 11/25/18. They were discharged to home and he subsequently fell and hit his left shoulder and the left side of his head. She called the EMS and he was brought to the emergency room for the second time that day. The patient was noted to be restless, delirious, and not able to answer questions. He was given ceftriaxone , Haldol, Ativan, and IV fluids in the emergency room. He was admitted by the hospitalist service for the concern for altered mental status and weakness. Imaging was completed as noted above and the patient was noted to have multiple bilateral pulmonary emboli. He did not appear to have a current urinary tract infection, although the urine culture from early in the day on 11/25/18 did grow greater than 100,000 colonies of VRE, Enterococcus faecalis, which was multiresistant. The patient's chose not to treat the UTI due to failed treatment in the past. Due to the patient's diagnosis and condition, the patient's ultimately was agreeable to palliative care and they had a consultation with Dr. Raymundo, who reported that the was unable to safely care for her at home and she would prefer for him to pass peacefully. She ideally wanted him to secure a bed at the hospice resident, so was agreeable to placement at a snf facility with a referral to hospice. Dr. Raymundo noted that the patient is eligible for hospice based on dementia, bladder cancer, multiple PEs, weight loss, and multiple ER visits and hospitalizations in recent months. The patient was not given any further treatments for his urinary tract infection or his pulmonary emboli. He has been appearing essentially asymptomatic and has not been requiring supplemental oxygen. He has been able to maintain oxygen saturations in the high 90s. He does not appear to have any urinary symptoms, though again he has not able to offer much subjective information due to his dementia. He continues to have altered mental status, which has increased from his baseline dementia. This is secondary to septic encephalopathy from his urinary tract infection, although again it was determined that there will be no further treatment for his urinary tract infection. I will note that the patient did receive 3 days of ceftriaxone while here in the hospital and he did have negative blood cultures. He has remained comfortable and has needed less than 5 doses of morphine for the duration of this day. He was also started on metoprolol in order to decrease his tachycardia and to keep him comfortable. Mr. Vizcaino is stable for discharge today. Vital signs are as follows: Temp 98.3, heart rate 93, respiratory rate 18, oxygen saturation 99% on room air, blood pressure 125/78. DISCHARGE MEDICATIONS: New Medications: 1. Acetaminophen 650 mg p.o. q.4 hours p.r.n. pain. 2. Metoprolol tartrate 25 mg p.o. q.12 hours. 3. Metoprolol oral concentrate 5 mg p.o. q.4 hours p.r.n. pain. 4. Senna 1 tab p.o. b.i.d. p.r.n. constipation. Continued medications: 1. Digoxin 125 mcg p.o. daily. 2. Latanoprost 0.005% 1 drop both eyes at bedtime. Discontinued medications: 1. Vitamin D3. 2. Vitamin B12. DISCHARGE PLAN: Mr. Vizcaino will be discharged to [facility] with a referral to hospice. I would recommend that the hospice referral be completed as soon as possible ideally this week in order to ensure the patient remains comfortable as his respiratory status may worsen at any time due to his PE burdens. ACTIVITY: As tolerated. DIET: Regular as tolerated, though I will note that the patient has not been taking in much oral intake. Medications are noted above. He can continue digoxin and metoprolol for comfort and I have prescribed a small supply of morphine oral concentrate to use until he can be seen by hospice and prescribed further pain management. He will need to follow up with the provider at [facility]. He should return to the emergency room or nearest hospital for any worsening of symptoms, shortness of breath, lightheadedness, dizziness, chest discomfort, high fevers, chills, night sweats, loss of consciousness, or any other worrisome signs or symptoms that are not adequately managed by hospice care. This is a summarized report of a complex medical history and hospital stay. For further details, please see the entire medical record. TIME SPENT: Approximately 45 minutes was spent on this discharge. ANNEMARIE JOHNSON NP [id number]/[facility] #: [id number] JOHN
== END 2018-12-02 12:50 | disposition hospice, home (50) | DRG 871 ==
LOC: ED 14:46 → MED 21:25
PROVIDERS: ADMIT Pediatrics; ATTEND Internal Medicine
DX: A41.9 Sepsis, unspecified organism (principal); I26.99 Other pulmonary embolism without acute cor pulmonale; G93.41 Metabolic encephalopathy; E43 Unspecified severe protein-calorie malnutrition; N39.0 Urinary tract infection, site not specified; I48.92 Unspecified atrial flutter; Z68.1 Body mass index [BMI] 19.9 or less, adult; I48.0 Paroxysmal atrial fibrillation; Z51.5 Encounter for palliative care; F03.90 Unspecified dementia, unspecified severity, without behavioral disturbance, psychotic disturbance, mood disturbance, and anxiety; Z66 Do not resuscitate; I10 Essential (primary) hypertension; I25.10 Atherosclerotic heart disease of native coronary artery without angina pectoris; E78.5 Hyperlipidemia, unspecified; M85.88 Other specified disorders of bone density and structure, other site; M19.90 Unspecified osteoarthritis, unspecified site; M47.9 Spondylosis, unspecified; M50.30 Other cervical disc degeneration, unspecified cervical region; I49.3 Ventricular premature depolarization; M81.0 Age-related osteoporosis without current pathological fracture; M41.9 Scoliosis, unspecified; H26.9 Unspecified cataract; R40.2412 Glasgow coma scale score 13-15, at arrival to emergency department; K59.00 Constipation, unspecified; N40.0 Benign prostatic hyperplasia without lower urinary tract symptoms; K57.30 Diverticulosis of large intestine without perforation or abscess without bleeding; C67.9 Malignant neoplasm of bladder, unspecified; B95.2 Enterococcus as the cause of diseases classified elsewhere; Z16.21 Resistance to vancomycin; Z86.711 Personal history of pulmonary embolism; Z86.718 Personal history of other venous thrombosis and embolism; Z88.8 Allergy status to other drugs, medicaments and biological substances; Z87.01 Personal history of pneumonia (recurrent); Z86.19 Personal history of other infectious and parasitic diseases; Z87.891 Personal history of nicotine dependence; Z87.440 Personal history of urinary (tract) infections; Z96.60 Presence of unspecified orthopedic joint implant; Z87.442 Personal history of urinary calculi
CPT/HCPCS: 36415; 70450; 71275; 72125; 80053; 80162; 80320; 82140; 82375; 83605; 83735; 84443; 84484; 85025; 85379; 87040; 93005; 99284; A9270-GY; G0480; G8987-GO-CN; G8988-GO-CL; J0696; J1630; J1644; J2060; J2405; Q9967